=== PATIENT | male | born 1985 ===

== ENCOUNTER 2019-12-21 11:39 | Outpatient (REF) | payer BC, SELFPAY | END 2019-12-21 11:40 | disposition home or self-care (01) | LOC: HO.HMGCLDS 11:39 | PROVIDERS: PCP Internal Medicine; Visit Provider Internal Medicine | DX: Z20.828 Contact with and (suspected) exposure to other viral communicable diseases (principal) | CPT/HCPCS: 87635 ==

== ENCOUNTER 2021-11-25 07:50 | Outpatient (REF) | payer BC, SELFPAY ==
[2021-11-25 08:19] LABS: MANUAL DIFF FLAG NO
[2021-11-25 09:11] LABS: Basophils Absolute Auto 0.1 X10*3/uL (0.0-0.2); Basophils Percent Auto 0.7 % (0-2); Eosinophils Absolute Auto 0.2 X10*3/uL (0.0-0.4); Eosinophils Percent Auto 2.2 % (0-4); Hematocrit 53.3 % (42.0-52.0); Hemoglobin 17.5 g/dl (14.0-18.0); Imm Gran Abs Auto 0.06 X10*3/uL (0.00-0.03); Imm Gran Pct Auto 0.7 % (0.0-0.4); Lymphocytes Absolute Auto 2.9 X10*3/uL (1.2-4.9); Lymphocytes Percent Auto 36.4 % (20-40); Mean Corpuscular HGB Conc 32.8 g/dl (31.0-36.0); Mean Corpuscular Volume 85.3 fL (80.0-98.0); Mean Platelet Volume 11.7 fL (9.4-12.4); Monocytes Absolute Auto 0.5 X10*3/uL (0.1-1.2); Monocytes Percent Auto 6.6 % (2-11); Neutrophils Absolute Auto 4.3 x10*3/uL (2.0-8.3); Neutrophils Percent Auto 53.4 % (45-73); Platelet Count 187 X10*3/uL (160-400); Red Blood Count 6.25 X10*6/uL (4.60-5.80); Red Cell Distribution Width 13.7 % (11.0-16.0); White Blood Count 8.1 X10*3/uL (4.8-10.8)
[2021-11-25 09:23] LABS: Appearance Urine Clear; Color Urine Yellow; Glucose Urine UA 250 mg/dL (Negative); Leukocyte Esterase Urine Negative (Negative); Nitrite Urine Negative (Negative); PH 5.5 (5.0-9.0); Urine Blood Negative (Negative); Urine Ketones Negative (Negative); Urine Protein Negative (Neg-Trace)
[2021-11-25 09:47] LABS: Alanine Aminotransferase 101 U/L (0-40); Albumin Level 4.7 g/dL (3.5-5.0); Alkaline Phosphatase 74 U/L (39-117); Anion Gap 22 (12-20); Aspartate Amino Transferase 70 U/L (5-37); Bilirubin Total 0.5 mg/dL (0.0-1.0); Blood Urea Nitrogen 17 mg/dL (9-16); Calcium 9.9 mg/dL (8.4-10.2); Carbon Dioxide 21 mmol/L (22-29); Chloride 98 mmol/L (96-108); Cholesterol 332 mg/dL; Estimated Glomerular Filt Rate > 60; Glucose Fasting 154 mg/dL (60-99); HDL Cholesterol 31 mg/dL; Potassium 4.7 mmol/L (3.3-5.1); Sodium 136 mmol/L (135-145); Total Protein 8.6 g/dL (6.5-8.0); Uric Acid 6.2 mg/dL (3.4-7.0)
[2021-11-25 09:53] LABS: HBc Num1 0.09 S/CO (0.00-0.79); HIV AB/AG Nonreactive (Nonreactive); HIV Num 1 0.18 S/CO (0.00-0.99); Hepatitis B Core Antibody Nonreactive (Nonreactive); Hepatitis B Surface Antigen Negative (Negative); ~HepC Num1 0.11 S/CO (0.00-0.79); ~Hepatitis B Surface Antibody REACTIVE (Nonreactive); ~Hepatitis C Antibody Nonreactive (Nonreactive)
[2021-11-25 09:54] LABS: Triglycerides 1652 mg/dL
[2021-11-25 10:01] LABS: Vitamin D 25-OH Total 21.3 ng/mL (>30)
[2021-11-25 10:03] LABS: Syphilis Screen Nonreactive (Nonreactive)
[2021-12-02 11:21] LABS: HSV 1 IgM IFA Negative (Negative); HSV 2 IgM IFA Negative (Negative)
== END 2021-11-25 07:51 | disposition home or self-care (01) ==
LOC: HO.LAB 07:50
PROVIDERS: PCP Internal Medicine; Visit Provider Internal Medicine
DX: Z00.00 Encounter for general adult medical examination without abnormal findings (principal); E55.9 Vitamin D deficiency, unspecified; E78.00 Pure hypercholesterolemia, unspecified; I10 Essential (primary) hypertension; M10.9 Gout, unspecified; Z11.3 Encounter for screening for infections with a predominantly sexual mode of transmission
CPT/HCPCS: 36415; 80053; 80061; 81003; 82306; 84443; 84550; 85025; 86695; 86696; 86704; 86706; 86780; 86803; 87340; 87389

== ENCOUNTER 2021-12-10 13:20 | Outpatient (REF) | payer BC, SELFPAY ==
--- NOTE | ~2021-12-10 | US_ITS ---
EXAMINATION: US RETROPERITONEAL LIMITED (RENAL ONLY) CLINICAL INFORMATION: Calculus of kidney. COMPARISON: None TECHNIQUE: Real-time imaging of the kidneys. FINDINGS: RIGHT KIDNEY: 14.8 x 5.1 x 7.2 cm (SAG x AP x TRV). The kidney is normal in size, contour, and echogenicity. Renal cortical thickness is normal. No calculi or focal parenchymal lesions. No hydronephrosis. LEFT KIDNEY: 13.8 x 6.7 x 6.6 cm (SAG x AP x TRV). The kidney is normal in size, contour, and echogenicity. Renal cortical thickness is normal. There is a 3 x 3.1 x 3.5 cm cyst exophytic to the midpole. No renal calculi or hydronephrosis. The liver is echogenic. US/US renal BI IMPRESSION: No stone seen. Left renal cyst.
== END 2021-12-10 13:21 | disposition home or self-care (01) ==
LOC: HO.US 13:20
PROVIDERS: Visit Provider Internal Medicine
DX: N20.0 Calculus of kidney (principal)
CPT/HCPCS: 76775

== ENCOUNTER 2022-04-12 10:56 | Outpatient (REF) | payer BC, SELFPAY ==
[2022-04-12 12:38] LABS: Appearance Urine Clear; Color Urine Yellow; Glucose Urine UA >=1000 mg/dL (Negative); Leukocyte Esterase Urine Negative (Negative); Nitrite Urine Negative (Negative); PH 6.5 (5.0-9.0); Specific Gravity - Urine >= 1.030 (1.005-1.025); UMIC TRIGGER UACC YES; Urine Blood Negative (Negative); Urine Ketones Negative (Negative); Urine Protein Negative (Neg-Trace)
[2022-04-12 12:55] LABS: Bacteria Urine None Seen (None Seen); Hyaline Casts Urine 0-2 /LPF (0-2); RBC Urine 0-2 /HPF (0-2); Squamous Epithelial Cell Urine 0-2 /HPF (0-2); WBC Urine 0-5 /HPF (0-5)
== END 2022-04-12 10:57 | disposition home or self-care (01) ==
LOC: HO.LAB 10:56
PROVIDERS: PCP Internal Medicine; Visit Provider Internal Medicine
DX: N20.0 Calculus of kidney (principal); R39.9 Unspecified symptoms and signs involving the genitourinary system
CPT/HCPCS: 81001

== ENCOUNTER 2022-04-18 05:11 | Emergency (ER) | payer BC, SELFPAY ==
[2022-04-18 05:26] VITALS: PULSE 100; RESP 21; TEMP 36.9; O2SAT 98; BMI 31.6
--- NOTE | 2022-04-18 05:42 | PC.NURSE ---
Patient states that his lips and mouth feels dry and he felt like he had a fever sometimes this week but is not sure. He reports drinking adequately but goes to the bathroom instantly and urines.
[2022-04-18 06:04] LABS: Basophils Absolute Auto 0.1 X10*3/uL (0.0-0.2); Basophils Percent Auto 0.6 % (0-2); Eosinophils Absolute Auto 0.2 X10*3/uL (0.0-0.4); Eosinophils Percent Auto 1.5 % (0-4); Hematocrit 48.1 % (42.0-52.0); Imm Gran Abs Auto 0.07 X10*3/uL (0.00-0.03); Imm Gran Pct Auto 0.6 % (0.0-0.4); Lymphocytes Absolute Auto 1.9 X10*3/uL (1.2-4.9); Lymphocytes Percent Auto 16.5 % (20-40); Mean Corpuscular Volume 84.4 fL (80.0-98.0); Mean Platelet Volume 11.5 fL (9.4-12.4); Monocytes Absolute Auto 0.9 X10*3/uL (0.1-1.2); Monocytes Percent Auto 8.1 % (2-11); Neutrophils Absolute Auto 8.1 x10*3/uL (2.0-8.3); Neutrophils Percent Auto 72.7 % (45-73); Platelet Count 229 X10*3/uL (160-400); Red Cell Distribution Width 14.4 % (11.0-16.0); SCAN SMEAR FLAG 1; White Blood Count 11.2 X10*3/uL (4.8-10.8)
[2022-04-18 06:08] LABS: Hemoglobin 16.1 g/dl (14.0-18.0); MANUAL DIFF FLAG NO; Mean Corpuscular HGB Conc 33.5 g/dl (31.0-36.0); Mean Corpuscular Hemoglobin 28.2 pg (27.0-33.0)
[2022-04-18 07:09] LABS: Appearance Urine Clear; Color Urine Yellow; Glucose Urine UA >=1000 mg/dL (Negative); Leukocyte Esterase Urine Negative (Negative); Nitrite Urine Negative (Negative); PH 5.5 (5.0-9.0); Specific Gravity - Urine >= 1.030 (1.005-1.025); UMIC TRIGGER UACC YES; Urine Blood Negative (Negative); Urine Ketones Negative (Negative); Urine Protein Negative (Neg-Trace)
--- NOTE | 2022-04-18 07:13 | ED_ITS ---
HPI - Male Genitourinary General Chief complaint: Urogenital-Male Stated complaint: ?UTI Time Seen by Provider: 04/18/22 06:38 Mode of arrival: ambulatory Limitations: no limitations History of Present Illness HPI Narrative: This is a 36 years old male presented to the emergency room with chief complaint of frequency of urination, he is concerned about a UTI. Symptoms have been going on for about 2 week. He denies any fever chills vomiting abdominal pain Onset (ago): week(s) (2) Duration: constant Severity: moderate Relieving factors: none Exacerbating factors: none Related Data Previous Rx's Medication Instructions Recorded amlodipine 5 mg tablet 5 mg PO DAILY 90 days #90 tabs 11/24/21 lisinopril 40 mg tablet 40 mg PO DAILY 90 days #90 tabs 11/24/21 allopurinol 300 mg tablet 300 mg PO DAILY 90 days #90 tabs 04/17/22 atorvastatin 40 mg tablet 40 mg PO DAILY 90 days #90 tabs 04/17/22 indomethacin 25 mg capsule 25 mg PO BID 90 days #180 caps 04/17/22 metformin 500 mg tablet 500 mg PO BID #30 tabs 04/18/22 Allergies Allergy/AdvReac Type Severity Reaction Status Date / Time codeine [CODEINE] Allergy Unknown UNKNOWN Verified 11/24/21 14:18 Review of Systems Constitutional: Constitutional: Reports no additional constitutional complaints ENT: Reports system reviewed and no additional complaints, except as documented Respiratory: Respiratory: Reports no additional respiratory complaints Genitourinary: Genitourinary: Reports urinary frequency and Reports urinary urgency ON LICENSE OF [facility] Past Medical History Medical History Asthma Benign essential hypertension Gout Obesity (BMI 30-39.9) Obstructive sleep apnea Pure hypercholesterolemia Renal calculi Surgical History No pertinent past surgical history Family History Family History Father Hypertension Stroke Mother Hypertension Maternal Grandfather Myocardial infarction Social History Social History Housing: Apartment Alcohol intake: current Alcohol intake frequency: holidays/special occasions only Patient Tobacco Use Status: Never used Tobacco Second Hand Smoke Exposure: Yes Advance Directives: No service: No Current occupational status: employed Cognitive needs: No Hearing needs: No Vision needs: Yes Physical Exam Vital Signs: Vital Signs: Last Vital Signs Temp 98.0 F 04/18/22 12:42 Pulse 123 H 04/18/22 12:42 Resp 16 04/18/22 12:42 BP 141/96 H 04/18/22 12:42 Pulse Ox 96 04/18/22 12:42 O2 Del Method 04/18/22 12:42 BMI result Body Mass Index 31.6 Const: General: cooperative Nutritional Appearance: well nourished Orientation/consciousness: patient oriented x3 HEENT: Head: Yes normal to inspection Ears: hearing grossly normal bilaterally General nose exam: Normal external nose present Face and sinus: Yes normal facial exam Mouth: Normal oral and palatal mucosa present Throat: Yes posterior oropharynx normal Neck: Neck: Yes normal visual inspection and Yes full ROM Resp: Effort & Inspection: normal respiratory effort Auscultation: clear to auscultation bilaterally Cardio: Jugular venous distension: no JVD Rate: regular rate Rhythm: regular rhythm GI: Inspection: Yes normal to inspection Palpation (GI): Soft to palpation, not firm, nontender and no guarding Skin: General skin exam: no rashes or lesions noted, elasticity normal and turgor normal Lesions: no lesions Rashes: no rashes Neuro: General: patient oriented x3 Cranial nerves: Yes CN's II-XII intact bilaterally Course Reevaluation(s) Reevaluation #1: Point of care glucose done elevated too high to read, clinical picture is cons istent with the new onset of diabetes likely type 2, will give him fluid check his electrolytes/ acetone Time: 07:19 Reevaluation #2: BLOOD SUGAR 343 BETTER C02 normal,feeling much better. Time: 13:11 Reevaluation #3: BLOOD SUGAR 325 ANTICIPATE DISCHARGE CALL PLACED TO PCP x 2 NO ANSWER Additional Reevaluation(s): 1.15 PM SPOKE WITH COVERING pcp dr Zapata,agree with plan of care Medications Administered Discontinued Medications Generic Name Dose Route Start Last Admin Trade Name Freq PRN Reason Stop Dose Admin Sodium Chloride 1,000 mls @ 999 mls/hr 04/18/22 07:30 04/18/22 09:26 Ns IVCONT 04/18/22 08:30 Infused .Q1H1M KLAUDIA Infusion Sodium Chloride 1,000 mls @ 999 mls/hr 04/18/22 07:30 04/18/22 09:27 Ns IVCONT 04/18/22 08:30 Infused .Q1H1M KLAUDIA Infusion Sodium Chloride 1,000 mls @ 999 mls/hr 04/18/22 08:30 04/18/22 11:39 Ns IVCONT 04/18/22 09:30 Infused .Q1H1M KLAUDIA Infusion Metformin HCl 500 mg 04/18/22 11:34 04/18/22 12:52 Metformin Hcl 500 Mg Tablet PO 04/18/22 11:35 500 mg ONCE ONE Administration Medical Decision Making Medical Decision Making MDM Narrative: Patient presented with frequency will check a UA labs 13:16 BLOOD SUGAR MUCH BETTER JUST WITH FLUID WENT FROM 600 RANGE TO 315 Differential Diagnosis Differential Diagnoses: The differential diagnosis associated with the presentation includes Differential diagnosis UTI/kidney stone/diabetes Lab Data 04/18/22 05:59 Labs: Lab Results 04/18/22 04/18/22 04/18/22 Range/Units 05:59 06:55 07:15 WBC 11.2 H (4.8-10.8) X10*3/uL RBC 5.70 (4.60-5.80) X10*6/uL Hgb 16.1 (14.0-18.0) g/dl Hct 48.1 (42.0-52.0) % MCV 84.4 (80.0-98.0) fL MCH 28.2 (27.0-33.0) pg MCHC 33.5 (31.0-36.0) g/dl RDW 14.4 (11.0-16.0) % Plt Count 229 (160-400) X10*3/uL MPV 11.5 (9.4-12.4) fL Immature Gran % (Auto) 0.6 H (0.0-0.4) % Neut % (Auto) 72.7 (45-73) % Lymph % (Auto) 16.5 L (20-40) % [place] % (Auto) 8.1 (2-11) % Eos % (Auto) 1.5 (0-4) % Baso % (Auto) 0.6 (0-2) % Lymph # (Auto) 1.9 (1.2-4.9) X10*3/uL [place] # (Auto) 0.9 (0.1-1.2) X10*3/uL Eos # (Auto) 0.2 (0.0-0.4) X10*3/uL Baso # (Auto) 0.1 (0.0-0.2) X10*3/uL Abs Immat Gran (auto) 0.07 H (0.00-0.03) X10*3/uL Absolute Neuts (auto) 8.1 (2.0-8.3) x10*3/uL Absolute Nucleated RBC 0.000 (0.0-0.012) X10*3/uL Nucleated RBC % (auto) 0.0 (0.0-0.2) /100WBC Sodium (135-145) mmol/L Potassium (3.3-5.1) mmol/L Chloride (96-108) mmol/L Carbon Dioxide (22-29) mmol/L Anion Gap (12-20) BUN (9-16) mg/dL Creatinine (0.5-1.4) mg/dL Estim Creat Clear Calc Estimated GFR POC Glucose > 600 H* (60-115) mg/dL Random Glucose (60-115) mg/dL Calcium (8.4-10.2) mg/dL Total Bilirubin (0.0-1.0) mg/dL AST (5-37) U/L ALT (0-40) U/L Alkaline Phosphatase (39-117) U/L Total Protein (6.5-8.0) g/dL Albumin (3.5-5.0) g/dL Urine Color Yellow Urine Appearance Clear Urine pH 5.5 (5.0-9.0) Ur Specific [place] >= 1.030 H (1.005-1.025) Urine Protein Negative (Neg-Trace) mg/dL Urine Glucose (UA) >=1000 H (Negative) mg/dL Urine Ketones Negative (Negative) mg/dL Urine Blood Negative (Negative) Urine Nitrite Negative (Negative) Ur Leukocyte Esterase Negative (Negative) Urine RBC 0-2 (0-2) /HPF Urine WBC 0-5 (0-5) /HPF Ur Squamous Epith Cells 0-2 (0-2) /HPF Urine Bacteria None Seen (None Seen) Hyaline Casts 0-2 (0-2) /LPF Acetone, Qual (Negative) 04/18/22 04/18/22 04/18/22 Range/Units 07:19 07:19 07:25 WBC (4.8-10.8) X10*3/uL RBC (4.60-5.80) X10*6/uL Hgb (14.0-18.0) g/dl Hct (42.0-52.0) % MCV (80.0-98.0) fL MCH (27.0-33.0) pg MCHC (31.0-36.0) g/dl RDW (11.0-16.0) % Plt Count (160-400) X10*3/uL MPV (9.4-12.4) fL Immature Gran % (Auto) (0.0-0.4) % Neut % (Auto) (45-73) % Lymph % (Auto) (20-40) % [place] % (Auto) (2-11) % Eos % (Auto) (0-4) % Baso % (Auto) (0-2) % Lymph # (Auto) (1.2-4.9) X10*3/uL [place] # (Auto) (0.1-1.2) X10*3/uL Eos # (Auto) (0.0-0.4) X10*3/uL Baso # (Auto) (0.0-0.2) X10*3/uL Abs Immat Gran (auto) (0.00-0.03) X10*3/uL Absolute Neuts (auto) (2.0-8.3) x10*3/uL Absolute Nucleated RBC (0.0-0.012) X10*3/uL Nucleated RBC % (auto) (0.0-0.2) /100WBC Sodium 132 L (135-145) mmol/L Potassium 5.0 (3.3-5.1) mmol/L Chloride 92 L (96-108) mmol/L Carbon Dioxide 24 (22-29) mmol/L Anion Gap 21 H (12-20) BUN 14 (9-16) mg/dL Creatinine 1.36 (0.5-1.4) mg/dL Estim Creat Clear Calc 84.6 Estimated GFR 59 POC Glucose 593 H* (60-115) mg/dL Random Glucose 662 H* (60-115) mg/dL Calcium 9.4 (8.4-10.2) mg/dL Total Bilirubin 0.5 (0.0-1.0) mg/dL AST 29 (5-37) U/L ALT 58 H (0-40) U/L Alkaline Phosphatase 148 H (39-117) U/L Total Protein 7.8 (6.5-8.0) g/dL Albumin 4.1 (3.5-5.0) g/dL Urine Color Urine Appearance Urine pH (5.0-9.0) Ur Specific [place] (1.005-1.025) Urine Protein (Neg-Trace) mg/dL Urine Glucose (UA) (Negative) mg/dL Urine Ketones (Negative) mg/dL Urine Blood (Negative) Urine Nitrite (Negative) Ur Leukocyte Esterase (Negative) Urine RBC (0-2) /HPF Urine WBC (0-5) /HPF Ur Squamous Epith Cells (0-2) /HPF Urine Bacteria (None Seen) Hyaline Casts (0-2) /LPF Acetone, Qual Negative (Negative) 04/18/22 04/18/22 Range/Units 11:01 11:49 WBC (4.8-10.8) X10*3/uL RBC (4.60-5.80) X10*6/uL Hgb (14.0-18.0) g/dl Hct (42.0-52.0) % MCV (80.0-98.0) fL MCH (27.0-33.0) pg MCHC (31.0-36.0) g/dl RDW (11.0-16.0) % Plt Count (160-400) X10*3/uL MPV (9.4-12.4) fL Immature Gran % (Auto) (0.0-0.4) % Neut % (Auto) (45-73) % Lymph % (Auto) (20-40) % [place] % (Auto) (2-11) % Eos % (Auto) (0-4) % Baso % (Auto) (0-2) % Lymph # (Auto) (1.2-4.9) X10*3/uL [place] # (Auto) (0.1-1.2) X10*3/uL Eos # (Auto) (0.0-0.4) X10*3/uL Baso # (Auto) (0.0-0.2) X10*3/uL Abs Immat Gran (auto) (0.00-0.03) X10*3/uL Absolute Neuts (auto) (2.0-8.3) x10*3/uL Absolute Nucleated RBC (0.0-0.012) X10*3/uL Nucleated RBC % (auto) (0.0-0.2) /100WBC Sodium (135-145) mmol/L Potassium (3.3-5.1) mmol/L Chloride (96-108) mmol/L Carbon Dioxide (22-29) mmol/L Anion Gap (12-20) BUN (9-16) mg/dL Creatinine (0.5-1.4) mg/dL Estim Creat Clear Calc Estimated GFR POC Glucose 342 H 325 H (60-115) mg/dL Random Glucose (60-115) mg/dL Calcium (8.4-10.2) mg/dL Total Bilirubin (0.0-1.0) mg/dL AST (5-37) U/L ALT (0-40) U/L Alkaline Phosphatase (39-117) U/L Total Protein (6.5-8.0) g/dL Albumin (3.5-5.0) g/dL Urine Color Urine Appearance Urine pH (5.0-9.0) Ur Specific [place] (1.005-1.025) Urine Protein (Neg-Trace) mg/dL Urine Glucose (UA) (Negative) mg/dL Urine Ketones (Negative) mg/dL Urine Blood (Negative) Urine Nitrite (Negative) Ur Leukocyte Esterase (Negative) Urine RBC (0-2) /HPF Urine WBC (0-5) /HPF Ur Squamous Epith Cells (0-2) /HPF Urine Bacteria (None Seen) Hyaline Casts (0-2) /LPF Acetone, Qual (Negative) Discharge Plan Discharge Clinical Impression: Diabetes mellitus, new onset Patient Disposition: Home, Self-Care Instructions: Type 2 Diabetes in Adults: New Diagnosis (ED) Additional Instructions: FOLLOW-UP WITH YOUR PRIMARY CARE PHYSICIAN TOMORROW SCHEDULED RETURN IF YOU WORSE Prescriptions: New metformin 500 mg tablet 500 mg PO BID Qty: 30 0RF No Action atorvastatin 40 mg tablet 40 mg PO DAILY 90 Days Qty: 90 1RF allopurinol 300 mg tablet 300 mg PO DAILY 90 Days Qty: 90 1RF indomethacin 25 mg capsule 25 mg PO BID 90 Days Qty: 180 1RF amlodipine 5 mg tablet 5 mg PO DAILY 90 Days Qty: 90 1RF lisinopril 40 mg tablet 40 mg PO DAILY 90 Days Qty: 90 1RF Rx Instructions: 1 tablet Orally Once a day Referrals: Aurelio Sellers MD [Primary Care Provider] - 1 day Interventions: ED Discharge Assessment Last Done: 04/18/22 14:03 Discharge Date/Time: 04/18/22 14:03
[2022-04-18 07:14] LABS: Bacteria Urine None Seen (None Seen); Hyaline Casts Urine 0-2 /LPF (0-2); RBC Urine 0-2 /HPF (0-2); Squamous Epithelial Cell Urine 0-2 /HPF (0-2); WBC Urine 0-5 /HPF (0-5)
[2022-04-18 07:19] LABS: Glucose, Whole Blood > 600 mg/dL (60-115)
[2022-04-18] MEDS: 0.9 % Sodium Chloride 1,000 ML 999 ML IVCONT ×3 (07:25→09:18)
[2022-04-18 07:28] LABS: Glucose, Whole Blood 593 mg/dL (60-115)
[2022-04-18 07:38] LABS: Acetone, serum QL Negative (Negative)
[2022-04-18 08:16] LABS: Alanine Aminotransferase 58 U/L (0-40); Albumin Level 4.1 g/dL (3.5-5.0); Alkaline Phosphatase 148 U/L (39-117); Anion Gap 21 (12-20); Aspartate Amino Transferase 29 U/L (5-37); Bilirubin Total 0.5 mg/dL (0.0-1.0); Blood Urea Nitrogen 14 mg/dL (9-16); Calcium 9.4 mg/dL (8.4-10.2); Carbon Dioxide 24 mmol/L (22-29); Chloride 92 mmol/L (96-108); Creatinine Clr Calc Pharmacy 84.6; Estimated Glomerular Filt Rate 59; Glucose Random 662 mg/dL (60-115); Sodium 132 mmol/L (135-145); Total Protein 7.8 g/dL (6.5-8.0)
[2022-04-18 08:21] VITALS: BP 134/92; PULSE 118; RESP 16; O2SAT 94
[2022-04-18 11:04] LABS: Glucose, Whole Blood 342 mg/dL (60-115)
[2022-04-18 11:53] LABS: Glucose, Whole Blood 325 mg/dL (60-115)
[2022-04-18 12:42] VITALS: BP 141/96; PULSE 123; RESP 16; TEMP 36.7; O2SAT 96
[2022-04-18] MEDS: metFORMIN HCl 500 MG TABLET PO (12:52)
== END 2022-04-18 14:03 | disposition home or self-care (01) ==
PROVIDERS: Emergency Provider Emergency Medicine; PCP Internal Medicine
DX: E11.9 Type 2 diabetes mellitus without complications (principal); Z79.899 Other long term (current) drug therapy
CPT/HCPCS: 36415; 80053; 81001; 82009; 82947; 85025; 96360; 96361; 99284

== ENCOUNTER 2022-04-21 11:19 | Inpatient (IN) | payer BC, SELFPAY ==
[2022-04-21] VITALS (11 sets, daily range): BP systolic 96–114; BP diastolic 40–65; PULSE 122–135; RESP 22–38; TEMP 36.1–37.7; O2SAT 94–99; BMI 31.4
--- NOTE | ~2022-04-21 | FL_ITS ---
EXAMINATION: XR UPPER GI SERIES WITH SMALL BOWEL CLINICAL INFORMATION: Duodenitis, pancreatitis. COMPARISON: CT abdomen and pelvis 04/24/2022. TECHNIQUE: Routine upper GI series performed with small bowel follow-through was performed. FINDINGS: KUB reveals nonspecific bowel gas pattern. No radiopaque calculi. No organomegaly. No gross bony abnormality. Following oral administration of thick barium and effervescent granules, there is normal propagation of bolus from oral cavity through the pharynx and esophagus and into the stomach without obstruction, narrowing or stricture. On placing patient supine and prone lying, the course, caliber and peristalsis of the stomach, duodenal bulb and the sweep is normal. No mucosal irregularity seen involving any segments of the duodenum as was felt to be of normal on the preceding CT abdomen pelvis exam. There is no gastroesophageal reflux or hiatal hernia. Sequential images obtained of small bowel reveal normal course, caliber and mucosal pattern of the small bowel. The ileocecal junction is normal. The appendix is normal. The cecum and ascending colon is normal. The small bowel transit time is 60 minutes and less. FLUOROSCOPY TIME: 3.5 minutes. DOSE AREA PRODUCT: 91.090 Gy-cm2. FL/FL upper GI small bowel IMPRESSION: Normal upper GI exam. Especially no abnormal mucosal abnormality seen involving the distal duodenum bulb or the C-loop. No gastroesophageal reflux. Unremarkable small bowel follow-through with small bowel transit time of less than 60 minutes.
--- NOTE | ~2022-04-21 | CT_ITS ---
EXAMINATION: CT ABDOMEN AND PELVIS WITH CONTRAST CLINICAL INFORMATION: Increased triglycerides COMPARISON: CT abdomen pelvis 3 days ago on 04/21/2022 TECHNIQUE: Multidetector volumetric images were obtained from the superior aspect of the liver through the pubic symphysis following administration 85 mL of Omnipaque 350 intravenous contrast. Sagittal and coronal reformatted images were obtained on the technologist's workstation. Oral contrast: No This CT examination was performed using dose optimization techniques as appropriate, variously including the following: *Automated exposure control *Adjustment of mA and/or kV according to patient size (this includes techniques or standardized protocols for targeted exams where dose is matched to indication/reason for exam; i.e. extremities or head) *Use of iterative reconstruction technique DLP: 668 mGy-cm FINDINGS: LUNG BASES: New bibasilar atelectasis is present. Coronary artery calcification is present. LIVER, GALLBLADDER, AND BILIARY TREE: The liver is again noted to be markedly enlarged at 23 cm with markedly decreased attenuation consistent with hepatic steatosis. Focal fatty sparing is noted around the gallbladder, falciform ligament and in the caudate No focal hepatic lesion or biliary ductal dilatation is present. The gallbladder is unremarkable with no evidence of radiopaque gallstones, gallbladder wall thickening, or obvious pericholecystic inflammatory changes. PANCREAS: The pancreas appears normal and enhances uniformly with a normal lobular contour SPLEEN: Unremarkable. ADRENAL GLANDS: Unremarkable. KIDNEYS AND URETERS: The kidneys are normal in size, shape, and attenuation. No hydronephrosis, hydroureter, or calculi seen. Again seen is a benign cortical 3.5 cm Bosniak class I left renal cyst which needs no additional imaging or follow-up. No perinephric stranding. BLADDER: There is symmetric bladder wall thickening. GASTROINTESTINAL TRACT: Once again seen is a severe inflammatory process centered around the second and third portion of the duodenum. Again seen is a small fluid collection tracking from the region of the duodenal bulb along the anterior pararenal fascia which has increased in size measuring 2.1 x 2.1 x 3.0 cm previously measuring 1.4 x 1.8 x 2.8 cm. Again seen is marked thickening of the third portion of the duodenum as well as the anterior pararenal fascia on the right, slightly increased when compared to prior. The findings remain highly suspicious for a ruptured duodenal ulcer. Another consideration would be the presence of ectopic pancreas and the duodenum and pancreatitis Again seen is thickening of the distal ascending colon which is probably a secondary reactive finding. The remainder of the colon appears unremarkable aside from colonic diverticula without diverticulitis. The appendix is normal. ABDOMINAL WALL: No significant hernia is appreciated. LYMPH NODES: No retroperitoneal lymphadenopathy. VASCULAR: Unremarkable. PELVIC VISCERA: The prostate and seminal vesicles are unremarkable. OSSEOUS STRUCTURES: Unremarkable. CT/CT abdomen pelvis w IV con IMPRESSION: 1. Severe inflammatory process centered around the second and third portion of the duodenum. The pancreas appears normal. Findings remain suspicious for a ruptured duodenal ulcer. Another possibility would be pancreatitis related to ectopic pancreas in the duodenum, which would be rare. GI consultation and endoscopy may be useful for further evaluation 2. Markedly enlarged fatty liver. Fleischner guidelines were followed. This critical result was discussed with Rimma Tejeda NP at 10:00 PM on the day of the exam and it was ascertained that the content and urgency of the report was understood at the time of direct communication.
--- NOTE | ~2022-04-21 | XR_ITS ---
EXAMINATION: XR CHEST CLINICAL INFORMATION: Shortness of breath COMPARISON: 08/03/2016 TECHNIQUE: Frontal view of the chest was obtained. FINDINGS: No significant abnormality is noted involving the heart, lungs, mediastinum, bony thorax or soft tissues. XR/XR chest 1V IMPRESSION: Unremarkable examination.
--- NOTE | ~2022-04-21 | CT_ITS ---
EXAMINATION: CT ABDOMEN AND PELVIS WITHOUT CONTRAST CLINICAL INFORMATION: Right lower abdominal pain COMPARISON: None TECHNIQUE: Multidetector volumetric imaging was performed from the superior aspect of the liver through the pubic symphysis. Sagittal and coronal reformatted images were obtained on the technologist's workstation. This CT examination was performed using dose optimization techniques as appropriate, variously including the following: *Automated exposure control *Adjustment of mA and/or kV according to patient size (this includes techniques or standardized protocols for targeted exams where dose is matched to indication/reason for exam; i.e. extremities or head) *Use of iterative reconstruction technique DLP: 639 mGy-cm FINDINGS: LUNG BASES: The visualized lung bases are unremarkable. LIVER, GALLBLADDER, AND BILIARY TREE: The liver is markedly enlarged at 22.3 cm with markedly decreased attenuation consistent with hepatic steatosis. No focal hepatic lesion or biliary ductal dilatation is present. The gallbladder is unremarkable with no evidence of radiopaque gallstones, gallbladder wall thickening, or obvious pericholecystic inflammatory changes. PANCREAS: The majority of the pancreas appears normal. In the region of the uncinate process/pancreatic head there is a inflammatory process-see below. I believe the pancreas is secondarily involved and that this is not primarily related to pancreatitis. SPLEEN: Unremarkable. ADRENAL GLANDS: Unremarkable. KIDNEYS AND URETERS: The kidneys are normal in size, shape, and attenuation. No hydronephrosis, hydroureter, or calculi seen. Benign cortical 3.5 cm Bosniak class I left renal cysts needs no additional imaging or follow-up. No perinephric stranding. BLADDER: Unremarkable. GASTROINTESTINAL TRACT: There is a severe inflammatory process centered around the second and third portion of the duodenum as well as the pancreatic head. A small fluid collection can be seen tracking from the region of the duodenal bulb (2:36) along the anterior pararenal fascia measuring 10.4 x 1.8 x 2.8 cm. There is marked thickening of the third portion of the duodenum as well as the anterior pararenal fascia on the right. Findings are highly suspicious for a ruptured duodenal ulcer. There is thickening of the distal descending colon which is probably a secondary reactive finding. The remainder of the colon appears unremarkable aside from colonic diverticula without diverticulitis. The appendix is normal. ABDOMINAL WALL: No significant hernia is appreciated. LYMPH NODES: No retroperitoneal lymphadenopathy. VASCULAR: Unremarkable. PELVIC VISCERA: The prostate and seminal vesicles are unremarkable. OSSEOUS STRUCTURES: Unremarkable. CT/CT abdomen pelvis wo IV con IMPRESSION: 1. Severe inflammatory process centered around the second and third portion of the duodenum as well as the pancreatic head. Findings are highly suspicious for a ruptured duodenal ulcer. Inflammatory changes around the pancreatic head are probably secondary as are the inflammatory changes around the distal descending colon 2. Markedly enlarged fatty liver. Fleischner guidelines were followed. This critical result was discussed with Lizette MCDANIELS at 1:10 PM on the day the exam and it was ascertained that the content and urgency of the report was understood at the time of direct communication.
--- NOTE | 2022-04-21 11:40 | ED.ABDPAIN ---
HPI - Abdominal Pain General Chief Complaint: Abdominal Pain <ENEDELIA Jose - Last Filed: 04/21/22 11:51> Stated Complaint: sob, L abd pain <ENEDELIA Jose - Last Filed: 04/21/22 11:51> Time Seen by Provider: 04/21/22 12:59 <ENEDELIA Jose - Last Filed: 04/21/22 11:51> Source: patient <Ruth Ann Marcano MD - Last Filed: 04/21/22 14:36> Mode of arrival: ambulatory <Ruth Ann Marcano MD - Last Filed: 04/21/22 14:36> Limitations: no limitations <Ruth Ann Marcano MD - Last Filed: 04/21/22 14:36> History of Present Illness HPI narrative: The patient comes to the emergency room complaining of periumbilical and right lower quadrant pain and epigastric pain for approximately 5 days. Patient states that he was diagnosed with type 2 diabetes for days ago. Patient states that he has had constant pain. Patient denies nausea vomiting or diarrhea, no fever or chills. Patient complaining of intermittent dysuria <Ruth Ann Marcano MD - Last Filed: 04/21/22 14:36> Related Data Home Medications: Home Medications Medication Instructions Recorded Confirmed aspirin 81 mg tablet 81 mg PO DAILY 04/21/22 04/21/22 Previous Rx's Medication Instructions Recorded amlodipine 5 mg tablet 5 mg PO DAILY 90 days #90 tabs 11/24/21 lisinopril 40 mg tablet 40 mg PO DAILY 90 days #90 tabs 11/24/21 allopurinol 300 mg tablet 300 mg PO DAILY 90 days #90 tabs 04/17/22 atorvastatin 40 mg tablet 40 mg PO DAILY 90 days #90 tabs 04/17/22 indomethacin 25 mg capsule 25 mg PO BID 90 days #180 caps 04/17/22 Jardiance 10 mg tablet 10 mg PO QAM 30 days #30 tabs 04/19/22 (empagliflozin) Lantus Solostar U-100 Insulin 100 20 unit (0.2 mL) subcut BEDTIME 30 04/19/22 unit/mL (3 mL) subcutaneous pen days #6 mL (insulin glargine) blood sugar diagnostic (FreeStyle #100 ea 04/19/22 Test strips) blood-glucose meter (FreeStyle #1 ea 04/19/22 Lite Meter kit) lancets 28 gauge (FreeStyle #100 ea 04/19/22 Lancets) metformin 500 mg tablet 500 mg PO BID 30 days #60 tabs 04/19/22 pen needle, diabetic 32 gauge x #100 ea 04/19/22 (BD Ultra-Fine Betzy Pen Needle) <ENEDELIA Jose - Last Filed: 04/21/22 11:51> Allergies/Adverse Reactions: Allergies Allergy/AdvReac Type Severity Reaction Status Date / Time codeine [CODEINE] Allergy Unknown UNKNOWN Verified 04/21/22 11:47 <ENEDELIA Jose - Last Filed: 04/21/22 11:51> Review of Systems Review of Systems Constitutional : No Weight loss, No Fever, No Chills, No Night Sweats, No Fatigue, No Malaise ENT/Mouth : No Hearing loss, No Ear Pain, No Nasal Congestion, No Sinus Pain, No Hoarseness, No sore throat, No Rhinorrhea, No Swallowing Difficulty Eyes: No Eye Pain, No Swelling, No Redness, No Foreign Body, No Discharge, No Vision Changes Cardiovascular : No Chest Pain, No SOB, No Dyspnea on Exertion, No Orthopnea, No Edema, No Palpitations Respiratory : No Cough, No Sputum, No Wheezing, No Smoke Exposure, No Dyspnea Gastrointestinal : No Nausea, No Vomiting, No Diarrhea, No Constipation, complaining of epigastric, periumbilical and right lower quadrant pain, constant for 5 days Genitourinary : no irregular bleeding, No Dysuria, No Urinary Frequency, No Hematuria, No Urinary Incontinence, No Urgency, No Flank Pain, No Urinary Flow Changes, No Hesitancy Musculoskeletal : No joint pain, No Myalgias, No Joint Swelling Skin : No Skin Lesions, No rash Neuro : No Weakness, No Numbness, No Paresthesias, No Loss of Consciousness, No Dizziness, No Headache Psych : No Anxiety/Panic, No Depression, No SI/HI/AH/VH, No Social Issues, Heme/Lymph: No Bruising, No Bleeding,No Lymphadenopathy Endocrine : No Polyuria, No Polydipsia, No Temperature Intolerance <Ruth Ann Marcano MD - Last Filed: 04/21/22 14:36> [facility] Past Medical History Medical History: Medical History Abdominal pain Asthma Benign essential hypertension Diabetes mellitus Gout Obesity (BMI 30-39.9) Obstructive sleep apnea Pure hypercholesterolemia Renal calculi <ENEDELIA Jose - Last Filed: 04/21/22 11:51> Surgical History: Surgical History No pertinent past surgical history <ENEDELIA Jose - Last Filed: 04/21/22 11:51> Family History Family History: Family History Father Hypertension Stroke Mother Hypertension Maternal Grandfather Myocardial infarction <ENEDELIA Jose - Last Filed: 04/21/22 11:51> Social History Social History: Social History Housing: Apartment Alcohol intake: current Alcohol intake frequency: does not drink Patient Tobacco Use Status: Never used Tobacco Smoked in Last 30 Days: No Second Hand Smoke Exposure: Yes Use of substances other than those prescribed or required for medical reasons: No Advance Directives: No Advance Directives Information Provided: No Nutrition Risks: No Nutritional Risk service: No Current occupational status: employed Cognitive needs: No Hearing needs: No Vision needs: Yes <ENEDELIA Jose - Last Filed: 04/21/22 11:51> Physical Exam ED Vital Signs: Vital Signs - 24 hr 04/21/22 11:40 04/21/22 14:12 Temperature 97.0 F 98.4 F Pulse Rate 135 H 133 H Respiratory Rate 24 H 35 H Blood Pressure 114/65 100/48 L Pulse Oximetry 99 95 Oxygen Delivery Method Room Air Room Air BMI result Body Mass Index 31.4 <ENEDELIA Jose - Last Filed: 04/21/22 11:51> Vital Signs - 24 hr 04/21/22 11:40 04/21/22 14:12 Temperature 97.0 F 98.4 F Pulse Rate 135 H 133 H Respiratory Rate 24 H 35 H Blood Pressure 114/65 100/48 L Pulse Oximetry 99 95 Oxygen Delivery Method Room Air Room Air BMI result Body Mass Index 31.4 <Ruth Ann Marcano MD - Last Filed: 04/21/22 14:36> Const Other: Appearance: Alert. Oriented X3. No acute distress. Eyes: Pupils equal, round and reactive to light. ENT: Pharynx normal. Neck: Normal inspection. Neck supple. No lymph nodes noted. No crepitus CVS: Normal heart rate and rhythm. Pulses normal. Normal S1 and S2 Respiratory: No respiratory distress. Breath sounds normal. No Wheezing. No rales Abdomen: Soft mild to moderate distension, pain to palpation in epigastric, right upper and lower quadrant and periumbilical area. No CVA tenderness, no guarding, no rebound, no acute abdomen Skin: Skin warm and dry. Normal skin color. Normal skin turgor. Extremities: No lower extremity edema. No Lacerations. No Rash Neuro: Oriented X 3. No motor deficit. No sensory deficit. Moving all extremities. No slurred speech. CN 2 through 12 grossly intact Psych: calm, cooperative, normal affect <Ruth Ann Marcano MD - Last Filed: 04/21/22 14:36> Course Course Course Narrative: 36 y/o M presenting for evaluation of constant right lower abdominal pain x 5 days. Started clair-umbilically and moved to right lower quadrant. Rating current pain 5/10. Patient was seen here 4 days ago where he was diagnosed with diabetes. Currently feeling SOB, low appetite. No CP, nausea/vomiting, or fevers. Sugar at home was 213 this AM. Patient is tachycardic at 133 in triage. All other VSS Will plan for labs, EKG, chest xray, CT abdomen. Will to go to the main ER as soon as a bed is available. <ENEDELIA Jose - Last Filed: 04/21/22 11:51> Medical Decision Making Medical Decision Making MDM Narrative: -patient in DKA, receiving fluids, insulin, bicarb -we as receive a phone call from [facility], patient may have a perforated ulcer. We have contacted surgery, call back pending. However, patient does not have an acute abdomen. -patient states that he has no history of peptic ulcer disease, gastritis, does not use NSAIDs other than baby aspirin daily for 1 year, denies history of GI bleed -patient was evaluated at bedside by Dr. Santa from surgery, unlikely to be a perforated ulcer. However, we will keep the patient NPO -I also discussed the patient with Dr. Alan, patient being admitted to the ICU. <Ruth Ann Marcano MD - Last Filed: 04/21/22 14:36> Differential Diagnosis Differential Diagnoses: The differential diagnosis associated with the presentation includes (DKA, pancreatitis, perforated duodenal ulcer) <Ruth Ann Marcano MD - Last Filed: 04/21/22 14:36> Admission/Observation Consideration of admission/observation: Escalation of care including admission/observation considered <Ruth Ann Marcano MD - Last Filed: 04/21/22 14:36> Consult Healthcare Provider Management of the patient was discussed with: Regulator Operator <Ruth Ann Marcano MD - Last Filed: 04/21/22 14:36> Lab Data MDM Lab Attestation statement: I reviewed the patient's lab results. <Ruth Ann Marcano MD - Last Filed: 04/21/22 14:36> Result Diagrams: 04/21/22 12:01 04/21/22 12:01 <ENEDELIA Jose - Last Filed: 04/21/22 11:51> Labs: Lab Results 04/21/22 04/21/22 04/21/22 Range/Units 12:00 12:01 12:01 WBC 14.4 H (4.8-10.8) X10*3/uL RBC 5.77 (4.60-5.80) X10*6/uL Hgb 16.0 (14.0-18.0) g/dl Hct 49.6 (42.0-52.0) % MCV 86.0 (80.0-98.0) fL MCH 27.7 (27.0-33.0) pg MCHC 32.3 (31.0-36.0) g/dl RDW 15.1 (11.0-16.0) % Plt Count 295 D (160-400) X10*3/uL MPV 11.7 (9.4-12.4) fL Immature Gran % (Auto) 1.5 H (0.0-0.4) % Neut % (Auto) 77.8 H (45-73) % Lymph % (Auto) 12.3 L (20-40) % [place] % (Auto) 7.4 (2-11) % Eos % (Auto) 0.5 (0-4) % Baso % (Auto) 0.5 (0-2) % Lymph # (Auto) 1.8 (1.2-4.9) X10*3/uL [place] # (Auto) 1.1 (0.1-1.2) X10*3/uL Eos # (Auto) 0.1 (0.0-0.4) X10*3/uL Baso # (Auto) 0.1 (0.0-0.2) X10*3/uL Abs Immat Gran (auto) 0.21 H (0.00-0.03) X10*3/uL Absolute Neuts (auto) 11.2 H (2.0-8.3) x10*3/uL Absolute Nucleated RBC 0.000 (0.0-0.012) X10*3/uL Nucleated RBC % (auto) 0.0 (0.0-0.2) /100WBC VBG pH (7.32-7.43) VBG pCO2 mmHg VBG pO2 mmHg VBG HCO3 (22-26) mmol/L VBG O2 Saturation % VBG Base Excess mmol/L Sodium 132 L (135-145) mmol/L Potassium 5.5 H (3.3-5.1) mmol/L Chloride 101 (96-108) mmol/L Carbon Dioxide 6 L* D (22-29) mmol/L Anion Gap 31 H (12-20) BUN 28 H (9-16) mg/dL Creatinine 2.03 H (0.5-1.4) mg/dL Estim Creat Clear Calc 56.5 Estimated GFR 37 POC Glucose (60-115) mg/dL Random Glucose 253 H (60-115) mg/dL Estimat Average Glucose Hemoglobin A1c % % Lactic Acid (0.5-2.0) mmol/L Calcium 9.3 (8.4-10.2) mg/dL Magnesium 2.3 (1.6-2.6) mg/dL Total Bilirubin 0.4 (0.0-1.0) mg/dL Direct Bilirubin < 0.2 (0.0-0.5) mg/dL AST 28 (5-37) U/L ALT 29 (0-40) U/L Alkaline Phosphatase 86 (39-117) U/L Troponin I High Sens < 3.5 (<3.5-35.0) ng/L Total Protein 7.8 (6.5-8.0) g/dL Albumin 3.7 (3.5-5.0) g/dL Triglycerides 894 mg/dL Lipase 505 H (8-78) U/L Urine Color Urine Appearance Urine pH (5.0-9.0) Ur Specific [place] (1.005-1.025) Urine Protein (Neg-Trace) mg/dL Urine Glucose (UA) (Negative) mg/dL Urine Ketones (Negative) mg/dL Urine Blood (Negative) Urine Nitrite (Negative) Ur Leukocyte Esterase (Negative) Ethyl Alcohol < 10 mg/dL Acetone, Qual (Negative) COVID-19 (DEYSI) (Negative) COVID-19 Clin Com 04/21/22 04/21/22 04/21/22 Range/Units 12:01 12:01 12:01 WBC (4.8-10.8) X10*3/uL RBC (4.60-5.80) X10*6/uL Hgb (14.0-18.0) g/dl Hct (42.0-52.0) % MCV (80.0-98.0) fL MCH (27.0-33.0) pg MCHC (31.0-36.0) g/dl RDW (11.0-16.0) % Plt Count (160-400) X10*3/uL MPV (9.4-12.4) fL Immature Gran % (Auto) (0.0-0.4) % Neut % (Auto) (45-73) % Lymph % (Auto) (20-40) % [place] % (Auto) (2-11) % Eos % (Auto) (0-4) % Baso % (Auto) (0-2) % Lymph # (Auto) (1.2-4.9) X10*3/uL [place] # (Auto) (0.1-1.2) X10*3/uL Eos # (Auto) (0.0-0.4) X10*3/uL Baso # (Auto) (0.0-0.2) X10*3/uL Abs Immat Gran (auto) (0.00-0.03) X10*3/uL Absolute Neuts (auto) (2.0-8.3) x10*3/uL Absolute Nucleated RBC (0.0-0.012) X10*3/uL Nucleated RBC % (auto) (0.0-0.2) /100WBC VBG pH (7.32-7.43) VBG pCO2 mmHg VBG pO2 mmHg VBG HCO3 (22-26) mmol/L VBG O2 Saturation % VBG Base Excess mmol/L Sodium (135-145) mmol/L Potassium (3.3-5.1) mmol/L Chloride (96-108) mmol/L Carbon Dioxide (22-29) mmol/L Anion Gap (12-20) BUN (9-16) mg/dL Creatinine (0.5-1.4) mg/dL Estim Creat Clear Calc Estimated GFR POC Glucose (60-115) mg/dL Random Glucose (60-115) mg/dL Estimat Average Glucose TNP Hemoglobin A1c % > 14.0 % Lactic Acid (0.5-2.0) mmol/L Calcium (8.4-10.2) mg/dL Magnesium (1.6-2.6) mg/dL Total Bilirubin (0.0-1.0) mg/dL Direct Bilirubin (0.0-0.5) mg/dL AST (5-37) U/L ALT (0-40) U/L Alkaline Phosphatase (39-117) U/L Troponin I High Sens (<3.5-35.0) ng/L Total Protein (6.5-8.0) g/dL Albumin (3.5-5.0) g/dL Triglycerides Cancelled mg/dL Lipase (8-78) U/L Urine Color Urine Appearance Urine pH (5.0-9.0) Ur Specific [place] (1.005-1.025) Urine Protein (Neg-Trace) mg/dL Urine Glucose (UA) (Negative) mg/dL Urine Ketones (Negative) mg/dL Urine Blood (Negative) Urine Nitrite (Negative) Ur Leukocyte Esterase (Negative) Ethyl Alcohol Cancelled mg/dL Acetone, Qual Small H (Negative) COVID-19 (DEYSI) Negative (Negative) COVID-19 Clin Com See Note 04/21/22 04/21/22 04/21/22 Range/Units 12:07 12:50 13:30 WBC (4.8-10.8) X10*3/uL RBC (4.60-5.80) X10*6/uL Hgb (14.0-18.0) g/dl Hct (42.0-52.0) % MCV (80.0-98.0) fL MCH (27.0-33.0) pg MCHC (31.0-36.0) g/dl RDW (11.0-16.0) % Plt Count (160-400) X10*3/uL MPV (9.4-12.4) fL Immature Gran % (Auto) (0.0-0.4) % Neut % (Auto) (45-73) % Lymph % (Auto) (20-40) % [place] % (Auto) (2-11) % Eos % (Auto) (0-4) % Baso % (Auto) (0-2) % Lymph # (Auto) (1.2-4.9) X10*3/uL [place] # (Auto) (0.1-1.2) X10*3/uL Eos # (Auto) (0.0-0.4) X10*3/uL Baso # (Auto) (0.0-0.2) X10*3/uL Abs Immat Gran (auto) (0.00-0.03) X10*3/uL Absolute Neuts (auto) (2.0-8.3) x10*3/uL Absolute Nucleated RBC (0.0-0.012) X10*3/uL Nucleated RBC % (auto) (0.0-0.2) /100WBC VBG pH 7.13 L* (7.32-7.43) VBG pCO2 21 mmHg VBG pO2 40 mmHg VBG HCO3 7 L (22-26) mmol/L VBG O2 Saturation 50.0 % VBG Base Excess -19.7 mmol/L Sodium (135-145) mmol/L Potassium (3.3-5.1) mmol/L Chloride (96-108) mmol/L Carbon Dioxide (22-29) mmol/L Anion Gap (12-20) BUN (9-16) mg/dL Creatinine (0.5-1.4) mg/dL Estim Creat Clear Calc Estimated GFR POC Glucose 235 H (60-115) mg/dL Random Glucose (60-115) mg/dL Estimat Average Glucose Hemoglobin A1c % % Lactic Acid 1.3 (0.5-2.0) mmol/L Calcium (8.4-10.2) mg/dL Magnesium (1.6-2.6) mg/dL Total Bilirubin (0.0-1.0) mg/dL Direct Bilirubin (0.0-0.5) mg/dL AST (5-37) U/L ALT (0-40) U/L Alkaline Phosphatase (39-117) U/L Troponin I High Sens (<3.5-35.0) ng/L Total Protein (6.5-8.0) g/dL Albumin (3.5-5.0) g/dL Triglycerides mg/dL Lipase (8-78) U/L Urine Color Urine Appearance Urine pH (5.0-9.0) Ur Specific [place] (1.005-1.025) Urine Protein (Neg-Trace) mg/dL Urine Glucose (UA) (Negative) mg/dL Urine Ketones (Negative) mg/dL Urine Blood (Negative) Urine Nitrite (Negative) Ur Leukocyte Esterase (Negative) Ethyl Alcohol mg/dL Acetone, Qual (Negative) COVID-19 (DEYSI) (Negative) COVID-19 Clin Com 04/21/22 Range/Units 14:04 WBC (4.8-10.8) X10*3/uL RBC (4.60-5.80) X10*6/uL Hgb (14.0-18.0) g/dl Hct (42.0-52.0) % MCV (80.0-98.0) fL MCH (27.0-33.0) pg MCHC (31.0-36.0) g/dl RDW (11.0-16.0) % Plt Count (160-400) X10*3/uL MPV (9.4-12.4) fL Immature Gran % (Auto) (0.0-0.4) % Neut % (Auto) (45-73) % Lymph % (Auto) (20-40) % [place] % (Auto) (2-11) % Eos % (Auto) (0-4) % Baso % (Auto) (0-2) % Lymph # (Auto) (1.2-4.9) X10*3/uL [place] # (Auto) (0.1-1.2) X10*3/uL Eos # (Auto) (0.0-0.4) X10*3/uL Baso # (Auto) (0.0-0.2) X10*3/uL Abs Immat Gran (auto) (0.00-0.03) X10*3/uL Absolute Neuts (auto) (2.0-8.3) x10*3/uL Absolute Nucleated RBC (0.0-0.012) X10*3/uL Nucleated RBC % (auto) (0.0-0.2) /100WBC VBG pH (7.32-7.43) VBG pCO2 mmHg VBG pO2 mmHg VBG HCO3 (22-26) mmol/L VBG O2 Saturation % VBG Base Excess mmol/L Sodium (135-145) mmol/L Potassium (3.3-5.1) mmol/L Chloride (96-108) mmol/L Carbon Dioxide (22-29) mmol/L Anion Gap (12-20) BUN (9-16) mg/dL Creatinine (0.5-1.4) mg/dL Estim Creat Clear Calc Estimated GFR POC Glucose (60-115) mg/dL Random Glucose (60-115) mg/dL Estimat Average Glucose Hemoglobin A1c % % Lactic Acid (0.5-2.0) mmol/L Calcium (8.4-10.2) mg/dL Magnesium (1.6-2.6) mg/dL Total Bilirubin (0.0-1.0) mg/dL Direct Bilirubin (0.0-0.5) mg/dL AST (5-37) U/L ALT (0-40) U/L Alkaline Phosphatase (39-117) U/L Troponin I High Sens (<3.5-35.0) ng/L Total Protein (6.5-8.0) g/dL Albumin (3.5-5.0) g/dL Triglycerides mg/dL Lipase (8-78) U/L Urine Color Yellow Urine Appearance Cloudy Urine pH 5.0 (5.0-9.0) Ur Specific [place] >= 1.030 H (1.005-1.025) Urine Protein 30 (1+) H (Neg-Trace) mg/dL Urine Glucose (UA) >=1000 H (Negative) mg/dL Urine Ketones 80 (Negative) mg/dL Urine Blood Trace H (Negative) Urine Nitrite Negative (Negative) Ur Leukocyte Esterase Negative (Negative) Ethyl Alcohol mg/dL Acetone, Qual (Negative) COVID-19 (DEYSI) (Negative) COVID-19 Clin Com <ENEDELIA Jose - Last Filed: 04/21/22 11:51> Lab Results 04/21/22 04/21/22 04/21/22 Range/Units 12:00 12:01 12:01 WBC 14.4 H (4.8-10.8) X10*3/uL RBC 5.77 (4.60-5.80) X10*6/uL Hgb 16.0 (14.0-18.0) g/dl Hct 49.6 (42.0-52.0) % MCV 86.0 (80.0-98.0) fL MCH 27.7 (27.0-33.0) pg MCHC 32.3 (31.0-36.0) g/dl RDW 15.1 (11.0-16.0) % Plt Count 295 D (160-400) X10*3/uL MPV 11.7 (9.4-12.4) fL Immature Gran % (Auto) 1.5 H (0.0-0.4) % Neut % (Auto) 77.8 H (45-73) % Lymph % (Auto) 12.3 L (20-40) % [place] % (Auto) 7.4 (2-11) % Eos % (Auto) 0.5 (0-4) % Baso % (Auto) 0.5 (0-2) % Lymph # (Auto) 1.8 (1.2-4.9) X10*3/uL [place] # (Auto) 1.1 (0.1-1.2) X10*3/uL Eos # (Auto) 0.1 (0.0-0.4) X10*3/uL Baso # (Auto) 0.1 (0.0-0.2) X10*3/uL Abs Immat Gran (auto) 0.21 H (0.00-0.03) X10*3/uL Absolute Neuts (auto) 11.2 H (2.0-8.3) x10*3/uL Absolute Nucleated RBC 0.000 (0.0-0.012) X10*3/uL Nucleated RBC % (auto) 0.0 (0.0-0.2) /100WBC VBG pH (7.32-7.43) VBG pCO2 mmHg VBG pO2 mmHg VBG HCO3 (22-26) mmol/L VBG O2 Saturation % VBG Base Excess mmol/L Sodium 132 L (135-145) mmol/L Potassium 5.5 H (3.3-5.1) mmol/L Chloride 101 (96-108) mmol/L Carbon Dioxide 6 L* D (22-29) mmol/L Anion Gap 31 H (12-20) BUN 28 H (9-16) mg/dL Creatinine 2.03 H (0.5-1.4) mg/dL Estim Creat Clear Calc 56.5 Estimated GFR 37 POC Glucose (60-115) mg/dL Random Glucose 253 H (60-115) mg/dL Estimat Average Glucose Hemoglobin A1c % % Lactic Acid (0.5-2.0) mmol/L Calcium 9.3 (8.4-10.2) mg/dL Magnesium 2.3 (1.6-2.6) mg/dL Total Bilirubin 0.4 (0.0-1.0) mg/dL Direct Bilirubin < 0.2 (0.0-0.5) mg/dL AST 28 (5-37) U/L ALT 29 (0-40) U/L Alkaline Phosphatase 86 (39-117) U/L Troponin I High Sens < 3.5 (<3.5-35.0) ng/L Total Protein 7.8 (6.5-8.0) g/dL Albumin 3.7 (3.5-5.0) g/dL Triglycerides 894 mg/dL Lipase 505 H (8-78) U/L Urine Color Urine Appearance Urine pH (5.0-9.0) Ur Specific [place] (1.005-1.025) Urine Protein (Neg-Trace) mg/dL Urine Glucose (UA) (Negative) mg/dL Urine Ketones (Negative) mg/dL Urine Blood (Negative) Urine Nitrite (Negative) Ur Leukocyte Esterase (Negative) Ethyl Alcohol < 10 mg/dL Acetone, Qual (Negative) COVID-19 (DEYSI) (Negative) COVID-19 Clin Com 04/21/22 04/21/22 04/21/22 Range/Units 12:01 12:01 12:01 WBC (4.8-10.8) X10*3/uL RBC (4.60-5.80) X10*6/uL Hgb (14.0-18.0) g/dl Hct (42.0-52.0) % MCV (80.0-98.0) fL MCH (27.0-33.0) pg MCHC (31.0-36.0) g/dl RDW (11.0-16.0) % Plt Count (160-400) X10*3/uL MPV (9.4-12.4) fL Immature Gran % (Auto) (0.0-0.4) % Neut % (Auto) (45-73) % Lymph % (Auto) (20-40) % [place] % (Auto) (2-11) % Eos % (Auto) (0-4) % Baso % (Auto) (0-2) % Lymph # (Auto) (1.2-4.9) X10*3/uL [place] # (Auto) (0.1-1.2) X10*3/uL Eos # (Auto) (0.0-0.4) X10*3/uL Baso # (Auto) (0.0-0.2) X10*3/uL Abs Immat Gran (auto) (0.00-0.03) X10*3/uL Absolute Neuts (auto) (2.0-8.3) x10*3/uL Absolute Nucleated RBC (0.0-0.012) X10*3/uL Nucleated RBC % (auto) (0.0-0.2) /100WBC VBG pH (7.32-7.43) VBG pCO2 mmHg VBG pO2 mmHg VBG HCO3 (22-26) mmol/L VBG O2 Saturation % VBG Base Excess mmol/L Sodium (135-145) mmol/L Potassium (3.3-5.1) mmol/L Chloride (96-108) mmol/L Carbon Dioxide (22-29) mmol/L Anion Gap (12-20) BUN (9-16) mg/dL Creatinine (0.5-1.4) mg/dL Estim Creat Clear Calc Estimated GFR POC Glucose (60-115) mg/dL Random Glucose (60-115) mg/dL Estimat Average Glucose TNP Hemoglobin A1c % > 14.0 % Lactic Acid (0.5-2.0) mmol/L Calcium (8.4-10.2) mg/dL Magnesium (1.6-2.6) mg/dL Total Bilirubin (0.0-1.0) mg/dL Direct Bilirubin (0.0-0.5) mg/dL AST (5-37) U/L ALT (0-40) U/L Alkaline Phosphatase (39-117) U/L Troponin I High Sens (<3.5-35.0) ng/L Total Protein (6.5-8.0) g/dL Albumin (3.5-5.0) g/dL Triglycerides Cancelled mg/dL Lipase (8-78) U/L Urine Color Urine Appearance Urine pH (5.0-9.0) Ur Specific [place] (1.005-1.025) Urine Protein (Neg-Trace) mg/dL Urine Glucose (UA) (Negative) mg/dL Urine Ketones (Negative) mg/dL Urine Blood (Negative) Urine Nitrite (Negative) Ur Leukocyte Esterase (Negative) Ethyl Alcohol Cancelled mg/dL Acetone, Qual Small H (Negative) COVID-19 (DEYSI) Negative (Negative) COVID-19 Clin Com See Note 04/21/22 04/21/22 04/21/22 Range/Units 12:07 12:50 13:30 WBC (4.8-10.8) X10*3/uL RBC (4.60-5.80) X10*6/uL Hgb (14.0-18.0) g/dl Hct (42.0-52.0) % MCV (80.0-98.0) fL MCH (27.0-33.0) pg MCHC (31.0-36.0) g/dl RDW (11.0-16.0) % Plt Count (160-400) X10*3/uL MPV (9.4-12.4) fL Immature Gran % (Auto) (0.0-0.4) % Neut % (Auto) (45-73) % Lymph % (Auto) (20-40) % [place] % (Auto) (2-11) % Eos % (Auto) (0-4) % Baso % (Auto) (0-2) % Lymph # (Auto) (1.2-4.9) X10*3/uL [place] # (Auto) (0.1-1.2) X10*3/uL Eos # (Auto) (0.0-0.4) X10*3/uL Baso # (Auto) (0.0-0.2) X10*3/uL Abs Immat Gran (auto) (0.00-0.03) X10*3/uL Absolute Neuts (auto) (2.0-8.3) x10*3/uL Absolute Nucleated RBC (0.0-0.012) X10*3/uL Nucleated RBC % (auto) (0.0-0.2) /100WBC VBG pH 7.13 L* (7.32-7.43) VBG pCO2 21 mmHg VBG pO2 40 mmHg VBG HCO3 7 L (22-26) mmol/L VBG O2 Saturation 50.0 % VBG Base Excess -19.7 mmol/L Sodium (135-145) mmol/L Potassium (3.3-5.1) mmol/L Chloride (96-108) mmol/L Carbon Dioxide (22-29) mmol/L Anion Gap (12-20) BUN (9-16) mg/dL Creatinine (0.5-1.4) mg/dL Estim Creat Clear Calc Estimated GFR POC Glucose 235 H (60-115) mg/dL Random Glucose (60-115) mg/dL Estimat Average Glucose Hemoglobin A1c % % Lactic Acid 1.3 (0.5-2.0) mmol/L Calcium (8.4-10.2) mg/dL Magnesium (1.6-2.6) mg/dL Total Bilirubin (0.0-1.0) mg/dL Direct Bilirubin (0.0-0.5) mg/dL AST (5-37) U/L ALT (0-40) U/L Alkaline Phosphatase (39-117) U/L Troponin I High Sens (<3.5-35.0) ng/L Total Protein (6.5-8.0) g/dL Albumin (3.5-5.0) g/dL Triglycerides mg/dL Lipase (8-78) U/L Urine Color Urine Appearance Urine pH (5.0-9.0) Ur Specific [place] (1.005-1.025) Urine Protein (Neg-Trace) mg/dL Urine Glucose (UA) (Negative) mg/dL Urine Ketones (Negative) mg/dL Urine Blood (Negative) Urine Nitrite (Negative) Ur Leukocyte Esterase (Negative) Ethyl Alcohol mg/dL Acetone, Qual (Negative) COVID-19 (DEYSI) (Negative) COVID-19 Clin Com 04/21/22 Range/Units 14:04 WBC (4.8-10.8) X10*3/uL RBC (4.60-5.80) X10*6/uL Hgb (14.0-18.0) g/dl Hct (42.0-52.0) % MCV (80.0-98.0) fL MCH (27.0-33.0) pg MCHC (31.0-36.0) g/dl RDW (11.0-16.0) % Plt Count (160-400) X10*3/uL MPV (9.4-12.4) fL Immature Gran % (Auto) (0.0-0.4) % Neut % (Auto) (45-73) % Lymph % (Auto) (20-40) % [place] % (Auto) (2-11) % Eos % (Auto) (0-4) % Baso % (Auto) (0-2) % Lymph # (Auto) (1.2-4.9) X10*3/uL [place] # (Auto) (0.1-1.2) X10*3/uL Eos # (Auto) (0.0-0.4) X10*3/uL Baso # (Auto) (0.0-0.2) X10*3/uL Abs Immat Gran (auto) (0.00-0.03) X10*3/uL Absolute Neuts (auto) (2.0-8.3) x10*3/uL Absolute Nucleated RBC (0.0-0.012) X10*3/uL Nucleated RBC % (auto) (0.0-0.2) /100WBC VBG pH (7.32-7.43) VBG pCO2 mmHg VBG pO2 mmHg VBG HCO3 (22-26) mmol/L VBG O2 Saturation % VBG Base Excess mmol/L Sodium (135-145) mmol/L Potassium (3.3-5.1) mmol/L Chloride (96-108) mmol/L Carbon Dioxide (22-29) mmol/L Anion Gap (12-20) BUN (9-16) mg/dL Creatinine (0.5-1.4) mg/dL Estim Creat Clear Calc Estimated GFR POC Glucose (60-115) mg/dL Random Glucose (60-115) mg/dL Estimat Average Glucose Hemoglobin A1c % % Lactic Acid (0.5-2.0) mmol/L Calcium (8.4-10.2) mg/dL Magnesium (1.6-2.6) mg/dL Total Bilirubin (0.0-1.0) mg/dL Direct Bilirubin (0.0-0.5) mg/dL AST (5-37) U/L ALT (0-40) U/L Alkaline Phosphatase (39-117) U/L Troponin I High Sens (<3.5-35.0) ng/L Total Protein (6.5-8.0) g/dL Albumin (3.5-5.0) g/dL Triglycerides mg/dL Lipase (8-78) U/L Urine Color Yellow Urine Appearance Cloudy Urine pH 5.0 (5.0-9.0) Ur Specific [place] >= 1.030 H (1.005-1.025) Urine Protein 30 (1+) H (Neg-Trace) mg/dL Urine Glucose (UA) >=1000 H (Negative) mg/dL Urine Ketones 80 (Negative) mg/dL Urine Blood Trace H (Negative) Urine Nitrite Negative (Negative) Ur Leukocyte Esterase Negative (Negative) Ethyl Alcohol mg/dL Acetone, Qual (Negative) COVID-19 (DEYSI) (Negative) COVID-19 Clin Com <Ruth Ann Marcano MD - Last Filed: 04/21/22 14:36> Independent Interpretation I performed an independent interpretation of an: CT Scan (My interpretation of CT scan of the abdomen: I do not see any free air) <Ruth Ann Marcano MD - Last Filed: 04/21/22 14:36> Radiology Impression Discussion of test interpretation with radiology: I have reviewed the radiologist's reading. <Ruth Ann Marcano MD - Last Filed: 04/21/22 14:36> Radiologist Impression: FINDINGS: LUNG BASES: The visualized lung bases are unremarkable.? LIVER, GALLBLADDER, AND BILIARY TREE: The liver is markedly enlarged at 22.3 cm with markedly decreased attenuation consistent with hepatic steatosis. No focal hepatic lesion or biliary ductal dilatation is present. The gallbladder is unremarkable with no evidence of radiopaque gallstones, gallbladder wall thickening, or obvious pericholecystic inflammatory changes.? PANCREAS: The majority of the pancreas appears normal. In the region of the uncinate process/pancreatic head there is a inflammatory process-see below. I believe the pancreas is secondarily involved and that this is not primarily related to pancreatitis.? SPLEEN: Unremarkable.? ADRENAL GLANDS: Unremarkable.? KIDNEYS AND URETERS: The kidneys are normal in size, shape, and attenuation. No hydronephrosis, hydroureter, or calculi seen. Benign cortical 3.5 cm Bosniak class I left renal cysts needs no additional imaging or follow-up. No perinephric stranding. ? BLADDER: Unremarkable.? GASTROINTESTINAL TRACT: There is a severe inflammatory process centered around the second and third portion of the duodenum as well as the pancreatic head. A small fluid collection can be seen tracking from the region of the duodenal bulb (2:36) along the anterior pararenal fascia measuring 10.4 x 1.8 x 2.8 cm.? There is marked thickening of the third portion of the duodenum as well as the anterior pararenal fascia on the right. Findings are highly suspicious for a ruptured duodenal ulcer. There is thickening of the distal descending colon which is probably a secondary reactive finding. The remainder of the colon appears unremarkable aside from colonic diverticula without diverticulitis. The appendix is normal. ABDOMINAL WALL: No significant hernia is appreciated.? LYMPH NODES: No retroperitoneal lymphadenopathy. VASCULAR: Unremarkable. PELVIC VISCERA: The prostate and seminal vesicles are unremarkable.? OSSEOUS STRUCTURES: Unremarkable.? CT/CT abdomen pelvis wo IV con IMPRESSION: 1.? Severe inflammatory process centered around the second and third portion of the duodenum as well as the pancreatic head. Findings are highly suspicious for a ruptured duodenal ulcer. Inflammatory changes around the pancreatic head are probably secondary as are the inflammatory changes around the distal descending colon 2.? Markedly enlarged fatty liver. ? <Ruth Ann Marcano MD - Last Filed: 04/21/22 14:36> Medications Administered Generic Name Dose Route Start Last Admin Trade Name Freq PRN Reason Stop Dose Admin Sodium Bicarbonate 150 meq/ 1,000 mls @ 100 mls/hr 04/21/22 13:30 04/21/22 14:09 Dextrose IV 100 mls/hr .Q10H KLAUDIA Administration Insulin Human Regular 100 unit in 100 mls @ 9 mls/hr 04/21/22 13:30 04/21/22 13:42 Myxredlin IVCONT 9 unit/hr .Q11H7M KLAUDIA 9 mls/hr Administration Protocol 9 UNIT/HR Dextrose/Lactated Ringer's 1,000 mls @ 100 mls/hr 04/21/22 14:15 04/21/22 14:23 D5lr IVCONT 100 mls/hr .Q10H KLAUDIA Administration Discontinued Medications Generic Name Dose Route Start Last Admin Trade Name Freq PRN Reason Stop Dose Admin Sodium Chloride 1,000 mls @ 999 mls/hr 04/21/22 12:30 04/21/22 13:30 Ns IVCONT 04/21/22 13:30 Infused .Q1H1M KLAUDIA Infusion Lactated Ringer's 1,000 mls @ 999 mls/hr 04/21/22 12:30 04/21/22 14:28 Lr IV 04/21/22 13:30 Infused .Q1H1M KLAUDIA Infusion Piperacillin Sod/Tazobactam 50 mls @ 100 mls/hr 04/21/22 13:08 04/21/22 13:56 Sod 3.375 gm/ Sodium Chloride IV 04/21/22 13:37 Infused ONCE ONE Infusion Dextrose 1,000 mls @ 125 mls/hr 04/21/22 13:30 04/21/22 13:41 D5w IVCONT Not Given .Q8H KLAUDIA Dextrose/Sodium Chloride 1,000 mls @ 150 mls/hr 04/21/22 13:30 04/21/22 14:28 D51/2ns IVCONT Infused .Q6H40M KLAUDIA Infusion Morphine Sulfate 2 mg 04/21/22 13:29 04/21/22 13:41 Morphine Sulfate 2 Mg/Ml Cartridge IVPUSH 04/21/22 13:30 2 mg ONCE ONE Administration Protocol Sodium Bicarbonate 50 meq 04/21/22 13:17 04/21/22 13:29 Sodium Bicarbonate 8.4% 50 Meq/50 Ml Syringe IVPUSH 04/21/22 13:18 50 meq ONCE ONE Administration <ENEDELIA Jose - Last Filed: 04/21/22 11:51> Medications Administered Generic Name Dose Route Start Last Admin Trade Name Freq PRN Reason Stop Dose Admin Sodium Bicarbonate 150 meq/ 1,000 mls @ 100 mls/hr 04/21/22 13:30 04/21/22 14:09 Dextrose IV 100 mls/hr .Q10H KLAUDIA Administration Insulin Human Regular 100 unit in 100 mls @ 9 mls/hr 04/21/22 13:30 04/21/22 13:42 Myxredlin IVCONT 9 unit/hr .Q11H7M KLAUDIA 9 mls/hr Administration Protocol 9 UNIT/HR Dextrose/Lactated Ringer's 1,000 mls @ 100 mls/hr 04/21/22 14:15 04/21/22 14:23 D5lr IVCONT 100 mls/hr .Q10H KLAUDIA Administration Discontinued Medications Generic Name Dose Route Start Last Admin Trade Name Freq PRN Reason Stop Dose Admin Sodium Chloride 1,000 mls @ 999 mls/hr 04/21/22 12:30 04/21/22 13:30 Ns IVCONT 04/21/22 13:30 Infused .Q1H1M KLAUDIA Infusion Lactated Ringer's 1,000 mls @ 999 mls/hr 04/21/22 12:30 04/21/22 14:28 Lr IV 04/21/22 13:30 Infused .Q1H1M KLAUDIA Infusion Piperacillin Sod/Tazobactam 50 mls @ 100 mls/hr 04/21/22 13:08 04/21/22 13:56 Sod 3.375 gm/ Sodium Chloride IV 04/21/22 13:37 Infused ONCE ONE Infusion Dextrose 1,000 mls @ 125 mls/hr 04/21/22 13:30 04/21/22 13:41 D5w IVCONT Not Given .Q8H KLAUDIA Dextrose/Sodium Chloride 1,000 mls @ 150 mls/hr 04/21/22 13:30 04/21/22 14:28 D51/2ns IVCONT Infused .Q6H40M KLAUDIA Infusion Morphine Sulfate 2 mg 04/21/22 13:29 04/21/22 13:41 Morphine Sulfate 2 Mg/Ml Cartridge IVPUSH 04/21/22 13:30 2 mg ONCE ONE Administration Protocol Sodium Bicarbonate 50 meq 04/21/22 13:17 04/21/22 13:29 Sodium Bicarbonate 8.4% 50 Meq/50 Ml Syringe IVPUSH 04/21/22 13:18 50 meq ONCE ONE Administration <Ruth Ann Marcano MD - Last Filed: 04/21/22 14:36> Critical Care Time Critical Care Time Critical Care Time: Yes <Ruth Ann Marcano MD - Last Filed: 04/21/22 14:36> Total Critical Care Time: 60 <Ruth Ann Marcano MD - Last Filed: 04/21/22 14:36> Attestation: I have personally provided critical care time. Time includes review of lab data, radiology results, discussion with consultants, and monitoring for potential decompensation. Intervention performed as documented. <Ruth Ann Marcano MD - Last Filed: 04/21/22 14:36> Discharge Plan Discharge Clinical Impression: DKA (diabetic ketoacidosis), Pancreatitis <ENEDELIA Jose - Last Filed: 04/21/22 11:51> Patient Disposition: Admitted As Inpatient <ENEDELIA Jose - Last Filed: 04/21/22 11:51>
--- NOTE | 2022-04-21 11:44 | ECG_ITS ---
Test Reason : SOB/DYSPNEA Blood Pressure : / mmHG Vent. Rate : 134 BPM Atrial Rate : 134 BPM P-R Int : 136 ms QRS Dur : 082 ms QT Int : 284 ms P-R-T Axes : 052 011 049 degrees QTc Int : 424 ms Artifact in tracing Sinus tachycardia Borderline ECG When compared with ECG of 08-JUL-2019 15:47, No significant changes seen Referred By: Lizette Roberts Electronically Signed By:BILLY WELLER
[2022-04-21 12:11] LABS: MANUAL DIFF FLAG NO
--- NOTE | 2022-04-21 12:11 | PC.NURSE ---
36 y/o M pw abdominal pain, tachycardia in 130s, recently dx with diabetes. SOB. IV in place, pt in gown, on monitor, sent straight to CT
[2022-04-21 12:12] LABS: Venous Blood Gas Refer to POC result
[2022-04-21 12:15] LABS: Basophils Absolute Auto 0.1 X10*3/uL (0.0-0.2); Basophils Percent Auto 0.5 % (0-2); Eosinophils Absolute Auto 0.1 X10*3/uL (0.0-0.4); Eosinophils Percent Auto 0.5 % (0-4); Hematocrit 49.6 % (42.0-52.0); Imm Gran Abs Auto 0.21 X10*3/uL (0.00-0.03); Imm Gran Pct Auto 1.5 % (0.0-0.4); Lymphocytes Absolute Auto 1.8 X10*3/uL (1.2-4.9); Lymphocytes Percent Auto 12.3 % (20-40); Mean Corpuscular HGB Conc 32.3 g/dl (31.0-36.0); Mean Corpuscular Hemoglobin 27.7 pg (27.0-33.0); Mean Platelet Volume 11.7 fL (9.4-12.4); Monocytes Absolute Auto 1.1 X10*3/uL (0.1-1.2); Monocytes Percent Auto 7.4 % (2-11); Neutrophils Absolute Auto 11.2 x10*3/uL (2.0-8.3); Neutrophils Percent Auto 77.8 % (45-73); Platelet Count 295 X10*3/uL (160-400); Red Blood Count 5.77 X10*6/uL (4.60-5.80); Red Cell Distribution Width 15.1 % (11.0-16.0); White Blood Count 14.4 X10*3/uL (4.8-10.8)
[2022-04-21 12:21] LABS: VBG Base Excess -19.7 mmol/L; VBG HCO3 7 mmol/L (22-26); VBG pCO2 21 mmHg; VBG pH 7.13 (7.32-7.43); VBG pO2 40 mmHg
[2022-04-21 12:29] LABS: Acetone, serum QL Small (Negative)
[2022-04-21 12:30] LABS: COVID-19 Test Negative (Negative); IDNOW Serial# 9DB6401D
[2022-04-21] MEDS: 0.9 % Sodium Chloride 1,000 ML 999 ML IVCONT (12:40)
[2022-04-21 12:44] LABS: Lipase 505 U/L (8-78)
[2022-04-21 12:45] LABS: Hemoglobin A1c % > 14.0 %
[2022-04-21 12:54] LABS: Glucose, Whole Blood 235 mg/dL (60-115)
[2022-04-21 13:17] LABS: Alanine Aminotransferase 29 U/L (0-40); Albumin Level 3.7 g/dL (3.5-5.0); Alkaline Phosphatase 86 U/L (39-117); Anion Gap 31 (12-20); Aspartate Amino Transferase 28 U/L (5-37); Bilirubin Direct < 0.2 mg/dL (0.0-0.5); Bilirubin Total 0.4 mg/dL (0.0-1.0); Blood Urea Nitrogen 28 mg/dL (9-16); Calcium 9.3 mg/dL (8.4-10.2); Carbon Dioxide 6 mmol/L (22-29); Chloride 101 mmol/L (96-108); Creatinine Clr Calc Pharmacy 56.5; Estimated Glomerular Filt Rate 37; Glucose Random 253 mg/dL (60-115); Magnesium 2.3 mg/dL (1.6-2.6); Potassium 5.5 mmol/L (3.3-5.1); Sodium 132 mmol/L (135-145); Total Protein 7.8 g/dL (6.5-8.0)
[2022-04-21] MEDS: Sodium Bicarbonate 8.4% 50 MEQ/50 ML SYRINGE IVPUSH (13:29)
[2022-04-21] MEDS: Piperacillin Sodium/Tazobactam 3.375 GM in 0.9 % Sodium Chloride 50 ML IV ×2 (13:29→21:28)
[2022-04-21] MEDS: Lactated Ringers 1,000 ML 999 ML IV (13:29)
[2022-04-21] MEDS: Morphine Sulfate 2 MG/ML CARTRIDGE IVPUSH (13:41)
[2022-04-21] MEDS: Insulin Regular/NS 100 UNIT/100 ML PLAST..BAG 9 UNIT IVCONT (13:42)
[2022-04-21] MEDS: Dextrose 5 % and 0.45 % NaCl 1,000 ML 150 ML IVCONT (13:42)
[2022-04-21 13:57] LABS: Lactic Acid 1.3 mmol/L (0.5-2.0)
--- NOTE | 2022-04-21 13:58 | PM.CNGS ---
History of Present Illness Consult details Consult date: 04/21/22 Requesting physician: Ruth Ann Marcano Narrative: Patient is a 36-year-old male who presents here because of progressively worsening abdominal pain over 5 day period. Patient was recently seen in ER for new diagnosis of diabetes. His current abdominal complaints have been 5 days of of right lower quadrant with occasional epigastric and right sided abdominal pain. Denies any nausea vomiting. He has been having normal bowel habits. He has been eating relatively normally until this morning. Patient has no past surgical history of significance. Patient does take, among other medications , a daily aspirin. Patient states that he does not have a history of significant alcohol use. Because of progression of symptoms and of feeling unwell, he presents emergency department for evaluation. Chart was reviewed and patient evaluated. Patient is normotensive and tachycardic. He is afebrile. Along with his DKA, patient has a moderate leukocytosis as well as elevation of his lipase. Abdominal exam is most noteworthy for a moderately corpulent abdomen with mild right lateral and right lower quadrant tenderness. Patient has no evidence of an guarding, rebound, or rigidity. Patient was able to cough and move in the bed freely without any evidence of peritonitis. No abdominal scars seen or obvious hernias palpated. Rectal exam deferred Patient is currently on an insulin drip for his DKA CT scan findings were particularly reviewed which demonstrates no evidence of free air but inflammation involving duodenum and pancreas and descending colon. At present, the patient is undergoing resuscitative measures including correction of his DKA. Although the CT scan demonstrates inflammatory changes as noted above, the patient's clinical abdominal exam is not consistent with a perforated viscus. Part of the differential diagnosis for his abdominal complaints and CT scan findings is that perhaps the patient did have a small duodenal perforation and has self sealed the process and thus explaining his abdominal exam findings today of absence of peritonitis. This inflammatory process may also explain the irritation to his pancreas resulting in moderate pancreatitis. I discussed this with Dr. Marcano, the ER physician and and was told that because of the need of ICU admission for an insulin drip, with limited ICU beds available, there is a possibility that the patient may be transferred to outside facility for continued care. Assessment/plan is to continue restorative measures including serial exams and labs, and direct further therapy including surgical intervention based on the patient's clinical course. This plan was also reviewed with the patient. [facility] Past Medical History Medical History Abdominal pain Asthma Benign essential hypertension Diabetes mellitus Gout Obesity (BMI 30-39.9) Obstructive sleep apnea Pure hypercholesterolemia Renal calculi Family History Family History Father Hypertension Stroke Mother Hypertension Maternal Grandfather Myocardial infarction Surgical History Surgical History No pertinent past surgical history Social History Social History Housing: Apartment Alcohol intake: current Alcohol intake frequency: does not drink Patient Tobacco Use Status: Never used Tobacco Smoked in Last 30 Days: No Second Hand Smoke Exposure: Yes Use of substances other than those prescribed or required for medical reasons: No Advance Directives: No Advance Directives Information Provided: No Nutrition Risks: No Nutritional Risk service: No Current occupational status: employed Cognitive needs: No Hearing needs: No Vision needs: Yes Meds Allergies Allergy/AdvReac Type Severity Reaction Status Date / Time codeine [CODEINE] Allergy Unknown UNKNOWN Verified 04/21/22 11:47 Active Medications: Current Medications Dextrose (Dextrose 50 % 25 Gm/50 Ml Syringe) 25 gm IVPUSH Q30M PRN PRN Reason: Nursing Actions in Insulin Infusion Protocol Dextrose (Dextrose 50 % 25 Gm/50 Ml Syringe) 25 gm IVPUSH Q30M PRN PRN Reason: BG < 70 Sodium Bicarbonate 150 meq/ (Dextrose) 1,000 mls @ 100 mls/hr IV .Q10H KLAUDIA Dextrose (D5w) 1,000 mls @ 125 mls/hr IVCONT .Q8H KLAUDIA Last Admin: 04/21/22 13:41 Dose: Not Given Dextrose/Sodium Chloride (D51/2ns) 1,000 mls @ 150 mls/hr IVCONT .Q6H40M KLAUDIA Last Admin: 04/21/22 13:42 Dose: 150 mls/hr Insulin Human Regular (Myxredlin) 100 unit in 100 mls @ 9 mls/hr IVCONT .Q11H7M KLAUDIA; Protocol Last Admin: 04/21/22 13:42 Dose: 9 unit/hr, 9 mls/hr Home Medications Medication Instructions Recorded Confirmed Last Taken Type aspirin 81 mg tablet 81 mg PO DAILY 02/22/23 02/22/23 02/22/23 History Physical Exam Vital Signs: Vital Signs: Last Vital Signs Temp 97.0 F 04/21/22 11:40 Pulse 135 H 04/21/22 11:40 Resp 24 H 04/21/22 11:40 BP 114/65 04/21/22 11:40 Pulse Ox 99 04/21/22 11:40 O2 Del Method 04/21/22 11:40 BMI result Body Mass Index 31.4 Results Labs 04/21/22 12:01 04/21/22 12:01 Labs: Abnormal lab results 04/21/22 04/21/22 04/21/22 Range/Units 12:01 12:01 12:01 WBC 14.4 H (4.8-10.8) X10*3/uL Immature Gran % (Auto) 1.5 H (0.0-0.4) % Neut % (Auto) 77.8 H (45-73) % Lymph % (Auto) 12.3 L (20-40) % Abs Immat Gran (auto) 0.21 H (0.00-0.03) X10*3/uL Absolute Neuts (auto) 11.2 H (2.0-8.3) x10*3/uL VBG pH (7.32-7.43) VBG HCO3 (22-26) mmol/L Sodium 132 L (135-145) mmol/L Potassium 5.5 H (3.3-5.1) mmol/L Carbon Dioxide 6 L* D (22-29) mmol/L Anion Gap 31 H (12-20) BUN 28 H (9-16) mg/dL Creatinine 2.03 H (0.5-1.4) mg/dL POC Glucose (60-115) mg/dL Random Glucose 253 H (60-115) mg/dL Lipase 505 H (8-78) U/L Acetone, Qual Small H (Negative) 04/21/22 04/21/22 Range/Units 12:07 12:50 WBC (4.8-10.8) X10*3/uL Immature Gran % (Auto) (0.0-0.4) % Neut % (Auto) (45-73) % Lymph % (Auto) (20-40) % Abs Immat Gran (auto) (0.00-0.03) X10*3/uL Absolute Neuts (auto) (2.0-8.3) x10*3/uL VBG pH 7.13 L* (7.32-7.43) VBG HCO3 7 L (22-26) mmol/L Sodium (135-145) mmol/L Potassium (3.3-5.1) mmol/L Carbon Dioxide (22-29) mmol/L Anion Gap (12-20) BUN (9-16) mg/dL Creatinine (0.5-1.4) mg/dL POC Glucose 235 H (60-115) mg/dL Random Glucose (60-115) mg/dL Lipase (8-78) U/L Acetone, Qual (Negative) Short CBC 04/21/22 Range/Units 12:01 WBC 14.4 H (4.8-10.8) X10*3/uL Hgb 16.0 (14.0-18.0) g/dl Hct 49.6 (42.0-52.0) % Plt Count 295 D (160-400) X10*3/uL BMP 04/21/22 12:01 Sodium 132 L Potassium 5.5 H Chloride 101 Carbon Dioxide 6 L* D BUN 28 H Creatinine 2.03 H Calcium 9.3 Liver Function 04/21/22 Range/Units 12:01 Total Bilirubin 0.4 (0.0-1.0) mg/dL Direct Bilirubin < 0.2 (0.0-0.5) mg/dL AST 28 (5-37) U/L ALT 29 (0-40) U/L Alkaline Phosphatase 86 (39-117) U/L Albumin 3.7 (3.5-5.0) g/dL All other labs normal. Assessment and Plan (1) Abdominal pain: Qualifiers: Abdominal location: generalized Qualified Code(s): R10.84 - Generalized abdominal pain Status: Acute (2) Pancreatitis: Status: Acute Plan See HPI Time Spent With Patient Time: Total time managing care of this patient today __25__ minutes. Procedures Date of Service Date of Service: 04/21/22
[2022-04-21] MEDS: Sodium Bicarbonate 8.4% 150 MEQ in Dextrose 5 % 850 ML 100 MEQ IV (14:09)
[2022-04-21 14:11] LABS: Appearance Urine Cloudy; Color Urine Yellow; Glucose Urine UA >=1000 mg/dL (Negative); Leukocyte Esterase Urine Negative (Negative); Nitrite Urine Negative (Negative); Specific Gravity - Urine >= 1.030 (1.005-1.025); UMIC TRIGGER UACC YES; Urine Blood Trace (Negative); Urine Ketones 80 mg/dL (Negative); Urine Protein 30 (1+) mg/dL (Neg-Trace)
--- NOTE | 2022-04-21 14:12 | PC.NURSE ---
pt noted to be in dKA, insulin gtt started, bicarb gtt started, d51/2ns started. pt aox3, calm and cooperative in stretcher. surgery at bedside for ?ulcer perf. urine sent. all labs sent, IV abx given. meds for pain given
[2022-04-21 14:21] LABS: Ethanol < 10 mg/dL; Triglycerides 894 mg/dL
[2022-04-21] MEDS: Dextrose 5 % and Lactated Ring 1,000 ML 100 ML IVCONT (14:23)
[2022-04-21 14:26] LABS: Troponin-I High Sensitivity < 3.5 ng/L (<3.5-35.0)
--- NOTE | 2022-04-21 14:31 | PC.NURSE ---
20G IV in R wrist, 18G IV in L forearm, 18G IV in LAC
[2022-04-21 14:33] LABS: Bacteria Urine None Seen (None Seen); Granular Casts Urine Present; Other Crystals Urine Present; RBC Urine 0-2 /HPF (0-2); WBC Urine 0-5 /HPF (0-5)
--- NOTE | 2022-04-21 14:33 | PHA.MEDREC ---
Pharmacy Consult ? Medication Reconciliation Patient is not taking indomethacin . Recent directions for patient for metformin were confusing. Patient hasn't take med since Tuesday . (04/18/22) Pharmacy has completed the medication reconciliation.
--- NOTE | 2022-04-21 15:12 | PC.NURSE ---
repeat labs drawn and sent
[2022-04-21 15:27] LABS: VBG Base Excess -18.7 mmol/L; VBG HCO3 5 mmol/L (22-26); VBG pCO2 11 mmHg; VBG pH 7.25 (7.32-7.43); VBG pO2 137 mmHg
[2022-04-21 15:59] LABS: Alanine Aminotransferase 18 U/L (0-40); Albumin Level 2.5 g/dL (3.5-5.0); Alkaline Phosphatase 58 U/L (39-117); Anion Gap 22 (12-20); Aspartate Amino Transferase 17 U/L (5-37); Bilirubin Total 0.3 mg/dL (0.0-1.0); Blood Urea Nitrogen 24 mg/dL (9-16); Calcium 7.6 mg/dL (8.4-10.2); Carbon Dioxide 6 mmol/L (22-29); Chloride 107 mmol/L (96-108); Creatinine Clr Calc Pharmacy 82.6; Estimated Glomerular Filt Rate 57; Glucose Fasting 425 mg/dL (60-99); Potassium 3.7 mmol/L (3.3-5.1); Sodium 131 mmol/L (135-145); Total Protein 5.6 g/dL (6.5-8.0)
[2022-04-21 16:03] LABS: Glucose, Whole Blood 210 mg/dL (60-115)
--- NOTE | 2022-04-21 16:08 | PM.CCHP ---
History of Present Illness Date of Service: 04/21/22 Chief Complaint: Abdominal pain, pancreatitis, metabolic acidosis 36-year-old gentleman with recent diagnosis of diabetes mellitus, also [facility] and hypertension admitted on 04/21/2022 with 5 day history of slowly worsening abdominal pain. On ER evaluation metabolic acidosis with hyperglycemia and CT evidence of duodenitis, also with significantly elevated lipase and triglycerides. Elevated by General surgery with no concern for duodenal perforation at this time. Patient admitted to intensive care unit requiring insulin drip. Review of Systems Constitutional: Constitutional: Denies daytime sleepiness, Denies excessive sweating, Denies fatigue, Denies fever(s), Denies lethargy, Denies malaise, Denies night sweats, Denies snoring and Denies weight loss Eyes: Eyes: Denies blurry vision and Denies itchy eyes ENT: Denies nasal congestion, Denies post nasal drip, Denies sinus pain, Denies sinus pressure and Denies other ( Thrush) Cardiovascular: Cardiovascular: Denies chest pain, Denies pedal edema, Denies dyspnea, Denies orthopnea and Denies paroxysmal nocturnal dyspnea Respiratory: Respiratory: Denies cough, Denies hemoptysis, Denies excessive phlegm production, Denies dyspnea, Denies snoring and Denies wheezing Gastrointestinal: Gastrointestinal: Reports abdominal pain and Denies heartburn Musculoskeletal: Musculoskeletal: Denies myalgias, Denies arthralgias and Denies joint swelling Integumentary/Breasts: Skin/Breast: Denies rash Neurologic: Denies memory loss and Denies seizure-like activity Psychiatric: Psychiatric: Denies abnormal sleep pattern, Denies anxiety and Denies memory loss Endocrine: Endocrine: Denies excessive sweating, Denies fatigue and Denies heat intolerance Hematologic/Lymphatic: Hematologic/Lymphatic: Denies easy bruising Allergic/Immunologic: Allergic/Immunologic: Denies itchy eyes, Denies seasonal rhinorrhea and Denies wheezing PMFSH Past Medical History Medical History Abdominal pain Asthma Benign essential hypertension Diabetes mellitus Gout Obesity (BMI 30-39.9) Obstructive sleep apnea Pure hypercholesterolemia Renal calculi Family History Family History Father Hypertension Stroke Mother Hypertension Maternal Grandfather Myocardial infarction Surgical History Surgical History No pertinent past surgical history Social History Social History Housing: Apartment Alcohol intake: current Alcohol intake frequency: does not drink Patient Tobacco Use Status: Never used Tobacco Smoked in Last 30 Days: No Second Hand Smoke Exposure: Yes Use of substances other than those prescribed or required for medical reasons: No Advance Directives: No Advance Directives Information Provided: No Nutrition Risks: No Nutritional Risk service: No Current occupational status: employed Cognitive needs: No Hearing needs: No Vision needs: Yes Meds Allergies Allergy/AdvReac Type Severity Reaction Status Date / Time codeine [CODEINE] Allergy Unknown UNKNOWN Verified 04/21/22 11:47 Active Medications: Current Medications Dextrose (Dextrose 50 % 25 Gm/50 Ml Syringe) 25 gm IVPUSH Q30M PRN PRN Reason: Nursing Actions in Insulin Infusion Protocol Dextrose (Dextrose 50 % 25 Gm/50 Ml Syringe) 25 gm IVPUSH Q30M PRN PRN Reason: BG < 70 Sodium Bicarbonate 150 meq/ (Dextrose) 1,000 mls @ 100 mls/hr IV .Q10H KLAUDIA Last Admin: 04/21/22 14:09 Dose: 100 mls/hr Insulin Human Regular (Myxredlin) 100 unit in 100 mls @ 9 mls/hr IVCONT .Q11H7M KLAUDIA; Protocol Last Admin: 04/21/22 13:42 Dose: 9 unit/hr, 9 mls/hr Dextrose/Lactated Ringer's (D5lr) 1,000 mls @ 100 mls/hr IVCONT .Q10H KLAUDIA Last Admin: 04/21/22 14:23 Dose: 100 mls/hr Pharmacy Consult (Consult Rx Perform Med Rec) 1 each MISCELLANE ONCE PRN PRN Reason: Consult order Home Medications Medication Instructions Recorded Confirmed Last Taken Type aspirin 81 mg tablet 81 mg PO DAILY 04/21/22 04/21/22 04/21/22 History Physical Exam Vital Signs: Vital Signs: Last Vital Signs Temp 98.2 F 04/21/22 16:00 Pulse 122 H 04/21/22 16:00 Resp 30 H 04/21/22 16:00 BP 112/50 L 04/21/22 16:00 Pulse Ox 96 04/21/22 16:00 O2 Del Method 04/21/22 16:00 BMI result Body Mass Index 31.4 Const: General: no acute distress and alert Orientation/consciousness: Other orientation findings ( oriented) HEENT: Head: Yes atraumatic Eyes: General: appearance normal, both eyes and all related structures Sclerae: sclerae normal EOM: EOMs intact bilaterally Neck: Neck: Yes supple Lymphatic: no lymphadenopathy noted Resp: Effort & Inspection: normal respiratory effort and no use of accessory muscles Auscultation: clear to auscultation bilaterally Cardio: Rate: regular rate Rhythm: regular rhythm Heart sounds: no gallops, no murmurs and no rubs GI: Palpation (GI): Soft to palpation, no guarding, not rigid, No Rebound tenderness present and Other GI palpation findings present ( Mild diffuse tenderness) Auscultation: normal bowel sounds Skin: General skin exam: other ( warm) Rashes: no rashes Extrem: General: No clubbing, No cyanosis and No edema Results Labs 04/21/22 12:01 04/21/22 15:07 Labs: Laboratory Results - last 24 hr 04/21/22 04/21/22 04/21/22 12:00 12:01 12:01 MCV 86.0 MCH 27.7 MCHC 32.3 RDW 15.1 Plt Count 295 D MPV 11.7 Immature Gran % (Auto) 1.5 H Neut % (Auto) 77.8 H Lymph % (Auto) 12.3 L Dent % (Auto) 7.4 Eos % (Auto) 0.5 Baso % (Auto) 0.5 Lymph # (Auto) 1.8 Dent # (Auto) 1.1 Eos # (Auto) 0.1 Baso # (Auto) 0.1 Abs Immat Gran (auto) 0.21 H Absolute Neuts (auto) 11.2 H Absolute Nucleated RBC 0.000 Nucleated RBC % (auto) 0.0 VBG pH VBG pCO2 VBG pO2 VBG HCO3 VBG O2 Saturation VBG Base Excess Anion Gap 31 H Estim Creat Clear Calc 56.5 Estimated GFR 37 POC Glucose Random Glucose 253 H Fasting Glucose Estimat Average Glucose Hemoglobin A1c % Lactic Acid Calcium 9.3 Magnesium 2.3 Total Bilirubin 0.4 Direct Bilirubin < 0.2 AST 28 ALT 29 Alkaline Phosphatase 86 Troponin I High Sens < 3.5 Total Protein 7.8 Albumin 3.7 Triglycerides 894 Lipase 505 H Urine Color Urine Appearance Urine pH Ur Specific [place] Urine Protein Urine Glucose (UA) Urine Ketones Urine Blood Urine Nitrite Ur Leukocyte Esterase Urine RBC Urine WBC Ur Squamous Epith Cells Other Crystals Urine Bacteria Hyaline Casts Granular Casts Ethyl Alcohol < 10 Acetone, Qual COVID-19 (DEYSI) COVID-19 Clin Com 04/21/22 04/21/22 04/21/22 12:01 12:01 12:01 MCV MCH MCHC RDW Plt Count MPV Immature Gran % (Auto) Neut % (Auto) Lymph % (Auto) Dent % (Auto) Eos % (Auto) Baso % (Auto) Lymph # (Auto) Dent # (Auto) Eos # (Auto) Baso # (Auto) Abs Immat Gran (auto) Absolute Neuts (auto) Absolute Nucleated RBC Nucleated RBC % (auto) VBG pH VBG pCO2 VBG pO2 VBG HCO3 VBG O2 Saturation VBG Base Excess Anion Gap Estim Creat Clear Calc Estimated GFR POC Glucose Random Glucose Fasting Glucose Estimat Average Glucose TNP Hemoglobin A1c % > 14.0 Lactic Acid Calcium Magnesium Total Bilirubin Direct Bilirubin AST ALT Alkaline Phosphatase Troponin I High Sens Total Protein Albumin Triglycerides Cancelled Lipase Urine Color Urine Appearance Urine pH Ur Specific [place] Urine Protein Urine Glucose (UA) Urine Ketones Urine Blood Urine Nitrite Ur Leukocyte Esterase Urine RBC Urine WBC Ur Squamous Epith Cells Other Crystals Urine Bacteria Hyaline Casts Granular Casts Ethyl Alcohol Cancelled Acetone, Qual Small H COVID-19 (DEYSI) Negative COVID-19 Clin Com See Note 04/21/22 04/21/22 04/21/22 12:07 12:50 13:30 MCV MCH MCHC RDW Plt Count MPV Immature Gran % (Auto) Neut % (Auto) Lymph % (Auto) Dent % (Auto) Eos % (Auto) Baso % (Auto) Lymph # (Auto) Dent # (Auto) Eos # (Auto) Baso # (Auto) Abs Immat Gran (auto) Absolute Neuts (auto) Absolute Nucleated RBC Nucleated RBC % (auto) VBG pH 7.13 L* VBG pCO2 21 VBG pO2 40 VBG HCO3 7 L VBG O2 Saturation 50.0 VBG Base Excess -19.7 Anion Gap Estim Creat Clear Calc Estimated GFR POC Glucose 235 H Random Glucose Fasting Glucose Estimat Average Glucose Hemoglobin A1c % Lactic Acid 1.3 Calcium Magnesium Total Bilirubin Direct Bilirubin AST ALT Alkaline Phosphatase Troponin I High Sens Total Protein Albumin Triglycerides Lipase Urine Color Urine Appearance Urine pH Ur Specific [place] Urine Protein Urine Glucose (UA) Urine Ketones Urine Blood Urine Nitrite Ur Leukocyte Esterase Urine RBC Urine WBC Ur Squamous Epith Cells Other Crystals Urine Bacteria Hyaline Casts Granular Casts Ethyl Alcohol Acetone, Qual COVID-19 (DEYSI) COVID-19 Eyewitness Surveillance Com 04/21/22 04/21/22 04/21/22 14:04 15:07 15:15 MCV MCH MCHC RDW Plt Count MPV Immature Gran % (Auto) Neut % (Auto) Lymph % (Auto) Dent % (Auto) Eos % (Auto) Baso % (Auto) Lymph # (Auto) Dent # (Auto) Eos # (Auto) Baso # (Auto) Abs Immat Gran (auto) Absolute Neuts (auto) Absolute Nucleated RBC Nucleated RBC % (auto) VBG pH 7.25 L VBG pCO2 11 VBG pO2 137 VBG HCO3 5 L VBG O2 Saturation 99.0 VBG Base Excess -18.7 Anion Gap 22 H Estim Creat Clear Calc 82.6 Estimated GFR 57 POC Glucose Random Glucose Fasting Glucose 425 H* Estimat Average Glucose Hemoglobin A1c % Lactic Acid Calcium 7.6 L D Magnesium Total Bilirubin 0.3 Direct Bilirubin AST 17 ALT 18 Alkaline Phosphatase 58 Troponin I High Sens Total Protein 5.6 L Albumin 2.5 L Triglycerides Lipase Urine Color Yellow Urine Appearance Cloudy Urine pH 5.0 Ur Specific [place] >= 1.030 H Urine Protein 30 (1+) H Urine Glucose (UA) >=1000 H Urine Ketones 80 Urine Blood Trace H Urine Nitrite Negative Ur Leukocyte Esterase Negative Urine RBC 0-2 Urine WBC 0-5 Ur Squamous Epith Cells 3-5 Other Crystals Present Urine Bacteria None Seen Hyaline Casts 11-20 Granular Casts Present Ethyl Alcohol Acetone, Qual COVID-19 (DEYSI) COVID-19 Clin Com 04/21/22 15:59 MCV MCH MCHC RDW Plt Count MPV Immature Gran % (Auto) Neut % (Auto) Lymph % (Auto) Dent % (Auto) Eos % (Auto) Baso % (Auto) Lymph # (Auto) Dent # (Auto) Eos # (Auto) Baso # (Auto) Abs Immat Gran (auto) Absolute Neuts (auto) Absolute Nucleated RBC Nucleated RBC % (auto) VBG pH VBG pCO2 VBG pO2 VBG HCO3 VBG O2 Saturation VBG Base Excess Anion Gap Estim Creat Clear Calc Estimated GFR POC Glucose 210 H Random Glucose Fasting Glucose Estimat Average Glucose Hemoglobin A1c % Lactic Acid Calcium Magnesium Total Bilirubin Direct Bilirubin AST ALT Alkaline Phosphatase Troponin I High Sens Total Protein Albumin Triglycerides Lipase Urine Color Urine Appearance Urine pH Ur Specific [place] Urine Protein Urine Glucose (UA) Urine Ketones Urine Blood Urine Nitrite Ur Leukocyte Esterase Urine RBC Urine WBC Ur Squamous Epith Cells Other Crystals Urine Bacteria Hyaline Casts Granular Casts Ethyl Alcohol Acetone, Qual COVID-19 (DEYSI) COVID-19 Clin Com Imaging Radiologist's Impressions: Impressions Abdomen/Pelvis CT 04/21/22 12:05 IMPRESSION: 1. Severe inflammatory process centered around the second and third portion of the duodenum as well as the pancreatic head. Findings are highly suspicious for a ruptured duodenal ulcer. Inflammatory changes around the pancreatic head are probably secondary as are the inflammatory changes around the distal descending colon 2. Markedly enlarged fatty liver. Fleischner guidelines were followed. This critical result was discussed with Lizette MCDANIELS at 1:10 PM on the day the exam and it was ascertained that the content and urgency of the report was understood at the time of direct communication. Chest X-Ray 04/21/22 12:10 IMPRESSION: Unremarkable examination. Assessment and Plan (1) Hypertriglyceridemia: Status: Acute (2) DKA (diabetic ketoacidosis): Status: Acute (3) Pancreatitis: Status: Acute (4) Acute kidney injury: Status: Acute Plan Assessment: 36-year-old gentleman admitted with metabolic acidosis, pancreatitis, diabetic ketoacidosis, and acute renal failure. Plan: Neuro: No acute issues. Cardiac: No acute issues. Pulmonary: No acute issues. Renal: Acute renal failure, likely secondary to fluid chest secondary to pancreatitis. Non oliguric. Continue to monitor renal indices and urine output. Endo: Acute pancreatitis with hypertriglyceridemia and ketoacidosis, continue on insulin drip. General surgery service care appreciated. GI: No acute issues. ID: No acute issues Heme/Onc: No acute issues. Psych: No acute issues. Miscellaneous: No acute issues. Prophylaxis: Pneumatic compression Diet: nothing by mouth Critical care time spent: 45 minutes Time Spent With Patient Time: Total time managing care of this patient today ____ minutes.
[2022-04-21 16:52] LABS: Venous Blood Gas Refer to POC result
--- NOTE | 2022-04-21 16:58 | PC.NURSE ---
Patient resting comfortably brother at bedside reports feeling better continues on insulin drip and D5 with LR with no ill effect
[2022-04-21 17:56] LABS: Glucose, Whole Blood 178 mg/dL (60-115)
--- NOTE | 2022-04-21 18:14 | PC.NURSE ---
Inpatient MD paged
--- NOTE | 2022-04-21 18:18 | PC.NURSE ---
Spoke with pharmacy who suggested reaching out to MD will recheck BS in one hour awaiting call from nurse school to ensure no precipitous drop in BS will CTM
[2022-04-21 19:02] LABS: Glucose, Whole Blood 152 mg/dL (60-115)
[2022-04-21 19:42] LABS: Acetone, serum QL Moderate (Negative)
[2022-04-21 19:55] LABS: Cholesterol 545 mg/dL; HDL Cholesterol 11 mg/dL; Triglycerides 2089 mg/dL
--- NOTE | 2022-04-21 20:05 | PC.NURSE ---
Took of over care at 1900 from SLAVA Ash. Pt a&o, no sob or chest pain at this time. Report called, Pt insulin stop at this time. Pt reports he is feeling better.
[2022-04-21 20:15] LABS: Alanine Aminotransferase 20 U/L (0-40); Alkaline Phosphatase 73 U/L (39-117); Aspartate Amino Transferase 21 U/L (5-37); Bilirubin Total 0.3 mg/dL (0.0-1.0); Blood Urea Nitrogen 27 mg/dL (9-16); Calcium 8.2 mg/dL (8.4-10.2); Creatinine Clr Calc Pharmacy 66.7; Estimated Glomerular Filt Rate 45; Glucose Random 147 mg/dL (60-115); Total Protein 6.5 g/dL (6.5-8.0)
[2022-04-21 20:27] LABS: Anion Gap 19 (12-20); Carbon Dioxide 13 mmol/L (22-29); Chloride 104 mmol/L (96-108); Sodium 132 mmol/L (135-145)
[2022-04-21 20:48] LABS: Glucose, Whole Blood 152 mg/dL (60-115)
[2022-04-21 21:05] LABS: MANUAL DIFF FLAG NO
[2022-04-21] MEDS: Dextrose 5 % and Lactated Ring 1,000 ML 200 ML IVCONT (21:05)
[2022-04-21 21:07] LABS: Basophils Percent Auto 0.3 % (0-2); Eosinophils Absolute Auto 0.1 X10*3/uL (0.0-0.4); Eosinophils Percent Auto 0.9 % (0-4); Hemoglobin 13.5 g/dl (14.0-18.0); Imm Gran Abs Auto 0.13 X10*3/uL (0.00-0.03); Imm Gran Pct Auto 1.2 % (0.0-0.4); Lymphocytes Absolute Auto 1.3 X10*3/uL (1.2-4.9); Lymphocytes Percent Auto 11.9 % (20-40); Mean Corpuscular HGB Conc 33.8 g/dl (31.0-36.0); Mean Corpuscular Hemoglobin 27.9 pg (27.0-33.0); Mean Corpuscular Volume 82.6 fL (80.0-98.0); Mean Platelet Volume 11.6 fL (9.4-12.4); Monocytes Absolute Auto 1.3 X10*3/uL (0.1-1.2); Monocytes Percent Auto 11.4 % (2-11); Neutrophils Absolute Auto 8.3 x10*3/uL (2.0-8.3); Neutrophils Percent Auto 74.3 % (45-73); Platelet Count 228 X10*3/uL (160-400); Red Blood Count 4.84 X10*6/uL (4.60-5.80); Red Cell Distribution Width 15.1 % (11.0-16.0); White Blood Count 11.1 X10*3/uL (4.8-10.8)
[2022-04-21 21:44] LABS: Glucose, Whole Blood 178 mg/dL (60-115)
[2022-04-21 22:33] LABS: Glucose, Whole Blood 193 mg/dL (60-115)
[2022-04-21 23:37] LABS: Glucose, Whole Blood 206 mg/dL (60-115)
[2022-04-21 23:58] LABS: ABG Base Excess -9.4 mmol/L; ABG HCO3 14 mmol/L (22-26); ABG pCO2 26 mmHg (32-45); ABG pH 7.34 (7.35-7.45); ABG pO2 86 mmHg (83-108)
[2022-04-22] VITALS (25 sets, daily range): BP systolic 106–190; BP diastolic 55–89; PULSE 84–126; RESP 15–38; TEMP 36.2–38.1; O2SAT 93–95; BMI 31.0
[2022-04-22 00:31] LABS: Glucose, Whole Blood 207 mg/dL (60-115)
[2022-04-22] MEDS: Dextrose 5 % and Lactated Ring 1,000 ML 250 ML IVCONT ×5 (00:34→18:12)
[2022-04-22] MEDS: Insulin Regular/NS 100 UNIT/100 ML PLAST..BAG IVCONT (00:35)
[2022-04-22 00:47] LABS: ABG Refer to POC result
[2022-04-22] MEDS: Piperacillin Sodium/Tazobactam 3.375 GM in 0.9 % Sodium Chloride 50 ML IV ×4 (00:49→20:26)
[2022-04-22 00:58] LABS: Glucose, Whole Blood 192 mg/dL (60-115)
[2022-04-22] MEDS: KCl 40 mEq in 5% Dex/0.45% Sod 40 MEQ/1,000 ML IV.SOLN 250 MEQ IVCONT ×2 (02:00→20:23)
[2022-04-22] MEDS: Potassium Phosphate/NS 15 MMOL/250 ML PLAST..BAG 62.5 MMOL IV ×2 (02:00→09:04)
[2022-04-22 04:37] LABS: Glucose, Whole Blood 188 mg/dL (60-115)
[2022-04-22 04:37] LABS: Glucose, Whole Blood 187 mg/dL (60-115)
--- NOTE | 2022-04-22 04:54 | PC.NURSE ---
Addendum entered by Louie Leblanc RN 04/22/22 06:11: SERIAL POC GLUCOSE LEVELS STABLE...PER ICU CAR BUILDER TO CHECK POC LEVELS Q2 HOURS LONG GLUCOSE REMAINS 150-200...KPO4 AND IV WITH KCL INFUSED....D5LR RESUMED 250 CC/HR Original Note: CARE ASSUMED 23:15...ALERT..ORIENTED X3....INSULIN DRIP 4 UNITS/HR...D5LR 250 CC/HR...CHEMISTRY AND ABG S REVIEWED BY ICU CAR BUILDER.....2AM D5LR HELD AND K-PO4 15mmol/250ml and D5 1/2NS/KCL 40 MEQ 1000ml BAGS HUNG--BOTH TO INFUSE OVER 4 HOURS....PER ICU CAR BUILDER TO DRAW AM LABS 6AM AND TO RESUME D5LR 250 CC/HR AT 6AM...PATIENT REMAINS TACHYPNEIC--RR 30'S BUT DENIES SOB--SAO2 94-95% ON ROOM AIR...DENIES/OFFERS NO COMPLAINTS...VOIDEING YELLOW URINE..NAPPING INTERMITTANTLY OVERNIGHT
[2022-04-22 05:08] LABS: Glucose, Whole Blood 199 mg/dL (60-115)
[2022-04-22 05:48] LABS: Anion Gap 17 (12-20); Blood Urea Nitrogen 22 mg/dL (9-16); Calcium 7.8 mg/dL (8.4-10.2); Carbon Dioxide 13 mmol/L (22-29); Chloride 108 mmol/L (96-108); Creatinine Clr Calc Pharmacy 79.2; Estimated Glomerular Filt Rate 55; Glucose Random 189 mg/dL (60-115); Phosphorus 1.8 mg/dL (2.7-4.5); Potassium 3.6 mmol/L (3.3-5.1); Sodium 134 mmol/L (135-145)
[2022-04-22 06:06] LABS: VBG Base Excess -6.3 mmol/L; VBG HCO3 17 mmol/L (22-26); VBG pCO2 28 mmHg; VBG pH 7.38 (7.32-7.43); VBG pO2 78 mmHg
[2022-04-22 06:10] LABS: MANUAL DIFF FLAG NO
[2022-04-22 06:20] LABS: Glucose, Whole Blood 193 mg/dL (60-115)
[2022-04-22 06:24] LABS: Basophils Percent Auto 0.3 % (0-2); Eosinophils Absolute Auto 0.1 X10*3/uL (0.0-0.4); Eosinophils Percent Auto 0.8 % (0-4); Hematocrit 40.5 % (42.0-52.0); Hemoglobin 13.4 g/dl (14.0-18.0); Imm Gran Abs Auto 0.12 X10*3/uL (0.00-0.03); Imm Gran Pct Auto 1.2 % (0.0-0.4); Lymphocytes Absolute Auto 0.9 X10*3/uL (1.2-4.9); Lymphocytes Percent Auto 9.4 % (20-40); Mean Corpuscular HGB Conc 33.1 g/dl (31.0-36.0); Mean Corpuscular Volume 81.7 fL (80.0-98.0); Mean Platelet Volume 11.1 fL (9.4-12.4); Monocytes Absolute Auto 0.9 X10*3/uL (0.1-1.2); Monocytes Percent Auto 8.9 % (2-11); Neutrophils Absolute Auto 7.7 x10*3/uL (2.0-8.3); Neutrophils Percent Auto 79.4 % (45-73); Platelet Count 230 X10*3/uL (160-400); Red Blood Count 4.96 X10*6/uL (4.60-5.80); Red Cell Distribution Width 15.1 % (11.0-16.0); White Blood Count 9.7 X10*3/uL (4.8-10.8)
[2022-04-22 07:21] LABS: Venous Blood Gas Refer to POC result
[2022-04-22 07:28] LABS: Alanine Aminotransferase 23 U/L (0-40); Albumin Level 2.9 g/dL (3.5-5.0); Alkaline Phosphatase 65 U/L (39-117); Anion Gap 17 (12-20); Aspartate Amino Transferase 22 U/L (5-37); Bilirubin Total 0.3 mg/dL (0.0-1.0); Blood Urea Nitrogen 16 mg/dL (9-16); Carbon Dioxide 14 mmol/L (22-29); Chloride 109 mmol/L (96-108); Estimated Glomerular Filt Rate > 60; Glucose Random 178 mg/dL (60-115); Lipase 254 U/L (8-78); Magnesium 2.1 mg/dL (1.6-2.6); Phosphorus 2.1 mg/dL (2.7-4.5); Potassium 4.5 mmol/L (3.3-5.1); Sodium 135 mmol/L (135-145); Triglycerides 1770 mg/dL
[2022-04-22 07:35] LABS: Anion Gap 16 (12-20); Blood Urea Nitrogen 16 mg/dL (9-16); Calcium 7.9 mg/dL (8.4-10.2); Carbon Dioxide 14 mmol/L (22-29); Chloride 109 mmol/L (96-108); Estimated Glomerular Filt Rate > 60; Glucose Fasting 176 mg/dL (60-99); Phosphorus 2.1 mg/dL (2.7-4.5); Potassium 4.4 mmol/L (3.3-5.1); Sodium 135 mmol/L (135-145)
[2022-04-22 07:57] LABS: Glucose, Whole Blood 173 mg/dL (60-115)
--- NOTE | 2022-04-22 10:04 | MHC.CM.PN ---
Met with pt to discuss d/c planning needs: pt resides alone, drives, works and has no services. Uses a glucometer and CPAP (getting a new machine in June). Pt declines HCP completion, vax x 2. Pt states his vehicle is in the ED lot and he will drive himself home when d/c'd.
[2022-04-22 10:11] LABS: Glucose, Whole Blood 163 mg/dL (60-115)
--- NOTE | 2022-04-22 10:49 | P.PNCC_ITS ---
Subjective Subjective Date of Service: 04/22/22 Interval History: 36-year-old gentleman with recent diagnosis of diabetes mellitus, also [facility] and hypertension admitted on 04/21/2022 with 5 day history of slowly worsening abdominal pain. On ER evaluation metabolic acidosis with hyperglycemia and CT evidence of duodenitis, also with significantly elevated lipase and triglycerides. Elevated by General surgery with no concern for duodenal perforation at this time. Patient admitted to intensive care unit requiring insulin drip. No events overnight. Triglycerides initially worsened, and now are slowly improving. Critical Care Time (minutes): 45 Physical Exam Vital Signs: Vital Signs: Last Vital Signs Temp 97.2 F 04/22/22 08:00 Pulse 116 H 04/22/22 10:00 Resp 36 H 04/22/22 10:00 BP 132/84 04/22/22 10:00 Pulse Ox 95 04/22/22 10:00 O2 Del Method 04/22/22 10:00 BMI result Body Mass Index 31.0 Const: General: no acute distress, alert and awake Eyes: Sclerae: sclerae normal EOM: EOMs intact bilaterally Neck: Neck: Yes no lymphadenopathy, Yes trachea midline and Yes supple Resp: Effort & Inspection: normal respiratory effort and no respiratory distress Auscultation: clear to auscultation bilaterally Cardio: Rate: regular rate Rhythm: regular rhythm Heart sounds: no gallops, no murmurs and no rubs GI: Palpation (GI): Soft to palpation, no guarding, No Rebound tenderness present and Other GI palpation findings present (Mild diffuse tenderness, particularly periumbilical) Auscultation: normal bowel sounds Extrem: General: Yes no pedal edema, No clubbing and No cyanosis Objective Data Labs 04/22/22 05:59 04/22/22 05:59 Labs: Laboratory Results - last 24 hr 04/21/22 04/21/22 04/21/22 12:00 12:01 12:01 WBC 14.4 H RBC 5.77 Hgb 16.0 Hct 49.6 MCV 86.0 MCH 27.7 MCHC 32.3 RDW 15.1 Plt Count 295 D MPV 11.7 Immature Gran % (Auto) 1.5 H Neut % (Auto) 77.8 H Lymph % (Auto) 12.3 L [place] % (Auto) 7.4 Eos % (Auto) 0.5 Baso % (Auto) 0.5 Lymph # (Auto) 1.8 [place] # (Auto) 1.1 Eos # (Auto) 0.1 Baso # (Auto) 0.1 Abs Immat Gran (auto) 0.21 H Absolute Neuts (auto) 11.2 H Absolute Nucleated RBC 0.000 Nucleated RBC % (auto) 0.0 O2 Saturation ABG pH at Pt Temp ABG pCO2 at Pt Temp ABG pO2 at Pt Temp ABG HCO3 ABG Base Excess (Actual) VBG pH VBG pCO2 VBG pO2 VBG HCO3 VBG O2 Saturation VBG Base Excess Sodium 132 L Potassium 5.5 H Chloride 101 Carbon Dioxide 6 L* D Anion Gap 31 H BUN 28 H Creatinine 2.03 H Estim Creat Clear Calc 56.5 Estimated GFR 37 POC Glucose Random Glucose 253 H Fasting Glucose Estimat Average Glucose Hemoglobin A1c % Lactic Acid Calcium 9.3 Phosphorus Magnesium 2.3 Total Bilirubin 0.4 Direct Bilirubin < 0.2 AST 28 ALT 29 Alkaline Phosphatase 86 Troponin I High Sens < 3.5 Total Protein 7.8 Albumin 3.7 Triglycerides 894 Cholesterol LDL Cholesterol, Calc HDL Cholesterol Lipase 505 H Urine Color Urine Appearance Urine pH Ur Specific [place] Urine Protein Urine Glucose (UA) Urine Ketones Urine Blood Urine Nitrite Ur Leukocyte Esterase Urine RBC Urine WBC Ur Squamous Epith Cells Other Crystals Urine Bacteria Hyaline Casts Granular Casts Ethyl Alcohol < 10 Acetone, Qual COVID-19 ([facility]SI) COVID-19 Clin Com 04/21/22 04/21/22 04/21/22 12:01 12:01 12:01 WBC RBC Hgb Hct MCV MCH MCHC RDW Plt Count MPV Immature Gran % (Auto) Neut % (Auto) Lymph % (Auto) [place] % (Auto) Eos % (Auto) Baso % (Auto) Lymph # (Auto) [place] # (Auto) Eos # (Auto) Baso # (Auto) Abs Immat Gran (auto) Absolute Neuts (auto) Absolute Nucleated RBC Nucleated RBC % (auto) O2 Saturation ABG pH at Pt Temp ABG pCO2 at Pt Temp ABG pO2 at Pt Temp ABG HCO3 ABG Base Excess (Actual) VBG pH VBG pCO2 VBG pO2 VBG HCO3 VBG O2 Saturation VBG Base Excess Sodium Potassium Chloride Carbon Dioxide Anion Gap BUN Creatinine Estim Creat Clear Calc Estimated GFR POC Glucose Random Glucose Fasting Glucose Estimat Average Glucose TNP Hemoglobin A1c % > 14.0 Lactic Acid Calcium Phosphorus Magnesium Total Bilirubin Direct Bilirubin AST ALT Alkaline Phosphatase Troponin I High Sens Total Protein Albumin Triglycerides Cancelled Cholesterol LDL Cholesterol, Calc HDL Cholesterol Lipase Urine Color Urine Appearance Urine pH Ur Specific [place] Urine Protein Urine Glucose (UA) Urine Ketones Urine Blood Urine Nitrite Ur Leukocyte Esterase Urine RBC Urine WBC Ur Squamous Epith Cells Other Crystals Urine Bacteria Hyaline Casts Granular Casts Ethyl Alcohol Cancelled Acetone, Qual Small H COVID-19 ([facility]YSI) Negative COVID-19 Clin Com See Note 04/21/22 04/21/22 04/21/22 12:07 12:50 13:30 WBC RBC Hgb Hct MCV MCH MCHC RDW Plt Count MPV Immature Gran % (Auto) Neut % (Auto) Lymph % (Auto) [place] % (Auto) Eos % (Auto) Baso % (Auto) Lymph # (Auto) [place] # (Auto) Eos # (Auto) Baso # (Auto) Abs Immat Gran (auto) Absolute Neuts (auto) Absolute Nucleated RBC Nucleated RBC % (auto) O2 Saturation ABG pH at Pt Temp ABG pCO2 at Pt Temp ABG pO2 at Pt Temp ABG HCO3 ABG Base Excess (Actual) VBG pH 7.13 L* VBG pCO2 21 VBG pO2 40 VBG HCO3 7 L VBG O2 Saturation 50.0 VBG Base Excess -19.7 Sodium Potassium Chloride Carbon Dioxide Anion Gap BUN Creatinine Estim Creat Clear Calc Estimated GFR POC Glucose 235 H Random Glucose Fasting Glucose Estimat Average Glucose Hemoglobin A1c % Lactic Acid 1.3 Calcium Phosphorus Magnesium Total Bilirubin Direct Bilirubin AST ALT Alkaline Phosphatase Troponin I High Sens Total Protein Albumin Triglycerides Cholesterol LDL Cholesterol, Calc HDL Cholesterol Lipase Urine Color Urine Appearance Urine pH Ur Specific [place] Urine Protein Urine Glucose (UA) Urine Ketones Urine Blood Urine Nitrite Ur Leukocyte Esterase Urine RBC Urine WBC Ur Squamous Epith Cells Other Crystals Urine Bacteria Hyaline Casts Granular Casts Ethyl Alcohol Acetone, Qual COVID-19 (DEYSI) COVID-19 Clin Com 04/21/22 04/21/22 04/21/22 14:04 15:07 15:07 WBC RBC Hgb Hct MCV MCH MCHC RDW Plt Count MPV Immature Gran % (Auto) Neut % (Auto) Lymph % (Auto) [place] % (Auto) Eos % (Auto) Baso % (Auto) Lymph # (Auto) [place] # (Auto) Eos # (Auto) Baso # (Auto) Abs Immat Gran (auto) Absolute Neuts (auto) Absolute Nucleated RBC Nucleated RBC % (auto) O2 Saturation ABG pH at Pt Temp ABG pCO2 at Pt Temp ABG pO2 at Pt Temp ABG HCO3 ABG Base Excess (Actual) VBG pH VBG pCO2 VBG pO2 VBG HCO3 VBG O2 Saturation VBG Base Excess Sodium Cancelled 131 L Potassium Cancelled 3.7 D Chloride Cancelled 107 Carbon Dioxide Cancelled 6 L* Anion Gap Cancelled 22 H BUN Cancelled 24 H Creatinine Cancelled 1.39 Estim Creat Clear Calc Cancelled 82.6 Estimated GFR Cancelled 57 POC Glucose Random Glucose Cancelled Fasting Glucose 425 H* Estimat Average Glucose Hemoglobin A1c % Lactic Acid Calcium Cancelled 7.6 L D Phosphorus Magnesium Total Bilirubin 0.3 Direct Bilirubin AST 17 ALT 18 Alkaline Phosphatase 58 Troponin I High Sens Total Protein 5.6 L Albumin 2.5 L Triglycerides 2089 Cholesterol 545 LDL Cholesterol, Calc TNP HDL Cholesterol 11 Lipase Urine Color Yellow Urine Appearance Cloudy Urine pH 5.0 Ur Specific [place] >= 1.030 H Urine Protein 30 (1+) H Urine Glucose (UA) >=1000 H Urine Ketones 80 Urine Blood Trace H Urine Nitrite Negative Ur Leukocyte Esterase Negative Urine RBC 0-2 Urine WBC 0-5 Ur Squamous Epith Cells 3-5 Other Crystals Present Urine Bacteria None Seen Hyaline Casts 11-20 Granular Casts Present Ethyl Alcohol Acetone, Qual Moderate H COVID-19 (DEYSI) COVID-19 Clin Com 04/21/22 04/21/22 04/21/22 15:15 15:59 17:53 WBC RBC Hgb Hct MCV MCH MCHC RDW Plt Count MPV Immature Gran % (Auto) Neut % (Auto) Lymph % (Auto) [place] % (Auto) Eos % (Auto) Baso % (Auto) Lymph # (Auto) [place] # (Auto) Eos # (Auto) Baso # (Auto) Abs Immat Gran (auto) Absolute Neuts (auto) Absolute Nucleated RBC Nucleated RBC % (auto) O2 Saturation ABG pH at Pt Temp ABG pCO2 at Pt Temp ABG pO2 at Pt Temp ABG HCO3 ABG Base Excess (Actual) VBG pH 7.25 L VBG pCO2 11 VBG pO2 137 VBG HCO3 5 L VBG O2 Saturation 99.0 VBG Base Excess -18.7 Sodium Potassium Chloride Carbon Dioxide Anion Gap BUN Creatinine Estim Creat Clear Calc Estimated GFR POC Glucose 210 H 178 H Random Glucose Fasting Glucose Estimat Average Glucose Hemoglobin A1c % Lactic Acid Calcium Phosphorus Magnesium Total Bilirubin Direct Bilirubin AST ALT Alkaline Phosphatase Troponin I High Sens Total Protein Albumin Triglycerides Cholesterol LDL Cholesterol, Calc HDL Cholesterol Lipase Urine Color Urine Appearance Urine pH Ur Specific [place] Urine Protein Urine Glucose (UA) Urine Ketones Urine Blood Urine Nitrite Ur Leukocyte Esterase Urine RBC Urine WBC Ur Squamous Epith Cells Other Crystals Urine Bacteria Hyaline Casts Granular Casts Ethyl Alcohol Acetone, Qual COVID-19 (DEYSI) COVID-19 SMSA CRANE ACQUISITION 04/21/22 04/21/22 04/21/22 18:58 19:37 20:38 WBC RBC Hgb Hct MCV MCH MCHC RDW Plt Count MPV Immature Gran % (Auto) Neut % (Auto) Lymph % (Auto) [place] % (Auto) Eos % (Auto) Baso % (Auto) Lymph # (Auto) [place] # (Auto) Eos # (Auto) Baso # (Auto) Abs Immat Gran (auto) Absolute Neuts (auto) Absolute Nucleated RBC Nucleated RBC % (auto) O2 Saturation ABG pH at Pt Temp ABG pCO2 at Pt Temp ABG pO2 at Pt Temp ABG HCO3 ABG Base Excess (Actual) VBG pH VBG pCO2 VBG pO2 VBG HCO3 VBG O2 Saturation VBG Base Excess Sodium 132 L Potassium 4.0 Chloride 104 Carbon Dioxide 13 L Anion Gap 19 BUN 27 H Creatinine 1.72 H Estim Creat Clear Calc 66.7 Estimated GFR 45 POC Glucose 152 H 152 H Random Glucose 147 H Fasting Glucose Estimat Average Glucose Hemoglobin A1c % Lactic Acid Calcium 8.2 L D Phosphorus Magnesium Total Bilirubin 0.3 Direct Bilirubin AST 21 ALT 20 Alkaline Phosphatase 73 Troponin I High Sens Total Protein 6.5 Albumin 3.0 L Triglycerides Cholesterol LDL Cholesterol, Calc HDL Cholesterol Lipase Urine Color Urine Appearance Urine pH Ur Specific [place] Urine Protein Urine Glucose (UA) Urine Ketones Urine Blood Urine Nitrite Ur Leukocyte Esterase Urine RBC Urine WBC Ur Squamous Epith Cells Other Crystals Urine Bacteria Hyaline Casts Granular Casts Ethyl Alcohol Acetone, Qual COVID-19 (DEYSI) COVID-19 Clin Com 04/21/22 04/21/22 04/21/22 20:59 21:40 22:30 WBC 11.1 H RBC 4.84 Hgb 13.5 L Hct 40.0 L MCV 82.6 MCH 27.9 MCHC 33.8 RDW 15.1 Plt Count 228 MPV 11.6 Immature Gran % (Auto) 1.2 H Neut % (Auto) 74.3 H Lymph % (Auto) 11.9 L [place] % (Auto) 11.4 H Eos % (Auto) 0.9 Baso % (Auto) 0.3 Lymph # (Auto) 1.3 [place] # (Auto) 1.3 H Eos # (Auto) 0.1 Baso # (Auto) 0.0 Abs Immat Gran (auto) 0.13 H Absolute Neuts (auto) 8.3 Absolute Nucleated RBC 0.000 Nucleated RBC % (auto) 0.0 O2 Saturation ABG pH at Pt Temp ABG pCO2 at Pt Temp ABG pO2 at Pt Temp ABG HCO3 ABG Base Excess (Actual) VBG pH VBG pCO2 VBG pO2 VBG HCO3 VBG O2 Saturation VBG Base Excess Sodium Potassium Chloride Carbon Dioxide Anion Gap BUN Creatinine Estim Creat Clear Calc Estimated GFR POC Glucose 178 H 193 H Random Glucose Fasting Glucose Estimat Average Glucose Hemoglobin A1c % Lactic Acid Calcium Phosphorus Magnesium Total Bilirubin Direct Bilirubin AST ALT Alkaline Phosphatase Troponin I High Sens Total Protein Albumin Triglycerides Cholesterol LDL Cholesterol, Calc HDL Cholesterol Lipase Urine Color Urine Appearance Urine pH Ur Specific [place] Urine Protein Urine Glucose (UA) Urine Ketones Urine Blood Urine Nitrite Ur Leukocyte Esterase Urine RBC Urine WBC Ur Squamous Epith Cells Other Crystals Urine Bacteria Hyaline Casts Granular Casts Ethyl Alcohol Acetone, Qual COVID-19 ([facility]YSI) COVID-19 Clin Com 04/21/22 04/21/22 04/22/22 23:33 23:50 00:06 WBC RBC Hgb Hct MCV MCH MCHC RDW Plt Count MPV Immature Gran % (Auto) Neut % (Auto) Lymph % (Auto) [place] % (Auto) Eos % (Auto) Baso % (Auto) Lymph # (Auto) [place] # (Auto) Eos # (Auto) Baso # (Auto) Abs Immat Gran (auto) Absolute Neuts (auto) Absolute Nucleated RBC Nucleated RBC % (auto) O2 Saturation 96.0 ABG pH at Pt Temp 7.34 L ABG pCO2 at Pt Temp 26 L ABG pO2 at Pt Temp 86 ABG HCO3 14 L ABG Base Excess (Actual) -9.4 VBG pH VBG pCO2 VBG pO2 VBG HCO3 VBG O2 Saturation VBG Base Excess Sodium Potassium Chloride Carbon Dioxide Anion Gap BUN Creatinine Estim Creat Clear Calc Estimated GFR POC Glucose 206 H 207 H Random Glucose Fasting Glucose Estimat Average Glucose Hemoglobin A1c % Lactic Acid Calcium Phosphorus Magnesium Total Bilirubin Direct Bilirubin AST ALT Alkaline Phosphatase Troponin I High Sens Total Protein Albumin Triglycerides Cholesterol LDL Cholesterol, Calc HDL Cholesterol Lipase Urine Color Urine Appearance Urine pH Ur Specific [place] Urine Protein Urine Glucose (UA) Urine Ketones Urine Blood Urine Nitrite Ur Leukocyte Esterase Urine RBC Urine WBC Ur Squamous Epith Cells Other Crystals Urine Bacteria Hyaline Casts Granular Casts Ethyl Alcohol Acetone, Qual COVID-19 (DEYSI) COVID-19 SMSA CRANE ACQUISITION 04/22/22 04/22/22 04/22/22 00:54 00:57 02:07 WBC RBC Hgb Hct MCV MCH MCHC RDW Plt Count MPV Immature Gran % (Auto) Neut % (Auto) Lymph % (Auto) [place] % (Auto) Eos % (Auto) Baso % (Auto) Lymph # (Auto) [place] # (Auto) Eos # (Auto) Baso # (Auto) Abs Immat Gran (auto) Absolute Neuts (auto) Absolute Nucleated RBC Nucleated RBC % (auto) O2 Saturation ABG pH at Pt Temp ABG pCO2 at Pt Temp ABG pO2 at Pt Temp ABG HCO3 ABG Base Excess (Actual) VBG pH VBG pCO2 VBG pO2 VBG HCO3 VBG O2 Saturation VBG Base Excess Sodium 134 L Potassium 3.6 Chloride 108 Carbon Dioxide 13 L Anion Gap 17 BUN 22 H Creatinine 1.44 H Estim Creat Clear Calc 79.2 Estimated GFR 55 POC Glucose 192 H 187 H Random Glucose 189 H Fasting Glucose Estimat Average Glucose Hemoglobin A1c % Lactic Acid Calcium 7.8 L Phosphorus 1.8 L Magnesium Total Bilirubin Direct Bilirubin AST ALT Alkaline Phosphatase Troponin I High Sens Total Protein Albumin Triglycerides Cholesterol LDL Cholesterol, Calc HDL Cholesterol Lipase Urine Color Urine Appearance Urine pH Ur Specific [place] Urine Protein Urine Glucose (UA) Urine Ketones Urine Blood Urine Nitrite Ur Leukocyte Esterase Urine RBC Urine WBC Ur Squamous Epith Cells Other Crystals Urine Bacteria Hyaline Casts Granular Casts Ethyl Alcohol Acetone, Qual COVID-19 (DEYSI) COVID-19 SMSA CRANE ACQUISITION 04/22/22 04/22/22 04/22/22 02:57 05:03 05:55 WBC RBC Hgb Hct MCV MCH MCHC RDW Plt Count MPV Immature Gran % (Auto) Neut % (Auto) Lymph % (Auto) [place] % (Auto) Eos % (Auto) Baso % (Auto) Lymph # (Auto) [place] # (Auto) Eos # (Auto) Baso # (Auto) Abs Immat Gran (auto) Absolute Neuts (auto) Absolute Nucleated RBC Nucleated RBC % (auto) O2 Saturation ABG pH at Pt Temp ABG pCO2 at Pt Temp ABG pO2 at Pt Temp ABG HCO3 ABG Base Excess (Actual) VBG pH 7.38 VBG pCO2 28 VBG pO2 78 VBG HCO3 17 L VBG O2 Saturation 96.0 VBG Base Excess -6.3 Sodium Potassium Chloride Carbon Dioxide Anion Gap BUN Creatinine Estim Creat Clear Calc Estimated GFR POC Glucose 188 H 199 H Random Glucose Fasting Glucose Estimat Average Glucose Hemoglobin A1c % Lactic Acid Calcium Phosphorus Magnesium Total Bilirubin Direct Bilirubin AST ALT Alkaline Phosphatase Troponin I High Sens Total Protein Albumin Triglycerides Cholesterol LDL Cholesterol, Calc HDL Cholesterol Lipase Urine Color Urine Appearance Urine pH Ur Specific [place] Urine Protein Urine Glucose (UA) Urine Ketones Urine Blood Urine Nitrite Ur Leukocyte Esterase Urine RBC Urine WBC Ur Squamous Epith Cells Other Crystals Urine Bacteria Hyaline Casts Granular Casts Ethyl Alcohol Acetone, Qual COVID-19 (DEYSI) COVID-19 Clin Com 04/22/22 04/22/22 04/22/22 05:59 05:59 05:59 WBC 9.7 RBC 4.96 Hgb 13.4 L Hct 40.5 L MCV 81.7 MCH 27.0 MCHC 33.1 RDW 15.1 Plt Count 230 MPV 11.1 Immature Gran % (Auto) 1.2 H Neut % (Auto) 79.4 H Lymph % (Auto) 9.4 L [place] % (Auto) 8.9 Eos % (Auto) 0.8 Baso % (Auto) 0.3 Lymph # (Auto) 0.9 L [place] # (Auto) 0.9 Eos # (Auto) 0.1 Baso # (Auto) 0.0 Abs Immat Gran (auto) 0.12 H Absolute Neuts (auto) 7.7 Absolute Nucleated RBC 0.000 Nucleated RBC % (auto) 0.0 O2 Saturation ABG pH at Pt Temp ABG pCO2 at Pt Temp ABG pO2 at Pt Temp ABG HCO3 ABG Base Excess (Actual) VBG pH VBG pCO2 VBG pO2 VBG HCO3 VBG O2 Saturation VBG Base Excess Sodium 135 135 Potassium 4.5 D 4.4 Chloride 109 H 109 H Carbon Dioxide 14 L 14 L Anion Gap 17 16 BUN 16 16 Creatinine 1.14 1.14 Estim Creat Clear Calc 100.0 100.0 Estimated GFR > 60 > 60 POC Glucose Random Glucose 178 H Fasting Glucose 176 H Estimat Average Glucose Hemoglobin A1c % Lactic Acid Calcium 8.0 L 7.9 L Phosphorus 2.1 L 2.1 L Magnesium 2.1 Total Bilirubin 0.3 Direct Bilirubin AST 22 ALT 23 Alkaline Phosphatase 65 Troponin I High Sens Total Protein 6.0 L Albumin 2.9 L Triglycerides 1770 Cholesterol LDL Cholesterol, Calc HDL Cholesterol Lipase 254 H Urine Color Urine Appearance Urine pH Ur Specific [place] Urine Protein Urine Glucose (UA) Urine Ketones Urine Blood Urine Nitrite Ur Leukocyte Esterase Urine RBC Urine WBC Ur Squamous Epith Cells Other Crystals Urine Bacteria Hyaline Casts Granular Casts Ethyl Alcohol Acetone, Qual COVID-19 (DEYSI) COVID-19 Clin Com 04/22/22 04/22/22 04/22/22 06:07 07:54 10:04 WBC RBC Hgb Hct MCV MCH MCHC RDW Plt Count MPV Immature Gran % (Auto) Neut % (Auto) Lymph % (Auto) [place] % (Auto) Eos % (Auto) Baso % (Auto) Lymph # (Auto) [place] # (Auto) Eos # (Auto) Baso # (Auto) Abs Immat Gran (auto) Absolute Neuts (auto) Absolute Nucleated RBC Nucleated RBC % (auto) O2 Saturation ABG pH at Pt Temp ABG pCO2 at Pt Temp ABG pO2 at Pt Temp ABG HCO3 ABG Base Excess (Actual) VBG pH VBG pCO2 VBG pO2 VBG HCO3 VBG O2 Saturation VBG Base Excess Sodium Potassium Chloride Carbon Dioxide Anion Gap BUN Creatinine Estim Creat Clear Calc Estimated GFR POC Glucose 193 H 173 H 163 H Random Glucose Fasting Glucose Estimat Average Glucose Hemoglobin A1c % Lactic Acid Calcium Phosphorus Magnesium Total Bilirubin Direct Bilirubin AST ALT Alkaline Phosphatase Troponin I High Sens Total Protein Albumin Triglycerides Cholesterol LDL Cholesterol, Calc HDL Cholesterol Lipase Urine Color Urine Appearance Urine pH Ur Specific [place] Urine Protein Urine Glucose (UA) Urine Ketones Urine Blood Urine Nitrite Ur Leukocyte Esterase Urine RBC Urine WBC Ur Squamous Epith Cells Other Crystals Urine Bacteria Hyaline Casts Granular Casts Ethyl Alcohol Acetone, Qual COVID-19 (DEYIS) COVID-19 Clin Com Progress Note: A&P Assessment and plan (1) Pancreatitis: Status: Acute (2) DKA (diabetic ketoacidosis): Status: Acute (3) Hypertriglyceridemia: Status: Acute (4) Acute kidney injury: Status: Acute (5) Diabetes mellitus: Status: Acute Plan Assessment: 36-year-old gentleman admitted with metabolic acidosis, pancreatitis with hypertriglyceridemia, diabetic ketoacidosis, and acute renal failure. Plan: Neuro: No acute issues. Cardiac: No acute issues. Pulmonary: No acute issues. Renal: Acute renal failure, likely secondary to fluid shifts secondary to pancreatitis, improving. Non oliguric. Continue to monitor renal indices and urine output. Endo: Acute pancreatitis with hypertriglyceridemia and ketoacidosis, continue on insulin drip. General surgery service care appreciated. GI: No acute issues. ID: No acute issues Heme/Onc: No acute issues. Psych: No acute issues. Miscellaneous: No acute issues. Prophylaxis: Pneumatic compression Diet: nothing by mouth Critical care time spent: 45 minutes Quality Stroke Does the patient have a stroke diagnosis?: No VTE Prior VTE?: No VTE Risk Level:: Medical - moderate - high VTE Device Contraindication: N/A - Device Ordered VTE Drug Contraindication: Treatment Not Tolerated
[2022-04-22 12:40] LABS: Glucose, Whole Blood 199 mg/dL (60-115)
--- NOTE | 2022-04-22 13:31 | PM.PNGS ---
Subjective Subjective Date of Service: 04/22/22 Interval history: Patient's abdominal symptoms have minimally improved. Denies any nausea vomiting. He passed flatus. White count has normalized and lipase is improving. Assessment/plan continue current therapy. Consider sips of liquids and advancing slowly as tolerated based on patient's clinical course. Physical Exam Vital Signs: Vital Signs: Last Vital Signs Temp 98.5 F 04/22/22 12:00 Pulse 117 H 04/22/22 13:00 Resp 31 H 04/22/22 13:00 BP 112/56 L 04/22/22 13:00 Pulse Ox 94 04/22/22 13:00 O2 Del Method 04/22/22 13:00 O2 Flow Rate 2 04/22/22 13:00 BMI result Body Mass Index 31.0 Objective Data Active Medications Dextrose (Dextrose 50 % 25 Gm/50 Ml Syringe) 25 gm IVPUSH Q30M PRN PRN Reason: Nursing Actions in Insulin Infusion Protocol Dextrose (Dextrose 50 % 25 Gm/50 Ml Syringe) 25 gm IVPUSH Q30M PRN PRN Reason: BG < 70 Fentanyl (Fentanyl Citrate/Pf 100 Mcg/2 Ml Vial) 50 mcg IVPUSH Q2H PRN; Protocol PRN Reason: Pain, Moderate (Pain Scale 4-6 Insulin Human Regular (Myxredlin) 100 unit in 100 mls @ 9 mls/hr IVCONT .Q11H7M [facility]; Protocol Last Titration: 04/22/22 12:45 Dose: 5 unit/hr, 5 mls/hr Documented By: JOHNATHON Co-signed By: GIANCARLO Dextrose/Lactated Ringer's (D5lr) 1,000 mls @ 250 mls/hr IVCONT .Q4H [facility] Last Admin: 04/22/22 10:03 Dose: 250 mls/hr Documented By: JOHNATHON Piperacillin Sod/Tazobactam (Sod 3.375 gm/ Sodium Chloride) 50 mls @ 100 mls/hr IV Q6H [facility] Last Admin: 04/22/22 13:15 Dose: 100 mls/hr Documented By: JOHNATHON Pharmacy Consult (Consult Rx Perform Med Rec) 1 each MISCELLANE ONCE PRN PRN Reason: Consult order Labs 04/22/22 05:59 04/22/22 05:59 Labs: Laboratory Results - last 24 hr 04/21/22 04/21/22 04/21/22 12:00 12:01 12:01 MCV MCH MCHC RDW Plt Count MPV Immature Gran % (Auto) Neut % (Auto) Lymph % (Auto) [place] % (Auto) Eos % (Auto) Baso % (Auto) Lymph # (Auto) [place] # (Auto) Eos # (Auto) Baso # (Auto) Abs Immat Gran (auto) Absolute Neuts (auto) Absolute Nucleated RBC Nucleated RBC % (auto) O2 Saturation ABG pH at Pt Temp ABG pCO2 at Pt Temp ABG pO2 at Pt Temp ABG HCO3 ABG Base Excess (Actual) VBG pH VBG pCO2 VBG pO2 VBG HCO3 VBG O2 Saturation VBG Base Excess Anion Gap Estim Creat Clear Calc Estimated GFR POC Glucose Random Glucose Fasting Glucose Lactic Acid Calcium Phosphorus Magnesium Total Bilirubin AST ALT Alkaline Phosphatase Troponin I High Sens < 3.5 Total Protein Albumin Triglycerides 894 Cancelled Cholesterol LDL Cholesterol, Calc HDL Cholesterol Lipase Urine Color Urine Appearance Urine pH Ur Specific [place] Urine Protein Urine Glucose (UA) Urine Ketones Urine Blood Urine Nitrite Ur Leukocyte Esterase Urine RBC Urine WBC Ur Squamous Epith Cells Other Crystals Urine Bacteria Hyaline Casts Granular Casts Ethyl Alcohol < 10 Cancelled Acetone, Qual 04/21/22 04/21/22 04/21/22 13:30 14:04 15:07 MCV MCH MCHC RDW Plt Count MPV Immature Gran % (Auto) Neut % (Auto) Lymph % (Auto) [place] % (Auto) Eos % (Auto) Baso % (Auto) Lymph # (Auto) [place] # (Auto) Eos # (Auto) Baso # (Auto) Abs Immat Gran (auto) Absolute Neuts (auto) Absolute Nucleated RBC Nucleated RBC % (auto) O2 Saturation ABG pH at Pt Temp ABG pCO2 at Pt Temp ABG pO2 at Pt Temp ABG HCO3 ABG Base Excess (Actual) VBG pH VBG pCO2 VBG pO2 VBG HCO3 VBG O2 Saturation VBG Base Excess Anion Gap Cancelled Estim Creat Clear Calc Cancelled Estimated GFR Cancelled POC Glucose Random Glucose Cancelled Fasting Glucose Lactic Acid 1.3 Calcium Cancelled Phosphorus Magnesium Total Bilirubin AST ALT Alkaline Phosphatase Troponin I High Sens Total Protein Albumin Triglycerides Cholesterol LDL Cholesterol, Calc HDL Cholesterol Lipase Urine Color Yellow Urine Appearance Cloudy Urine pH 5.0 Ur Specific [place] >= 1.030 H Urine Protein 30 (1+) H Urine Glucose (UA) >=1000 H Urine Ketones 80 Urine Blood Trace H Urine Nitrite Negative Ur Leukocyte Esterase Negative Urine RBC 0-2 Urine WBC 0-5 Ur Squamous Epith Cells 3-5 Other Crystals Present Urine Bacteria None Seen Hyaline Casts 11-20 Granular Casts Present Ethyl Alcohol Acetone, Qual 04/21/22 04/21/22 04/21/22 15:07 15:15 15:59 MCV MCH MCHC RDW Plt Count MPV Immature Gran % (Auto) Neut % (Auto) Lymph % (Auto) [place] % (Auto) Eos % (Auto) Baso % (Auto) Lymph # (Auto) [place] # (Auto) Eos # (Auto) Baso # (Auto) Abs Immat Gran (auto) Absolute Neuts (auto) Absolute Nucleated RBC Nucleated RBC % (auto) O2 Saturation ABG pH at Pt Temp ABG pCO2 at Pt Temp ABG pO2 at Pt Temp ABG HCO3 ABG Base Excess (Actual) VBG pH 7.25 L VBG pCO2 11 VBG pO2 137 VBG HCO3 5 L VBG O2 Saturation 99.0 VBG Base Excess -18.7 Anion Gap 22 H Estim Creat Clear Calc 82.6 Estimated GFR 57 POC Glucose 210 H Random Glucose Fasting Glucose 425 H* Lactic Acid Calcium 7.6 L D Phosphorus Magnesium Total Bilirubin 0.3 AST 17 ALT 18 Alkaline Phosphatase 58 Troponin I High Sens Total Protein 5.6 L Albumin 2.5 L Triglycerides 2089 Cholesterol 545 LDL Cholesterol, Calc TNP HDL Cholesterol 11 Lipase Urine Color Urine Appearance Urine pH Ur Specific [place] Urine Protein Urine Glucose (UA) Urine Ketones Urine Blood Urine Nitrite Ur Leukocyte Esterase Urine RBC Urine WBC Ur Squamous Epith Cells Other Crystals Urine Bacteria Hyaline Casts Granular Casts Ethyl Alcohol Acetone, Qual Moderate H 04/21/22 04/21/22 04/21/22 17:53 18:58 19:37 MCV MCH MCHC RDW Plt Count MPV Immature Gran % (Auto) Neut % (Auto) Lymph % (Auto) [place] % (Auto) Eos % (Auto) Baso % (Auto) Lymph # (Auto) [place] # (Auto) Eos # (Auto) Baso # (Auto) Abs Immat Gran (auto) Absolute Neuts (auto) Absolute Nucleated RBC Nucleated RBC % (auto) O2 Saturation ABG pH at Pt Temp ABG pCO2 at Pt Temp ABG pO2 at Pt Temp ABG HCO3 ABG Base Excess (Actual) VBG pH VBG pCO2 VBG pO2 VBG HCO3 VBG O2 Saturation VBG Base Excess Anion Gap 19 Estim Creat Clear Calc 66.7 Estimated GFR 45 POC Glucose 178 H 152 H Random Glucose 147 H Fasting Glucose Lactic Acid Calcium 8.2 L D Phosphorus Magnesium Total Bilirubin 0.3 AST 21 ALT 20 Alkaline Phosphatase 73 Troponin I High Sens Total Protein 6.5 Albumin 3.0 L Triglycerides Cholesterol LDL Cholesterol, Calc HDL Cholesterol Lipase Urine Color Urine Appearance Urine pH Ur Specific [place] Urine Protein Urine Glucose (UA) Urine Ketones Urine Blood Urine Nitrite Ur Leukocyte Esterase Urine RBC Urine WBC Ur Squamous Epith Cells Other Crystals Urine Bacteria Hyaline Casts Granular Casts Ethyl Alcohol Acetone, Qual 04/21/22 04/21/22 04/21/22 20:38 20:59 21:40 MCV 82.6 MCH 27.9 MCHC 33.8 RDW 15.1 Plt Count 228 MPV 11.6 Immature Gran % (Auto) 1.2 H Neut % (Auto) 74.3 H Lymph % (Auto) 11.9 L [place] % (Auto) 11.4 H Eos % (Auto) 0.9 Baso % (Auto) 0.3 Lymph # (Auto) 1.3 [place] # (Auto) 1.3 H Eos # (Auto) 0.1 Baso # (Auto) 0.0 Abs Immat Gran (auto) 0.13 H Absolute Neuts (auto) 8.3 Absolute Nucleated RBC 0.000 Nucleated RBC % (auto) 0.0 O2 Saturation ABG pH at Pt Temp ABG pCO2 at Pt Temp ABG pO2 at Pt Temp ABG HCO3 ABG Base Excess (Actual) VBG pH VBG pCO2 VBG pO2 VBG HCO3 VBG O2 Saturation VBG Base Excess Anion Gap Estim Creat Clear Calc Estimated GFR POC Glucose 152 H 178 H Random Glucose Fasting Glucose Lactic Acid Calcium Phosphorus Magnesium Total Bilirubin AST ALT Alkaline Phosphatase Troponin I High Sens Total Protein Albumin Triglycerides Cholesterol LDL Cholesterol, Calc HDL Cholesterol Lipase Urine Color Urine Appearance Urine pH Ur Specific [place] Urine Protein Urine Glucose (UA) Urine Ketones Urine Blood Urine Nitrite Ur Leukocyte Esterase Urine RBC Urine WBC Ur Squamous Epith Cells Other Crystals Urine Bacteria Hyaline Casts Granular Casts Ethyl Alcohol Acetone, Qual 04/21/22 04/21/22 04/21/22 22:30 23:33 23:50 MCV MCH MCHC RDW Plt Count MPV Immature Gran % (Auto) Neut % (Auto) Lymph % (Auto) [place] % (Auto) Eos % (Auto) Baso % (Auto) Lymph # (Auto) [place] # (Auto) Eos # (Auto) Baso # (Auto) Abs Immat Gran (auto) Absolute Neuts (auto) Absolute Nucleated RBC Nucleated RBC % (auto) O2 Saturation 96.0 ABG pH at Pt Temp 7.34 L ABG pCO2 at Pt Temp 26 L ABG pO2 at Pt Temp 86 ABG HCO3 14 L ABG Base Excess (Actual) -9.4 VBG pH VBG pCO2 VBG pO2 VBG HCO3 VBG O2 Saturation VBG Base Excess Anion Gap Estim Creat Clear Calc Estimated GFR POC Glucose 193 H 206 H Random Glucose Fasting Glucose Lactic Acid Calcium Phosphorus Magnesium Total Bilirubin AST ALT Alkaline Phosphatase Troponin I High Sens Total Protein Albumin Triglycerides Cholesterol LDL Cholesterol, Calc HDL Cholesterol Lipase Urine Color Urine Appearance Urine pH Ur Specific [place] Urine Protein Urine Glucose (UA) Urine Ketones Urine Blood Urine Nitrite Ur Leukocyte Esterase Urine RBC Urine WBC Ur Squamous Epith Cells Other Crystals Urine Bacteria Hyaline Casts Granular Casts Ethyl Alcohol Acetone, Qual 04/22/22 04/22/22 04/22/22 00:06 00:54 00:57 MCV MCH MCHC RDW Plt Count MPV Immature Gran % (Auto) Neut % (Auto) Lymph % (Auto) [place] % (Auto) Eos % (Auto) Baso % (Auto) Lymph # (Auto) [place] # (Auto) Eos # (Auto) Baso # (Auto) Abs Immat Gran (auto) Absolute Neuts (auto) Absolute Nucleated RBC Nucleated RBC % (auto) O2 Saturation ABG pH at Pt Temp ABG pCO2 at Pt Temp ABG pO2 at Pt Temp ABG HCO3 ABG Base Excess (Actual) VBG pH VBG pCO2 VBG pO2 VBG HCO3 VBG O2 Saturation VBG Base Excess Anion Gap 17 Estim Creat Clear Calc 79.2 Estimated GFR 55 POC Glucose 207 H 192 H Random Glucose 189 H Fasting Glucose Lactic Acid Calcium 7.8 L Phosphorus 1.8 L Magnesium Total Bilirubin AST ALT Alkaline Phosphatase Troponin I High Sens Total Protein Albumin Triglycerides Cholesterol LDL Cholesterol, Calc HDL Cholesterol Lipase Urine Color Urine Appearance Urine pH Ur Specific [place] Urine Protein Urine Glucose (UA) Urine Ketones Urine Blood Urine Nitrite Ur Leukocyte Esterase Urine RBC Urine WBC Ur Squamous Epith Cells Other Crystals Urine Bacteria Hyaline Casts Granular Casts Ethyl Alcohol Acetone, Qual 04/22/22 04/22/22 04/22/22 02:07 02:57 05:03 MCV MCH MCHC RDW Plt Count MPV Immature Gran % (Auto) Neut % (Auto) Lymph % (Auto) [place] % (Auto) Eos % (Auto) Baso % (Auto) Lymph # (Auto) [place] # (Auto) Eos # (Auto) Baso # (Auto) Abs Immat Gran (auto) Absolute Neuts (auto) Absolute Nucleated RBC Nucleated RBC % (auto) O2 Saturation ABG pH at Pt Temp ABG pCO2 at Pt Temp ABG pO2 at Pt Temp ABG HCO3 ABG Base Excess (Actual) VBG pH VBG pCO2 VBG pO2 VBG HCO3 VBG O2 Saturation VBG Base Excess Anion Gap Estim Creat Clear Calc Estimated GFR POC Glucose 187 H 188 H 199 H Random Glucose Fasting Glucose Lactic Acid Calcium Phosphorus Magnesium Total Bilirubin AST ALT Alkaline Phosphatase Troponin I High Sens Total Protein Albumin Triglycerides Cholesterol LDL Cholesterol, Calc HDL Cholesterol Lipase Urine Color Urine Appearance Urine pH Ur Specific [place] Urine Protein Urine Glucose (UA) Urine Ketones Urine Blood Urine Nitrite Ur Leukocyte Esterase Urine RBC Urine WBC Ur Squamous Epith Cells Other Crystals Urine Bacteria Hyaline Casts Granular Casts Ethyl Alcohol Acetone, Qual 04/22/22 04/22/22 04/22/22 05:55 05:59 05:59 MCV 81.7 MCH 27.0 MCHC 33.1 RDW 15.1 Plt Count 230 MPV 11.1 Immature Gran % (Auto) 1.2 H Neut % (Auto) 79.4 H Lymph % (Auto) 9.4 L [place] % (Auto) 8.9 Eos % (Auto) 0.8 Baso % (Auto) 0.3 Lymph # (Auto) 0.9 L [place] # (Auto) 0.9 Eos # (Auto) 0.1 Baso # (Auto) 0.0 Abs Immat Gran (auto) 0.12 H Absolute Neuts (auto) 7.7 Absolute Nucleated RBC 0.000 Nucleated RBC % (auto) 0.0 O2 Saturation ABG pH at Pt Temp ABG pCO2 at Pt Temp ABG pO2 at Pt Temp ABG HCO3 ABG Base Excess (Actual) VBG pH 7.38 VBG pCO2 28 VBG pO2 78 VBG HCO3 17 L VBG O2 Saturation 96.0 VBG Base Excess -6.3 Anion Gap 17 Estim Creat Clear Calc 100.0 Estimated GFR > 60 POC Glucose Random Glucose 178 H Fasting Glucose Lactic Acid Calcium 8.0 L Phosphorus 2.1 L Magnesium 2.1 Total Bilirubin 0.3 AST 22 ALT 23 Alkaline Phosphatase 65 Troponin I High Sens Total Protein 6.0 L Albumin 2.9 L Triglycerides 1770 Cholesterol LDL Cholesterol, Calc HDL Cholesterol Lipase 254 H Urine Color Urine Appearance Urine pH Ur Specific [place] Urine Protein Urine Glucose (UA) Urine Ketones Urine Blood Urine Nitrite Ur Leukocyte Esterase Urine RBC Urine WBC Ur Squamous Epith Cells Other Crystals Urine Bacteria Hyaline Casts Granular Casts Ethyl Alcohol Acetone, Qual 04/22/22 04/22/22 04/22/22 05:59 06:07 07:54 MCV MCH MCHC RDW Plt Count MPV Immature Gran % (Auto) Neut % (Auto) Lymph % (Auto) [place] % (Auto) Eos % (Auto) Baso % (Auto) Lymph # (Auto) [place] # (Auto) Eos # (Auto) Baso # (Auto) Abs Immat Gran (auto) Absolute Neuts (auto) Absolute Nucleated RBC Nucleated RBC % (auto) O2 Saturation ABG pH at Pt Temp ABG pCO2 at Pt Temp ABG pO2 at Pt Temp ABG HCO3 ABG Base Excess (Actual) VBG pH VBG pCO2 VBG pO2 VBG HCO3 VBG O2 Saturation VBG Base Excess Anion Gap 16 Estim Creat Clear Calc 100.0 Estimated GFR > 60 POC Glucose 193 H 173 H Random Glucose Fasting Glucose 176 H Lactic Acid Calcium 7.9 L Phosphorus 2.1 L Magnesium Total Bilirubin AST ALT Alkaline Phosphatase Troponin I High Sens Total Protein Albumin Triglycerides Cholesterol LDL Cholesterol, Calc HDL Cholesterol Lipase Urine Color Urine Appearance Urine pH Ur Specific [place] Urine Protein Urine Glucose (UA) Urine Ketones Urine Blood Urine Nitrite Ur Leukocyte Esterase Urine RBC Urine WBC Ur Squamous Epith Cells Other Crystals Urine Bacteria Hyaline Casts Granular Casts Ethyl Alcohol Acetone, Qual 04/22/22 04/22/22 10:04 11:51 MCV MCH MCHC RDW Plt Count MPV Immature Gran % (Auto) Neut % (Auto) Lymph % (Auto) [place] % (Auto) Eos % (Auto) Baso % (Auto) Lymph # (Auto) [place] # (Auto) Eos # (Auto) Baso # (Auto) Abs Immat Gran (auto) Absolute Neuts (auto) Absolute Nucleated RBC Nucleated RBC % (auto) O2 Saturation ABG pH at Pt Temp ABG pCO2 at Pt Temp ABG pO2 at Pt Temp ABG HCO3 ABG Base Excess (Actual) VBG pH VBG pCO2 VBG pO2 VBG HCO3 VBG O2 Saturation VBG Base Excess Anion Gap Estim Creat Clear Calc Estimated GFR POC Glucose 163 H 199 H Random Glucose Fasting Glucose Lactic Acid Calcium Phosphorus Magnesium Total Bilirubin AST ALT Alkaline Phosphatase Troponin I High Sens Total Protein Albumin Triglycerides Cholesterol LDL Cholesterol, Calc HDL Cholesterol Lipase Urine Color Urine Appearance Urine pH Ur Specific [place] Urine Protein Urine Glucose (UA) Urine Ketones Urine Blood Urine Nitrite Ur Leukocyte Esterase Urine RBC Urine WBC Ur Squamous Epith Cells Other Crystals Urine Bacteria Hyaline Casts Granular Casts Ethyl Alcohol Acetone, Qual Procedures Date of Service Date of Service: 04/22/22 Progress Note: A&P Time Spent With Patient Time: Total time managing care of this patient today ____ minutes. Quality Stroke Does the patient have a stroke diagnosis?: No VTE Prior VTE?: No VTE Risk Level:: Medical - moderate - high VTE Device Contraindication: N/A - Device Ordered VTE Drug Contraindication: Treatment Not Tolerated
[2022-04-22 14:06] LABS: Glucose, Whole Blood 165 mg/dL (60-115)
[2022-04-22 16:07] LABS: Glucose, Whole Blood 160 mg/dL (60-115)
[2022-04-22 18:22] LABS: Glucose, Whole Blood 157 mg/dL (60-115)
[2022-04-22 19:02] LABS: Blood Urea Nitrogen 8 mg/dL (9-16); Calcium 8.3 mg/dL (8.4-10.2); Creatinine Clr Calc Pharmacy 137.4; Estimated Glomerular Filt Rate > 60; Glucose Random 159 mg/dL (60-115)
[2022-04-22 19:18] LABS: Anion Gap 15 (12-20); Carbon Dioxide 19 mmol/L (22-29); Chloride 108 mmol/L (96-108); Potassium 3.8 mmol/L (3.3-5.1); Sodium 138 mmol/L (135-145)
[2022-04-22 20:17] LABS: Glucose, Whole Blood 174 mg/dL (60-115)
[2022-04-22 22:09] LABS: Glucose, Whole Blood 170 mg/dL (60-115)
[2022-04-23] VITALS (24 sets, daily range): BP systolic 118–154; BP diastolic 50–105; PULSE 29–135; RESP 11–35; TEMP 36.4–37.2; O2SAT 92–96
[2022-04-23 00:26] LABS: Glucose, Whole Blood 170 mg/dL (60-115)
[2022-04-23] MEDS: Dextrose 5 % and Lactated Ring 1,000 ML 250 ML IVCONT ×7 (02:11→23:37)
[2022-04-23] MEDS: Insulin Regular/NS 100 UNIT/100 ML PLAST..BAG IVCONT ×2 (02:11→21:12)
[2022-04-23] MEDS: Piperacillin Sodium/Tazobactam 3.375 GM in 0.9 % Sodium Chloride 50 ML IV ×2 (02:11→08:02)
[2022-04-23 02:20] LABS: Glucose, Whole Blood 162 mg/dL (60-115)
[2022-04-23 04:09] LABS: Glucose, Whole Blood 166 mg/dL (60-115)
[2022-04-23 05:26] LABS: VBG Base Excess 1.8 mmol/L; VBG HCO3 24 mmol/L (22-26); VBG pCO2 33 mmHg; VBG pH 7.47 (7.32-7.43); VBG pO2 59 mmHg
[2022-04-23 05:31] LABS: Venous Blood Gas Refer to POC result
[2022-04-23 05:34] LABS: MANUAL DIFF FLAG NO
[2022-04-23 05:37] LABS: Basophils Percent Auto 0.5 % (0-2); Eosinophils Absolute Auto 0.1 X10*3/uL (0.0-0.4); Eosinophils Percent Auto 1.6 % (0-4); Hematocrit 41.2 % (42.0-52.0); Hemoglobin 13.7 g/dl (14.0-18.0); Imm Gran Abs Auto 0.08 X10*3/uL (0.00-0.03); Imm Gran Pct Auto 0.9 % (0.0-0.4); Lymphocytes Absolute Auto 1.3 X10*3/uL (1.2-4.9); Lymphocytes Percent Auto 14.8 % (20-40); Mean Corpuscular HGB Conc 33.3 g/dl (31.0-36.0); Mean Corpuscular Hemoglobin 27.1 pg (27.0-33.0); Mean Corpuscular Volume 81.4 fL (80.0-98.0); Monocytes Absolute Auto 0.7 X10*3/uL (0.1-1.2); Monocytes Percent Auto 8.3 % (2-11); Neutrophils Absolute Auto 6.6 x10*3/uL (2.0-8.3); Neutrophils Percent Auto 73.9 % (45-73); Platelet Count 255 X10*3/uL (160-400); Red Blood Count 5.06 X10*6/uL (4.60-5.80); Red Cell Distribution Width 14.9 % (11.0-16.0); White Blood Count 8.9 X10*3/uL (4.8-10.8)
[2022-04-23 05:47] LABS: Glucose, Whole Blood 168 mg/dL (60-115)
[2022-04-23 05:54] LABS: Alanine Aminotransferase 26 U/L (0-40); Albumin Level 2.9 g/dL (3.5-5.0); Alkaline Phosphatase 71 U/L (39-117); Anion Gap 16 (12-20); Aspartate Amino Transferase 36 U/L (5-37); Bilirubin Total 0.5 mg/dL (0.0-1.0); Blood Urea Nitrogen 5 mg/dL (9-16); Calcium 8.3 mg/dL (8.4-10.2); Carbon Dioxide 20 mmol/L (22-29); Chloride 106 mmol/L (96-108); Creatinine Clr Calc Pharmacy 146.2; Estimated Glomerular Filt Rate > 60; Glucose Random 173 mg/dL (60-115); Lipase 162 U/L (8-78); Magnesium 1.7 mg/dL (1.6-2.6); Phosphorus 2.4 mg/dL (2.7-4.5); Potassium 3.5 mmol/L (3.3-5.1); Sodium 138 mmol/L (135-145); Total Protein 5.9 g/dL (6.5-8.0); Triglycerides 973 mg/dL
[2022-04-23 08:01] LABS: Glucose, Whole Blood 180 mg/dL (60-115)
[2022-04-23] MEDS: Potassium Phosphate/NS 15 MMOL/250 ML PLAST..BAG 62.5 MMOL IV (08:02)
[2022-04-23] MEDS: amLODIPine Besylate 5 MG TABLET PO (08:23)
--- NOTE | 2022-04-23 09:05 | PM.PNGS ---
Subjective Subjective Date of Service: 04/23/22 Interval history: Patient is seen in follow-up. He has had almost complete resolution of his abdominal symptoms. Patient is tolerating his soft diet. He had a bowel movement yesterday. Abdominal exam finds the abdomen moderately corpulent, soft, and benign . No evidence of guarding, rebound, or rigidity. Vital signs are stable. White count normalized. Lipase is downwardly trending. A/P advanced diet as tolerated. Based on the very unusual CT findings of his duodenum, consideration for outpatient follow-up with GI for possible upper endoscopy should be entertained. Physical Exam Vital Signs: Vital Signs: Last Vital Signs Temp 97.5 F 04/23/22 08:00 Pulse 110 H 04/23/22 08:00 Resp 24 H 04/23/22 08:00 BP 145/89 H 04/23/22 08:00 Pulse Ox 93 04/23/22 08:00 O2 Del Method 04/23/22 08:00 O2 Flow Rate 2 04/22/22 13:00 BMI result Body Mass Index 31.0 Objective Data Active Medications Amlodipine Besylate (Amlodipine Besylate 5 Mg Tablet) 5 mg PO DAILY [facility]; Protocol Last Admin: 04/23/22 08:23 Dose: 5 mg Documented By: MAK Dextrose (Dextrose 50 % 25 Gm/50 Ml Syringe) 25 gm IVPUSH Q30M PRN PRN Reason: Nursing Actions in Insulin Infusion Protocol Dextrose (Dextrose 50 % 25 Gm/50 Ml Syringe) 25 gm IVPUSH Q30M PRN PRN Reason: BG < 70 Fentanyl (Fentanyl Citrate/Pf 100 Mcg/2 Ml Vial) 50 mcg IVPUSH Q2H PRN; Protocol PRN Reason: Pain, Moderate (Pain Scale 4-6 Insulin Human Regular (Myxredlin) 100 unit in 100 mls @ 9 mls/hr IVCONT .Q11H7M [facility]; Protocol Last Admin: 04/23/22 08:24 Dose: Not Given Documented By: MAK Non-Admin Reason: IV Running Dextrose/Lactated Ringer's (D5lr) 1,000 mls @ 250 mls/hr IVCONT .Q4H [facility] Last Admin: 04/23/22 06:08 Dose: 250 mls/hr Documented By: BURTON Piperacillin Sod/Tazobactam (Sod 3.375 gm/ Sodium Chloride) 50 mls @ 100 mls/hr IV Q6H [facility] Last Infusion: 04/23/22 08:24 Dose: 0 mls/hr Documented By: MAK Potassium Phosphate (Kphos) 15 mmol in 250 mls @ 62.5 mls/hr IV ONCE ONE Stop: 04/23/22 11:59 Last Admin: 04/23/22 08:02 Dose: 62.5 mls/hr Documented By: MAK Pharmacy Consult (Consult Rx Perform Med Rec) 1 each MISCELLANE ONCE PRN PRN Reason: Consult order Labs 04/23/22 05:21 04/23/22 05:21 Labs: Laboratory Results - last 24 hr 04/22/22 04/22/22 04/22/22 10:04 11:51 14:02 MCV MCH MCHC RDW Plt Count MPV Immature Gran % (Auto) Neut % (Auto) Lymph % (Auto) [place] % (Auto) Eos % (Auto) Baso % (Auto) Lymph # (Auto) [place] # (Auto) Eos # (Auto) Baso # (Auto) Abs Immat Gran (auto) Absolute Neuts (auto) Absolute Nucleated RBC Nucleated RBC % (auto) VBG pH VBG pCO2 VBG pO2 VBG HCO3 VBG O2 Saturation VBG Base Excess Anion Gap Estim Creat Clear Calc Estimated GFR POC Glucose 163 H 199 H 165 H Random Glucose Calcium Phosphorus Magnesium Total Bilirubin AST ALT Alkaline Phosphatase Total Protein Albumin Triglycerides Lipase 04/22/22 04/22/22 04/22/22 16:03 18:18 18:27 MCV MCH MCHC RDW Plt Count MPV Immature Gran % (Auto) Neut % (Auto) Lymph % (Auto) [place] % (Auto) Eos % (Auto) Baso % (Auto) Lymph # (Auto) [place] # (Auto) Eos # (Auto) Baso # (Auto) Abs Immat Gran (auto) Absolute Neuts (auto) Absolute Nucleated RBC Nucleated RBC % (auto) VBG pH VBG pCO2 VBG pO2 VBG HCO3 VBG O2 Saturation VBG Base Excess Anion Gap 15 Estim Creat Clear Calc 137.4 Estimated GFR > 60 POC Glucose 160 H 157 H Random Glucose 159 H Calcium 8.3 L Phosphorus Magnesium Total Bilirubin AST ALT Alkaline Phosphatase Total Protein Albumin Triglycerides Lipase 04/22/22 04/22/22 04/23/22 20:14 22:06 00:21 MCV MCH MCHC RDW Plt Count MPV Immature Gran % (Auto) Neut % (Auto) Lymph % (Auto) [place] % (Auto) Eos % (Auto) Baso % (Auto) Lymph # (Auto) [place] # (Auto) Eos # (Auto) Baso # (Auto) Abs Immat Gran (auto) Absolute Neuts (auto) Absolute Nucleated RBC Nucleated RBC % (auto) VBG pH VBG pCO2 VBG pO2 VBG HCO3 VBG O2 Saturation VBG Base Excess Anion Gap Estim Creat Clear Calc Estimated GFR POC Glucose 174 H 170 H 170 H Random Glucose Calcium Phosphorus Magnesium Total Bilirubin AST ALT Alkaline Phosphatase Total Protein Albumin Triglycerides Lipase 04/23/22 04/23/22 04/23/22 02:14 04:05 05:19 MCV MCH MCHC RDW Plt Count MPV Immature Gran % (Auto) Neut % (Auto) Lymph % (Auto) [place] % (Auto) Eos % (Auto) Baso % (Auto) Lymph # (Auto) [place] # (Auto) Eos # (Auto) Baso # (Auto) Abs Immat Gran (auto) Absolute Neuts (auto) Absolute Nucleated RBC Nucleated RBC % (auto) VBG pH 7.47 H VBG pCO2 33 VBG pO2 59 VBG HCO3 24 VBG O2 Saturation 90.0 VBG Base Excess 1.8 Anion Gap Estim Creat Clear Calc Estimated GFR POC Glucose 162 H 166 H Random Glucose Calcium Phosphorus Magnesium Total Bilirubin AST ALT Alkaline Phosphatase Total Protein Albumin Triglycerides Lipase 04/23/22 04/23/22 04/23/22 05:21 05:21 05:44 MCV 81.4 MCH 27.1 MCHC 33.3 RDW 14.9 Plt Count 255 MPV 11.0 Immature Gran % (Auto) 0.9 H Neut % (Auto) 73.9 H Lymph % (Auto) 14.8 L [place] % (Auto) 8.3 Eos % (Auto) 1.6 Baso % (Auto) 0.5 Lymph # (Auto) 1.3 [place] # (Auto) 0.7 Eos # (Auto) 0.1 Baso # (Auto) 0.0 Abs Immat Gran (auto) 0.08 H Absolute Neuts (auto) 6.6 Absolute Nucleated RBC 0.000 Nucleated RBC % (auto) 0.0 VBG pH VBG pCO2 VBG pO2 VBG HCO3 VBG O2 Saturation VBG Base Excess Anion Gap 16 Estim Creat Clear Calc 146.2 Estimated GFR > 60 POC Glucose 168 H Random Glucose 173 H Calcium 8.3 L Phosphorus 2.4 L Magnesium 1.7 Total Bilirubin 0.5 AST 36 ALT 26 Alkaline Phosphatase 71 Total Protein 5.9 L Albumin 2.9 L Triglycerides 973 Lipase 162 H 04/23/22 07:58 MCV MCH MCHC RDW Plt Count MPV Immature Gran % (Auto) Neut % (Auto) Lymph % (Auto) [place] % (Auto) Eos % (Auto) Baso % (Auto) Lymph # (Auto) [place] # (Auto) Eos # (Auto) Baso # (Auto) Abs Immat Gran (auto) Absolute Neuts (auto) Absolute Nucleated RBC Nucleated RBC % (auto) VBG pH VBG pCO2 VBG pO2 VBG HCO3 VBG O2 Saturation VBG Base Excess Anion Gap Estim Creat Clear Calc Estimated GFR POC Glucose 180 H Random Glucose Calcium Phosphorus Magnesium Total Bilirubin AST ALT Alkaline Phosphatase Total Protein Albumin Triglycerides Lipase Microbiology Microbiology Results: Microbiology 04/21/22 13:30 Blood Culture - Preliminary Blood - Venous No growth after 24 hours. 04/21/22 13:30 Blood Culture - Preliminary Blood - Venous No growth after 24 hours. Procedures Date of Service Date of Service: 04/23/22 Progress Note: A&P Time Spent With Patient Time: Total time managing care of this patient today ____ minutes. Quality Stroke Does the patient have a stroke diagnosis?: No VTE Prior VTE?: No VTE Risk Level:: Medical - moderate - high VTE Device Contraindication: N/A - Device Ordered VTE Drug Contraindication: Treatment Not Tolerated
--- NOTE | 2022-04-23 10:09 | PM.CCPN ---
Subjective Subjective Date of Service: 04/23/22 Interval History: 36-year-old gentleman with recent diagnosis of diabetes mellitus, also [facility] and hypertension admitted on 04/21/2022 with 5 day history of slowly worsening abdominal pain. On ER evaluation metabolic acidosis with hyperglycemia and CT evidence of duodenitis, also with significantly elevated lipase and triglycerides. Elevated by General surgery with no concern for duodenal perforation at this time. Patient admitted to intensive care unit requiring insulin drip. No events overnight. Triglycerides continue to improve. Tolerating full liquids. Critical Care Time (minutes): 30 Physical Exam Vital Signs: Vital Signs: Last Vital Signs Temp 97.5 F 04/23/22 08:00 Pulse 111 H 04/23/22 09:00 Resp 28 H 04/23/22 09:00 BP 149/72 H 04/23/22 09:00 Pulse Ox 93 04/23/22 09:00 O2 Del Method 04/23/22 09:00 O2 Flow Rate 2 04/23/22 09:00 BMI result Body Mass Index 31.0 Const: General: no acute distress, alert and awake Eyes: Sclerae: sclerae normal EOM: EOMs intact bilaterally Neck: Neck: Yes no lymphadenopathy, Yes trachea midline and Yes supple Resp: Effort & Inspection: normal respiratory effort and no respiratory distress Auscultation: clear to auscultation bilaterally Cardio: Rate: tachycardic Rhythm: regular rhythm Heart sounds: no gallops, no murmurs and no rubs GI: Palpation (GI): Soft to palpation and Other GI palpation findings present ( Nontender) Auscultation: normal bowel sounds Extrem: General: Yes no pedal edema, No clubbing and No cyanosis Objective Data Labs 04/23/22 05:21 04/23/22 05:21 Labs: Laboratory Results - last 24 hr 04/22/22 04/22/22 04/22/22 10:04 11:51 14:02 WBC RBC Hgb Hct MCV MCH MCHC RDW Plt Count MPV Immature Gran % (Auto) Neut % (Auto) Lymph % (Auto) [place] % (Auto) Eos % (Auto) Baso % (Auto) Lymph # (Auto) [place] # (Auto) Eos # (Auto) Baso # (Auto) Abs Immat Gran (auto) Absolute Neuts (auto) Absolute Nucleated RBC Nucleated RBC % (auto) VBG pH VBG pCO2 VBG pO2 VBG HCO3 VBG O2 Saturation VBG Base Excess Sodium Potassium Chloride Carbon Dioxide Anion Gap BUN Creatinine Estim Creat Clear Calc Estimated GFR POC Glucose 163 H 199 H 165 H Random Glucose Calcium Phosphorus Magnesium Total Bilirubin AST ALT Alkaline Phosphatase Total Protein Albumin Triglycerides Lipase 04/22/22 04/22/22 04/22/22 16:03 18:18 18:27 WBC RBC Hgb Hct MCV MCH MCHC RDW Plt Count MPV Immature Gran % (Auto) Neut % (Auto) Lymph % (Auto) [place] % (Auto) Eos % (Auto) Baso % (Auto) Lymph # (Auto) [place] # (Auto) Eos # (Auto) Baso # (Auto) Abs Immat Gran (auto) Absolute Neuts (auto) Absolute Nucleated RBC Nucleated RBC % (auto) VBG pH VBG pCO2 VBG pO2 VBG HCO3 VBG O2 Saturation VBG Base Excess Sodium 138 Potassium 3.8 Chloride 108 Carbon Dioxide 19 L Anion Gap 15 BUN 8 L Creatinine 0.83 Estim Creat Clear Calc 137.4 Estimated GFR > 60 POC Glucose 160 H 157 H Random Glucose 159 H Calcium 8.3 L Phosphorus Magnesium Total Bilirubin AST ALT Alkaline Phosphatase Total Protein Albumin Triglycerides Lipase 04/22/22 04/22/22 04/23/22 20:14 22:06 00:21 WBC RBC Hgb Hct MCV MCH MCHC RDW Plt Count MPV Immature Gran % (Auto) Neut % (Auto) Lymph % (Auto) [place] % (Auto) Eos % (Auto) Baso % (Auto) Lymph # (Auto) [place] # (Auto) Eos # (Auto) Baso # (Auto) Abs Immat Gran (auto) Absolute Neuts (auto) Absolute Nucleated RBC Nucleated RBC % (auto) VBG pH VBG pCO2 VBG pO2 VBG HCO3 VBG O2 Saturation VBG Base Excess Sodium Potassium Chloride Carbon Dioxide Anion Gap BUN Creatinine Estim Creat Clear Calc Estimated GFR POC Glucose 174 H 170 H 170 H Random Glucose Calcium Phosphorus Magnesium Total Bilirubin AST ALT Alkaline Phosphatase Total Protein Albumin Triglycerides Lipase 04/23/22 04/23/22 04/23/22 02:14 04:05 05:19 WBC RBC Hgb Hct MCV MCH MCHC RDW Plt Count MPV Immature Gran % (Auto) Neut % (Auto) Lymph % (Auto) [place] % (Auto) Eos % (Auto) Baso % (Auto) Lymph # (Auto) [place] # (Auto) Eos # (Auto) Baso # (Auto) Abs Immat Gran (auto) Absolute Neuts (auto) Absolute Nucleated RBC Nucleated RBC % (auto) VBG pH 7.47 H VBG pCO2 33 VBG pO2 59 VBG HCO3 24 VBG O2 Saturation 90.0 VBG Base Excess 1.8 Sodium Potassium Chloride Carbon Dioxide Anion Gap BUN Creatinine Estim Creat Clear Calc Estimated GFR POC Glucose 162 H 166 H Random Glucose Calcium Phosphorus Magnesium Total Bilirubin AST ALT Alkaline Phosphatase Total Protein Albumin Triglycerides Lipase 04/23/22 04/23/22 04/23/22 05:21 05:21 05:44 WBC 8.9 RBC 5.06 Hgb 13.7 L Hct 41.2 L MCV 81.4 MCH 27.1 MCHC 33.3 RDW 14.9 Plt Count 255 MPV 11.0 Immature Gran % (Auto) 0.9 H Neut % (Auto) 73.9 H Lymph % (Auto) 14.8 L [place] % (Auto) 8.3 Eos % (Auto) 1.6 Baso % (Auto) 0.5 Lymph # (Auto) 1.3 [place] # (Auto) 0.7 Eos # (Auto) 0.1 Baso # (Auto) 0.0 Abs Immat Gran (auto) 0.08 H Absolute Neuts (auto) 6.6 Absolute Nucleated RBC 0.000 Nucleated RBC % (auto) 0.0 VBG pH VBG pCO2 VBG pO2 VBG HCO3 VBG O2 Saturation VBG Base Excess Sodium 138 Potassium 3.5 Chloride 106 Carbon Dioxide 20 L Anion Gap 16 BUN 5 L Creatinine 0.78 Estim Creat Clear Calc 146.2 Estimated GFR > 60 POC Glucose 168 H Random Glucose 173 H Calcium 8.3 L Phosphorus 2.4 L Magnesium 1.7 Total Bilirubin 0.5 AST 36 ALT 26 Alkaline Phosphatase 71 Total Protein 5.9 L Albumin 2.9 L Triglycerides 973 Lipase 162 H 04/23/22 07:58 WBC RBC Hgb Hct MCV MCH MCHC RDW Plt Count MPV Immature Gran % (Auto) Neut % (Auto) Lymph % (Auto) [place] % (Auto) Eos % (Auto) Baso % (Auto) Lymph # (Auto) [place] # (Auto) Eos # (Auto) Baso # (Auto) Abs Immat Gran (auto) Absolute Neuts (auto) Absolute Nucleated RBC Nucleated RBC % (auto) VBG pH VBG pCO2 VBG pO2 VBG HCO3 VBG O2 Saturation VBG Base Excess Sodium Potassium Chloride Carbon Dioxide Anion Gap BUN Creatinine Estim Creat Clear Calc Estimated GFR POC Glucose 180 H Random Glucose Calcium Phosphorus Magnesium Total Bilirubin AST ALT Alkaline Phosphatase Total Protein Albumin Triglycerides Lipase Microbiology Microbiology Results: Microbiology 04/21/22 13:30 Blood - Venous Blood Culture - Preliminary No growth after 24 hours. 04/21/22 13:30 Blood - Venous Blood Culture - Preliminary No growth after 24 hours. Progress Note: A&P Assessment and plan (1) Acute kidney injury: Status: Acute (2) Hypertriglyceridemia: Status: Acute (3) Pancreatitis: Status: Acute (4) Diabetes mellitus: Status: Acute Plan Assessment: 36-year-old gentleman admitted with metabolic acidosis, pancreatitis with hypertriglyceridemia, diabetic ketoacidosis, and acute renal failure. Plan: Neuro: No acute issues. Cardiac: No acute issues. Pulmonary: No acute issues. Renal: Acute renal failure, likely secondary to fluid shifts secondary to pancreatitis, resolved. Continue to monitor renal indices and urine output. Endo: Acute pancreatitis with hypertriglyceridemia and ketoacidosis, continue on insulin drip. Triglycerides improving. Start gemfibrozil. Ketoacidosis component resolved. General surgery service care appreciated. GI: No acute issues. ID: No acute issues Heme/Onc: No acute issues. Psych: No acute issues. Miscellaneous: No acute issues. Prophylaxis: heparin Diet: Full liquid Critical care time spent: 30 minutes Quality Stroke Does the patient have a stroke diagnosis?: No VTE Prior VTE?: No VTE Risk Level:: Medical - moderate - high VTE Device Contraindication: N/A - Device Ordered VTE Drug Contraindication: Treatment Not Tolerated
[2022-04-23 10:11] LABS: Glucose, Whole Blood 235 mg/dL (60-115)
[2022-04-23 11:12] LABS: Glucose, Whole Blood 231 mg/dL (60-115)
[2022-04-23 12:06] LABS: Glucose, Whole Blood 198 mg/dL (60-115)
[2022-04-23] MEDS: Heparin Sodium,Porcine 5,000 UNIT/ML VIAL 5000 UNIT SUBCUT ×2 (12:06→20:06)
[2022-04-23 12:59] LABS: Glucose, Whole Blood 190 mg/dL (60-115)
[2022-04-23 15:15] LABS: Glucose, Whole Blood 190 mg/dL (60-115)
[2022-04-23] MEDS: gemfibroziL 600 MG TABLET PO (16:55)
[2022-04-23 16:58] LABS: Glucose, Whole Blood 217 mg/dL (60-115)
[2022-04-23 18:04] LABS: Glucose, Whole Blood 242 mg/dL (60-115)
[2022-04-23 18:59] LABS: Anion Gap 16 (12-20); Blood Urea Nitrogen 4 mg/dL (9-16); Calcium 8.7 mg/dL (8.4-10.2); Carbon Dioxide 26 mmol/L (22-29); Chloride 98 mmol/L (96-108); Creatinine Clr Calc Pharmacy 150.1; Estimated Glomerular Filt Rate > 60; Glucose Random 219 mg/dL (60-115); Potassium 3.5 mmol/L (3.3-5.1); Sodium 136 mmol/L (135-145)
[2022-04-23 19:06] LABS: Glucose, Whole Blood 267 mg/dL (60-115)
[2022-04-23 20:06] LABS: Glucose, Whole Blood 226 mg/dL (60-115)
[2022-04-23] MEDS: Potassium Chloride/H20 10 MEQ/100 ML PIGGYBACK 100 MEQ IV ×4 (20:06→23:23)
[2022-04-23 21:13] LABS: Glucose, Whole Blood 191 mg/dL (60-115)
[2022-04-23 22:11] LABS: Glucose, Whole Blood 206 mg/dL (60-115)
[2022-04-23 23:33] LABS: Glucose, Whole Blood 180 mg/dL (60-115)
[2022-04-24] VITALS (25 sets, daily range): BP systolic 102–156; BP diastolic 46–107; PULSE 15–110; RESP 13–31; TEMP 36.3–36.9; O2SAT 92–96; BMI 30.5
[2022-04-24 01:23] LABS: Glucose, Whole Blood 177 mg/dL (60-115)
[2022-04-24] MEDS: Dextrose 5 % and Lactated Ring 1,000 ML 250 ML IVCONT ×2 (03:15→06:36)
[2022-04-24] MEDS: Heparin Sodium,Porcine 5,000 UNIT/ML VIAL 5000 UNIT SUBCUT ×3 (03:22→20:38)
[2022-04-24 03:27] LABS: Glucose, Whole Blood 180 mg/dL (60-115)
[2022-04-24 05:20] LABS: Glucose, Whole Blood 191 mg/dL (60-115)
[2022-04-24 05:28] LABS: VBG Base Excess 11.2 mmol/L; VBG HCO3 36 mmol/L (22-26); VBG pCO2 47 mmHg; VBG pH 7.48 (7.32-7.43); VBG pO2 34 mmHg
--- NOTE | 2022-04-24 06:17 | PC.NURSE ---
CARE ASSUMED 23:15...ALERT..ORIENTED X3...D5LR 250 CC/HR...INSULIN DRIP 6 UNITS/HR...POC GLUCOSE STABLE OVERNIGHT...NSR/S.TACH HR 90'S-100'S...VOIDING YELLOW URINE..OOB STEADY GAIT TO COMMODE FOR [employer]...RESPIRATIONS EASY...REMAINS WITH SLEEP APNEA PATTERN WHEN ASLEEP..TRANSIENT DROP IN SAO2 TO 85% AND RAPID RECOVERY TO 93-95%..ASYMPTOMATIC WHEN AWAKENED...DENIES/OFFERS NO COMPLAINTS
[2022-04-24 06:24] LABS: MANUAL DIFF FLAG NO
[2022-04-24 06:35] LABS: Basophils Absolute Auto 0.1 X10*3/uL (0.0-0.2); Basophils Percent Auto 0.8 % (0-2); Eosinophils Absolute Auto 0.2 X10*3/uL (0.0-0.4); Eosinophils Percent Auto 2.5 % (0-4); Hematocrit 44.9 % (42.0-52.0); Hemoglobin 14.7 g/dl (14.0-18.0); Imm Gran Abs Auto 0.14 X10*3/uL (0.00-0.03); Imm Gran Pct Auto 1.6 % (0.0-0.4); Lymphocytes Absolute Auto 1.8 X10*3/uL (1.2-4.9); Lymphocytes Percent Auto 21.2 % (20-40); Mean Corpuscular HGB Conc 32.7 g/dl (31.0-36.0); Mean Corpuscular Hemoglobin 26.6 pg (27.0-33.0); Mean Corpuscular Volume 81.2 fL (80.0-98.0); Mean Platelet Volume 11.3 fL (9.4-12.4); Monocytes Absolute Auto 0.8 X10*3/uL (0.1-1.2); Neutrophils Absolute Auto 5.5 x10*3/uL (2.0-8.3); Neutrophils Percent Auto 64.9 % (45-73); Platelet Count 244 X10*3/uL (160-400); Red Blood Count 5.53 X10*6/uL (4.60-5.80); Red Cell Distribution Width 14.6 % (11.0-16.0); White Blood Count 8.5 X10*3/uL (4.8-10.8)
[2022-04-24 07:13] LABS: Triglycerides 816 mg/dL
[2022-04-24 07:17] LABS: Alanine Aminotransferase 33 U/L (0-40); Albumin Level 3.2 g/dL (3.5-5.0); Alkaline Phosphatase 86 U/L (39-117); Anion Gap 16 (12-20); Aspartate Amino Transferase 49 U/L (5-37); Bilirubin Total 0.5 mg/dL (0.0-1.0); Blood Urea Nitrogen 4 mg/dL (9-16); Carbon Dioxide 28 mmol/L (22-29); Chloride 98 mmol/L (96-108); Creatinine Clr Calc Pharmacy 138.1; Estimated Glomerular Filt Rate > 60; Glucose Random 176 mg/dL (60-115); Magnesium 1.7 mg/dL (1.6-2.6); Potassium 3.9 mmol/L (3.3-5.1); Sodium 138 mmol/L (135-145); Total Protein 6.5 g/dL (6.5-8.0)
[2022-04-24 07:24] LABS: Glucose, Whole Blood 174 mg/dL (60-115)
[2022-04-24 07:46] LABS: Lipase 188 U/L (8-78)
[2022-04-24] MEDS: Potassium Chloride Packet 20 MEQ PACKET 60 MEQ PO (07:47)
[2022-04-24] MEDS: gemfibroziL 600 MG TABLET PO ×2 (07:47→17:18)
[2022-04-24] MEDS: amLODIPine Besylate 5 MG TABLET PO (07:47)
[2022-04-24 08:18] LABS: Venous Blood Gas Refer to POC result
[2022-04-24 09:01] LABS: Glucose, Whole Blood 156 mg/dL (60-115)
--- NOTE | 2022-04-24 09:15 | P.PNCC_ITS ---
Subjective Subjective Date of Service: 04/24/22 Interval History: 36-year-old gentleman with recent diagnosis of diabetes mellitus, also [facility] and hypertension admitted on 04/21/2022 with 5 day history of slowly worsening abdominal pain. On ER evaluation metabolic acidosis with hyperglycemia and CT evidence of duodenitis, also with significantly elevated lipase and triglycerides. Elevated by General surgery with no concern for duodenal perforation at this time. Patient admitted to intensive care unit requiring insulin drip. No events overnight. Triglycerides continue to improve. Tolerating diabetic diet. Critical Care Time (minutes): 30 Physical Exam Vital Signs: Vital Signs: Last Vital Signs Temp 98.4 F 04/24/22 08:00 Pulse 101 H 04/24/22 09:00 Resp 16 04/24/22 09:00 BP 156/95 H 04/24/22 09:00 Pulse Ox 94 04/24/22 09:00 O2 Del Method 04/24/22 09:00 O2 Flow Rate 2 04/23/22 13:00 BMI result Body Mass Index 30.5 Const: General: no acute distress, alert and awake Eyes: Sclerae: sclerae normal EOM: EOMs intact bilaterally Neck: Neck: Yes no lymphadenopathy, Yes trachea midline and Yes supple Resp: Effort & Inspection: normal respiratory effort and no respiratory distress Auscultation: clear to auscultation bilaterally Cardio: Rate: tachycardic Rhythm: regular rhythm Heart sounds: no gallops, no murmurs and no rubs GI: Palpation (GI): Soft to palpation and Other GI palpation findings present ( Nontender) Auscultation: normal bowel sounds Extrem: General: Yes no pedal edema, No clubbing and No cyanosis Objective Data Labs 04/24/22 05:22 04/24/22 05:21 Labs: Laboratory Results - last 24 hr 04/23/22 04/23/22 04/23/22 10:08 11:09 12:04 WBC RBC Hgb Hct MCV MCH MCHC RDW Plt Count MPV Immature Gran % (Auto) Neut % (Auto) Lymph % (Auto) [place] % (Auto) Eos % (Auto) Baso % (Auto) Lymph # (Auto) [place] # (Auto) Eos # (Auto) Baso # (Auto) Abs Immat Gran (auto) Absolute Neuts (auto) Absolute Nucleated RBC Nucleated RBC % (auto) VBG pH VBG pCO2 VBG pO2 VBG HCO3 VBG O2 Saturation VBG Base Excess Sodium Potassium Chloride Carbon Dioxide Anion Gap BUN Creatinine Estim Creat Clear Calc Estimated GFR POC Glucose 235 H 231 H 198 H Random Glucose Calcium Phosphorus Magnesium Total Bilirubin AST ALT Alkaline Phosphatase Total Protein Albumin Triglycerides Lipase 04/23/22 04/23/22 04/23/22 12:56 15:12 16:55 WBC RBC Hgb Hct MCV MCH MCHC RDW Plt Count MPV Immature Gran % (Auto) Neut % (Auto) Lymph % (Auto) [place] % (Auto) Eos % (Auto) Baso % (Auto) Lymph # (Auto) [place] # (Auto) Eos # (Auto) Baso # (Auto) Abs Immat Gran (auto) Absolute Neuts (auto) Absolute Nucleated RBC Nucleated RBC % (auto) VBG pH VBG pCO2 VBG pO2 VBG HCO3 VBG O2 Saturation VBG Base Excess Sodium Potassium Chloride Carbon Dioxide Anion Gap BUN Creatinine Estim Creat Clear Calc Estimated GFR POC Glucose 190 H 190 H 217 H Random Glucose Calcium Phosphorus Magnesium Total Bilirubin AST ALT Alkaline Phosphatase Total Protein Albumin Triglycerides Lipase 04/23/22 04/23/22 04/23/22 18:00 18:22 19:03 WBC RBC Hgb Hct MCV MCH MCHC RDW Plt Count MPV Immature Gran % (Auto) Neut % (Auto) Lymph % (Auto) [place] % (Auto) Eos % (Auto) Baso % (Auto) Lymph # (Auto) [place] # (Auto) Eos # (Auto) Baso # (Auto) Abs Immat Gran (auto) Absolute Neuts (auto) Absolute Nucleated RBC Nucleated RBC % (auto) VBG pH VBG pCO2 VBG pO2 VBG HCO3 VBG O2 Saturation VBG Base Excess Sodium 136 Potassium 3.5 Chloride 98 Carbon Dioxide 26 Anion Gap 16 BUN 4 L Creatinine 0.76 Estim Creat Clear Calc 150.1 Estimated GFR > 60 POC Glucose 242 H 267 H Random Glucose 219 H Calcium 8.7 Phosphorus Magnesium Total Bilirubin AST ALT Alkaline Phosphatase Total Protein Albumin Triglycerides Lipase 04/23/22 04/23/22 04/23/22 20:03 21:08 22:07 WBC RBC Hgb Hct MCV MCH MCHC RDW Plt Count MPV Immature Gran % (Auto) Neut % (Auto) Lymph % (Auto) [place] % (Auto) Eos % (Auto) Baso % (Auto) Lymph # (Auto) [place] # (Auto) Eos # (Auto) Baso # (Auto) Abs Immat Gran (auto) Absolute Neuts (auto) Absolute Nucleated RBC Nucleated RBC % (auto) VBG pH VBG pCO2 VBG pO2 VBG HCO3 VBG O2 Saturation VBG Base Excess Sodium Potassium Chloride Carbon Dioxide Anion Gap BUN Creatinine Estim Creat Clear Calc Estimated GFR POC Glucose 226 H 191 H 206 H Random Glucose Calcium Phosphorus Magnesium Total Bilirubin AST ALT Alkaline Phosphatase Total Protein Albumin Triglycerides Lipase 04/23/22 04/24/22 04/24/22 23:29 01:19 03:19 WBC RBC Hgb Hct MCV MCH MCHC RDW Plt Count MPV Immature Gran % (Auto) Neut % (Auto) Lymph % (Auto) [place] % (Auto) Eos % (Auto) Baso % (Auto) Lymph # (Auto) [place] # (Auto) Eos # (Auto) Baso # (Auto) Abs Immat Gran (auto) Absolute Neuts (auto) Absolute Nucleated RBC Nucleated RBC % (auto) VBG pH VBG pCO2 VBG pO2 VBG HCO3 VBG O2 Saturation VBG Base Excess Sodium Potassium Chloride Carbon Dioxide Anion Gap BUN Creatinine Estim Creat Clear Calc Estimated GFR POC Glucose 180 H 177 H 180 H Random Glucose Calcium Phosphorus Magnesium Total Bilirubin AST ALT Alkaline Phosphatase Total Protein Albumin Triglycerides Lipase 04/24/22 04/24/22 04/24/22 05:16 05:20 05:21 WBC RBC Hgb Hct MCV MCH MCHC RDW Plt Count MPV Immature Gran % (Auto) Neut % (Auto) Lymph % (Auto) [place] % (Auto) Eos % (Auto) Baso % (Auto) Lymph # (Auto) [place] # (Auto) Eos # (Auto) Baso # (Auto) Abs Immat Gran (auto) Absolute Neuts (auto) Absolute Nucleated RBC Nucleated RBC % (auto) VBG pH 7.48 H VBG pCO2 47 VBG pO2 34 VBG HCO3 36 H VBG O2 Saturation 52.0 VBG Base Excess 11.2 Sodium 138 Potassium 3.9 Chloride 98 Carbon Dioxide 28 Anion Gap 16 BUN 4 L Creatinine 0.82 Estim Creat Clear Calc 138.1 Estimated GFR > 60 POC Glucose 191 H Random Glucose 176 H Calcium 9.0 Phosphorus 4.0 Magnesium 1.7 Total Bilirubin 0.5 AST 49 H ALT 33 Alkaline Phosphatase 86 Total Protein 6.5 Albumin 3.2 L Triglycerides Lipase 188 H 04/24/22 04/24/22 04/24/22 05:21 05:22 07:20 WBC 8.5 RBC 5.53 Hgb 14.7 Hct 44.9 MCV 81.2 MCH 26.6 L MCHC 32.7 RDW 14.6 Plt Count 244 MPV 11.3 Immature Gran % (Auto) 1.6 H Neut % (Auto) 64.9 Lymph % (Auto) 21.2 [place] % (Auto) 9.0 Eos % (Auto) 2.5 Baso % (Auto) 0.8 Lymph # (Auto) 1.8 [place] # (Auto) 0.8 Eos # (Auto) 0.2 Baso # (Auto) 0.1 Abs Immat Gran (auto) 0.14 H Absolute Neuts (auto) 5.5 Absolute Nucleated RBC 0.000 Nucleated RBC % (auto) 0.0 VBG pH VBG pCO2 VBG pO2 VBG HCO3 VBG O2 Saturation VBG Base Excess Sodium Potassium Chloride Carbon Dioxide Anion Gap BUN Creatinine Estim Creat Clear Calc Estimated GFR POC Glucose 174 H Random Glucose Calcium Phosphorus Magnesium Total Bilirubin AST ALT Alkaline Phosphatase Total Protein Albumin Triglycerides 816 Lipase 04/24/22 08:57 WBC RBC Hgb Hct MCV MCH MCHC RDW Plt Count MPV Immature Gran % (Auto) Neut % (Auto) Lymph % (Auto) [place] % (Auto) Eos % (Auto) Baso % (Auto) Lymph # (Auto) [place] # (Auto) Eos # (Auto) Baso # (Auto) Abs Immat Gran (auto) Absolute Neuts (auto) Absolute Nucleated RBC Nucleated RBC % (auto) VBG pH VBG pCO2 VBG pO2 VBG HCO3 VBG O2 Saturation VBG Base Excess Sodium Potassium Chloride Carbon Dioxide Anion Gap BUN Creatinine Estim Creat Clear Calc Estimated GFR POC Glucose 156 H Random Glucose Calcium Phosphorus Magnesium Total Bilirubin AST ALT Alkaline Phosphatase Total Protein Albumin Triglycerides Lipase Microbiology Microbiology Results: Microbiology 04/21/22 13:30 Blood - Venous Blood Culture - Preliminary No growth after 48 hours. 04/21/22 13:30 Blood - Venous Blood Culture - Preliminary No growth after 48 hours. Progress Note: A&P Assessment and plan (1) Hypertriglyceridemia: Status: Acute (2) Pancreatitis: Status: Acute Assessment and Plan: Assessment: 36-year-old gentleman admitted with metabolic acidosis, pancreatitis with hypertriglyceridemia, diabetic ketoacidosis, and acute renal failure. Plan: Neuro: No acute issues. Cardiac: No acute issues. Pulmonary: No acute issues. Renal: Acute renal failure, likely secondary to fluid shifts secondary to pancreatitis, resolved. Continue to monitor renal indices and urine output. Endo: Acute pancreatitis with hypertriglyceridemia and ketoacidosis, continue on insulin drip. Triglycerides slowly improving. Continue gemfibrozil. Ketoacidosis component resolved. General surgery service care appreciated. GI: No acute issues. ID: No acute issues Heme/Onc: No acute issues. Psych: No acute issues. Miscellaneous: No acute issues. Prophylaxis: heparin Diet: Diabetic Critical care time spent: 30 minutes Quality Stroke Does the patient have a stroke diagnosis?: No VTE Prior VTE?: No VTE Risk Level:: Medical - moderate - high VTE Device Contraindication: N/A - Device Ordered VTE Drug Contraindication: Treatment Not Tolerated
[2022-04-24 11:01] LABS: Glucose, Whole Blood 176 mg/dL (60-115)
[2022-04-24 12:13] LABS: Glucose, Whole Blood 195 mg/dL (60-115)
[2022-04-24 13:08] LABS: Glucose, Whole Blood 189 mg/dL (60-115)
[2022-04-24] MEDS: Insulin Regular/NS 100 UNIT/100 ML PLAST..BAG 8 UNIT IVCONT (13:29)
[2022-04-24] MEDS: Dextrose 5 % and Lactated Ring 1,000 ML 100 ML IVCONT ×2 (15:01→23:41)
[2022-04-24 15:02] LABS: Glucose, Whole Blood 183 mg/dL (60-115)
[2022-04-24] MEDS: fentaNYL citrate/PF 100 MCG/2 ML VIAL 50 MCG IVPUSH ×3 (15:02→23:51)
[2022-04-24 16:58] LABS: Glucose, Whole Blood 175 mg/dL (60-115)
[2022-04-24 18:37] LABS: Anion Gap 16 (12-20); Blood Urea Nitrogen 7 mg/dL (9-16); Calcium 9.3 mg/dL (8.4-10.2); Carbon Dioxide 29 mmol/L (22-29); Chloride 97 mmol/L (96-108); Creatinine Clr Calc Pharmacy 138.1; Estimated Glomerular Filt Rate > 60; Glucose Random 186 mg/dL (60-115); Lipase 181 U/L (8-78); Potassium 4.7 mmol/L (3.3-5.1); Sodium 137 mmol/L (135-145); Triglycerides 865 mg/dL
[2022-04-24 19:03] LABS: Glucose, Whole Blood 210 mg/dL (60-115)
[2022-04-24 20:09] LABS: Glucose, Whole Blood 198 mg/dL (60-115)
[2022-04-24] MEDS: Throat Lozenge, Medicated LOZENGE 1 LOZENGE MUCOUS MEM (20:37)
[2022-04-24] MEDS: iohexoL 350 MG/ML 100 ML INFUS..BTL IV (21:04)
[2022-04-24 21:20] LABS: Glucose, Whole Blood 188 mg/dL (60-115)
[2022-04-24 22:06] LABS: Glucose, Whole Blood 178 mg/dL (60-115)
--- NOTE | 2022-04-24 22:09 | PM.EVENT ---
Event Note Date of Service: 04/24/22 Event Note: Today,? patient was complaining of worsening abdominal pain,? triglycerides? and lipase? increasing. He is hemodynamically stable.? New CT with IV contrast obtained: Severe inflammatory process centered around the second and third portion of the duodenum. The pancreas appears normal. Findings remain suspicious for a ruptured duodenal ulcer. Surgery was consulted, Dr Jacobson in to see patient, clinical abdominal exam is not consistent with a perforated viscus. Advice for diet to be NPO. Surgery will continue to follow up? GI consult in the am, for possible scope Time Spent With Patient Time: Total time managing care of this patient today ____ minutes.
[2022-04-24] MEDS: Pantoprazole Sodium 40 MG/10 ML VIAL IVPUSH (22:25)
--- NOTE | 2022-04-24 22:33 | PC.NURSE ---
Upon initial assessment at 1900- pt A&Ox4, calm/cooperative, [place]. Afebrile. NSR/ST on tele, HR 90-100s. BP WNL. Saturating well on room air. Insulin gtt titrated per APR. Tolerating clear liquid diet. Endorses 5/10 abd pain, medicated with PRN fentanyl with some effect. New order for CT scan, completed without incident. Pt aware of results. New consult for general surgery. Started on IV PPI. Skin intact, repositions self in bed. Bed locked in lowest position, call hanson in reach.
[2022-04-24 22:55] LABS: Glucose, Whole Blood 159 mg/dL (60-115)
--- NOTE | 2022-04-24 23:03 | PM.PNGS ---
Subjective Subjective Date of Service: 04/24/22 Interval history: Patient was fine earlier today but then noted increased abdominal pain in the right flank later today after eating pork and mashed potatoes. Triglycerides also noted to have increased. A repeat CT abdomen again noted inflammation of the duodenum with fluid surrounding suggestive of a perforated duodenal ulcer. Physical Exam Vital Signs: Vital Signs: Last Vital Signs Temp 98.1 F 04/24/22 20:00 Pulse 102 H 04/24/22 22:00 Resp 20 04/24/22 22:00 BP 137/75 04/24/22 22:00 Pulse Ox 93 04/24/22 22:00 O2 Del Method 04/24/22 22:00 O2 Flow Rate 2 04/23/22 13:00 BMI result Body Mass Index 30.5 Const: Other: appears comfortable, talking on the phone in no distress, oriented x 3 Resp: Other: Comfortable respirations breathing normally on room air. GI: Other: Soft in all 4 quadrants without rebound, guarding, or rigidity. No palpable mass. No tympany to percussion. Skin: Other: Warm, dry, no rash Extrem: Other: no peripheral edema Objective Data Active Medications Amlodipine Besylate (Amlodipine Besylate 5 Mg Tablet) 5 mg PO DAILY [facility]; Protocol Last Admin: 04/24/22 07:47 Dose: 5 mg Documented By: GAURANG Benzocaine (Throat Lozenge, Medicated Lozenge) 1 lozenge MUCOUS MEM Q2H PRN PRN Reason: Sore Throat Last Admin: 04/24/22 20:37 Dose: 1 lozenge Documented By: BURTON Dextrose (Dextrose 50 % 25 Gm/50 Ml Syringe) 25 gm IVPUSH Q30M PRN PRN Reason: Nursing Actions in Insulin Infusion Protocol Dextrose (Dextrose 50 % 25 Gm/50 Ml Syringe) 25 gm IVPUSH Q30M PRN PRN Reason: BG < 70 Fentanyl (Fentanyl Citrate/Pf 100 Mcg/2 Ml Vial) 50 mcg IVPUSH Q2H PRN; Protocol PRN Reason: Pain, Moderate (Pain Scale 4-6 Last Admin: 04/24/22 20:37 Dose: 50 mcg Documented By: BURTON Gemfibrozil (Gemfibrozil 600 Mg Tablet) 600 mg PO BIDAC [facility] Last Admin: 04/24/22 17:18 Dose: 600 mg Documented By: GAURANG Heparin Sodium (Porcine) (Heparin Sodium,Porcine 5,000 Unit/Ml Vial) 5,000 unit SUBCUT Q8H [facility] Last Admin: 04/24/22 20:38 Dose: 5,000 unit Documented By: BURTON Insulin Human Regular (Myxredlin) 100 unit in 100 mls @ 9 mls/hr IVCONT .Q11H7M [facility]; Protocol Last Titration: 04/24/22 22:59 Dose: 8 unit/hr, 8 mls/hr Documented By: BURTON Co-signed By: RANJAN Dextrose/Lactated Ringer's (D5lr) 1,000 mls @ 100 mls/hr IVCONT .Q10H [facility] Last Admin: 04/24/22 15:01 Dose: 100 mls/hr Documented By: GAURANG Pantoprazole Sodium (Pantoprazole Sodium 40 Mg/10 Ml Vial) 40 mg IVPUSH BID@0630,1630 [facility] Last Admin: 04/24/22 22:25 Dose: 40 mg Documented By: BURTON Pharmacy Consult (Consult Rx Perform Med Rec) 1 each MISCELLANE ONCE PRN PRN Reason: Consult order Labs 04/24/22 05:22 04/24/22 18:00 Labs: Laboratory Results - last 24 hr 04/23/22 04/24/22 04/24/22 23:29 01:19 03:19 MCV MCH MCHC RDW Plt Count MPV Immature Gran % (Auto) Neut % (Auto) Lymph % (Auto) [place] % (Auto) Eos % (Auto) Baso % (Auto) Lymph # (Auto) [place] # (Auto) Eos # (Auto) Baso # (Auto) Abs Immat Gran (auto) Absolute Neuts (auto) Absolute Nucleated RBC Nucleated RBC % (auto) VBG pH VBG pCO2 VBG pO2 VBG HCO3 VBG O2 Saturation VBG Base Excess Anion Gap Estim Creat Clear Calc Estimated GFR POC Glucose 180 H 177 H 180 H Random Glucose Calcium Phosphorus Magnesium Total Bilirubin AST ALT Alkaline Phosphatase Total Protein Albumin Triglycerides Lipase 04/24/22 04/24/22 04/24/22 05:16 05:20 05:21 MCV MCH MCHC RDW Plt Count MPV Immature Gran % (Auto) Neut % (Auto) Lymph % (Auto) [place] % (Auto) Eos % (Auto) Baso % (Auto) Lymph # (Auto) [place] # (Auto) Eos # (Auto) Baso # (Auto) Abs Immat Gran (auto) Absolute Neuts (auto) Absolute Nucleated RBC Nucleated RBC % (auto) VBG pH 7.48 H VBG pCO2 47 VBG pO2 34 VBG HCO3 36 H VBG O2 Saturation 52.0 VBG Base Excess 11.2 Anion Gap 16 Estim Creat Clear Calc 138.1 Estimated GFR > 60 POC Glucose 191 H Random Glucose 176 H Calcium 9.0 Phosphorus 4.0 Magnesium 1.7 Total Bilirubin 0.5 AST 49 H ALT 33 Alkaline Phosphatase 86 Total Protein 6.5 Albumin 3.2 L Triglycerides Lipase 188 H 04/24/22 04/24/22 04/24/22 05:21 05:22 07:20 MCV 81.2 MCH 26.6 L MCHC 32.7 RDW 14.6 Plt Count 244 MPV 11.3 Immature Gran % (Auto) 1.6 H Neut % (Auto) 64.9 Lymph % (Auto) 21.2 [place] % (Auto) 9.0 Eos % (Auto) 2.5 Baso % (Auto) 0.8 Lymph # (Auto) 1.8 [place] # (Auto) 0.8 Eos # (Auto) 0.2 Baso # (Auto) 0.1 Abs Immat Gran (auto) 0.14 H Absolute Neuts (auto) 5.5 Absolute Nucleated RBC 0.000 Nucleated RBC % (auto) 0.0 VBG pH VBG pCO2 VBG pO2 VBG HCO3 VBG O2 Saturation VBG Base Excess Anion Gap Estim Creat Clear Calc Estimated GFR POC Glucose 174 H Random Glucose Calcium Phosphorus Magnesium Total Bilirubin AST ALT Alkaline Phosphatase Total Protein Albumin Triglycerides 816 Lipase 04/24/22 04/24/22 04/24/22 08:57 10:58 12:06 MCV MCH MCHC RDW Plt Count MPV Immature Gran % (Auto) Neut % (Auto) Lymph % (Auto) [place] % (Auto) Eos % (Auto) Baso % (Auto) Lymph # (Auto) [place] # (Auto) Eos # (Auto) Baso # (Auto) Abs Immat Gran (auto) Absolute Neuts (auto) Absolute Nucleated RBC Nucleated RBC % (auto) VBG pH VBG pCO2 VBG pO2 VBG HCO3 VBG O2 Saturation VBG Base Excess Anion Gap Estim Creat Clear Calc Estimated GFR POC Glucose 156 H 176 H 195 H Random Glucose Calcium Phosphorus Magnesium Total Bilirubin AST ALT Alkaline Phosphatase Total Protein Albumin Triglycerides Lipase 04/24/22 04/24/22 04/24/22 13:04 14:58 16:54 MCV MCH MCHC RDW Plt Count MPV Immature Gran % (Auto) Neut % (Auto) Lymph % (Auto) [place] % (Auto) Eos % (Auto) Baso % (Auto) Lymph # (Auto) [place] # (Auto) Eos # (Auto) Baso # (Auto) Abs Immat Gran (auto) Absolute Neuts (auto) Absolute Nucleated RBC Nucleated RBC % (auto) VBG pH VBG pCO2 VBG pO2 VBG HCO3 VBG O2 Saturation VBG Base Excess Anion Gap Estim Creat Clear Calc Estimated GFR POC Glucose 189 H 183 H 175 H Random Glucose Calcium Phosphorus Magnesium Total Bilirubin AST ALT Alkaline Phosphatase Total Protein Albumin Triglycerides Lipase 04/24/22 04/24/22 04/24/22 18:00 18:58 20:06 MCV MCH MCHC RDW Plt Count MPV Immature Gran % (Auto) Neut % (Auto) Lymph % (Auto) [place] % (Auto) Eos % (Auto) Baso % (Auto) Lymph # (Auto) [place] # (Auto) Eos # (Auto) Baso # (Auto) Abs Immat Gran (auto) Absolute Neuts (auto) Absolute Nucleated RBC Nucleated RBC % (auto) VBG pH VBG pCO2 VBG pO2 VBG HCO3 VBG O2 Saturation VBG Base Excess Anion Gap 16 Estim Creat Clear Calc 138.1 Estimated GFR > 60 POC Glucose 210 H 198 H Random Glucose 186 H Calcium 9.3 Phosphorus Magnesium Total Bilirubin AST ALT Alkaline Phosphatase Total Protein Albumin Triglycerides 865 Lipase 181 H 04/24/22 04/24/22 04/24/22 21:16 22:02 22:52 MCV MCH MCHC RDW Plt Count MPV Immature Gran % (Auto) Neut % (Auto) Lymph % (Auto) [place] % (Auto) Eos % (Auto) Baso % (Auto) Lymph # (Auto) [place] # (Auto) Eos # (Auto) Baso # (Auto) Abs Immat Gran (auto) Absolute Neuts (auto) Absolute Nucleated RBC Nucleated RBC % (auto) VBG pH VBG pCO2 VBG pO2 VBG HCO3 VBG O2 Saturation VBG Base Excess Anion Gap Estim Creat Clear Calc Estimated GFR POC Glucose 188 H 178 H 159 H Random Glucose Calcium Phosphorus Magnesium Total Bilirubin AST ALT Alkaline Phosphatase Total Protein Albumin Triglycerides Lipase Imaging CT scan - abdomen: Radiologist's impression: Impressions Abdomen/Pelvis CT 04/24/22 21:05 IMPRESSION: 1. Severe inflammatory process centered around the second and third portion of the duodenum. The pancreas appears normal. Findings remain suspicious for a ruptured duodenal ulcer. Another possibility would be pancreatitis related to ectopic pancreas in the duodenum, which would be rare. GI consultation and endoscopy may be useful for further evaluation 2. Markedly enlarged fatty liver. Fleischner guidelines were followed. This critical result was discussed with Rimma Tejeda NP at 10:00 PM on the day of the exam and it was ascertained that the content and urgency of the report was understood at the time of direct communication. Procedures Date of Service Date of Service: 04/24/22 Progress Note: A&P Assessment and plan (1) Abdominal pain: Status: Acute (2) Pancreatitis: Status: Acute (3) Diabetes mellitus: Status: Acute (4) Hypertriglyceridemia: Status: Acute Plan 36-year-old male patient, newly diagnosed diabetic with abdominal pain mainly in the right upper quadrant and elevated triglyceride levels. Patient worsening of pain after eating dinner tonight and repeat CT indicated inflammation surrounding the duodenum with a fluid collection suggestive of a perforated duodenal ulcer. On examination the patient has a benign abdomen with no peritoneal signs. My review the CT reveals no free air and a slight increase fluid collection surrounding the duodenal sweep as can be seen with pancreatitis. Laboratories revealed a normal WBC which would be unusual for perforated duodenal ulcer. Recommend keeping patient NPO overnight . If his pain continues to increase, nasogastric tube decompression may be required. At this point he appears very comfortable and no surgical intervention would be recommended. GI consultation in a.m.. Time Spent With Patient Time: Total time managing care of this patient today ____ minutes. Quality Stroke Does the patient have a stroke diagnosis?: No VTE Prior VTE?: No VTE Risk Level:: Medical - moderate - high VTE Device Contraindication: N/A - Device Ordered VTE Drug Contraindication: Treatment Not Tolerated
[2022-04-24] MEDS: Insulin Regular/NS 100 UNIT/100 ML PLAST..BAG IVCONT (23:51)
[2022-04-24 23:55] LABS: Glucose, Whole Blood 143 mg/dL (60-115)
[2022-04-25] VITALS (23 sets, daily range): BP systolic 124–156; BP diastolic 73–103; PULSE 94–111; RESP 13–29; TEMP 36.1–37; O2SAT 91–96; BMI 31.3
[2022-04-25 01:09] LABS: Glucose, Whole Blood 161 mg/dL (60-115)
[2022-04-25 02:08] LABS: Glucose, Whole Blood 182 mg/dL (60-115)
[2022-04-25] MEDS: fentaNYL citrate/PF 100 MCG/2 ML VIAL 50 MCG IVPUSH (02:10)
[2022-04-25] MEDS: Heparin Sodium,Porcine 5,000 UNIT/ML VIAL 5000 UNIT SUBCUT ×3 (03:26→20:16)
[2022-04-25 04:06] LABS: Glucose, Whole Blood 191 mg/dL (60-115)
[2022-04-25 05:23] LABS: Glucose, Whole Blood 188 mg/dL (60-115)
[2022-04-25] MEDS: Pantoprazole Sodium 40 MG/10 ML VIAL IVPUSH ×2 (05:30→17:14)
[2022-04-25 05:46] LABS: VBG Base Excess 9.5 mmol/L; VBG HCO3 34 mmol/L (22-26); VBG pCO2 44 mmHg; VBG pH 7.49 (7.32-7.43); VBG pO2 54 mmHg
[2022-04-25 06:45] LABS: MANUAL DIFF FLAG NO
[2022-04-25 06:49] LABS: Basophils Absolute Auto 0.1 X10*3/uL (0.0-0.2); Eosinophils Absolute Auto 0.3 X10*3/uL (0.0-0.4); Eosinophils Percent Auto 2.9 % (0-4); Hematocrit 45.6 % (42.0-52.0); Imm Gran Abs Auto 0.41 X10*3/uL (0.00-0.03); Imm Gran Pct Auto 4.5 % (0.0-0.4); Lymphocytes Absolute Auto 1.3 X10*3/uL (1.2-4.9); Lymphocytes Percent Auto 14.4 % (20-40); Mean Corpuscular HGB Conc 32.9 g/dl (31.0-36.0); Mean Corpuscular Hemoglobin 26.7 pg (27.0-33.0); Mean Corpuscular Volume 81.1 fL (80.0-98.0); Mean Platelet Volume 11.5 fL (9.4-12.4); Monocytes Absolute Auto 0.9 X10*3/uL (0.1-1.2); Monocytes Percent Auto 9.6 % (2-11); Neutrophils Absolute Auto 6.1 x10*3/uL (2.0-8.3); Neutrophils Percent Auto 67.6 % (45-73); Platelet Count 288 X10*3/uL (160-400); Red Blood Count 5.62 X10*6/uL (4.60-5.80); Red Cell Distribution Width 14.4 % (11.0-16.0)
[2022-04-25 07:52] LABS: Alanine Aminotransferase 39 U/L (0-40); Albumin Level 3.2 g/dL (3.5-5.0); Alkaline Phosphatase 87 U/L (39-117); Anion Gap 14 (12-20); Aspartate Amino Transferase 49 U/L (5-37); Bilirubin Total 0.5 mg/dL (0.0-1.0); Blood Urea Nitrogen 9 mg/dL (9-16); Carbon Dioxide 27 mmol/L (22-29); Chloride 99 mmol/L (96-108); Estimated Glomerular Filt Rate > 60; Glucose Random 163 mg/dL (60-115); Lipase 153 U/L (8-78); Magnesium 1.7 mg/dL (1.6-2.6); Phosphorus 4.2 mg/dL (2.7-4.5); Potassium 4.2 mmol/L (3.3-5.1); Sodium 136 mmol/L (135-145); Total Protein 6.6 g/dL (6.5-8.0); Triglycerides 740 mg/dL
[2022-04-25 07:59] LABS: Glucose, Whole Blood 165 mg/dL (60-115)
--- NOTE | 2022-04-25 08:34 | PM.PNGS ---
Subjective Subjective Date of Service: 04/25/22 Interval history: Need some pain medication during the night because of right upper quadrant abdominal pain. Pain is better than this morning. Denies nausea or vomiting. Denies pain with motion. Physical Exam Vital Signs: Vital Signs: Last Vital Signs Temp 97.0 F 04/25/22 08:00 Pulse 98 04/25/22 08:00 Resp 29 H 04/25/22 08:00 BP 152/99 H 04/25/22 08:00 Pulse Ox 92 04/25/22 08:00 O2 Del Method 04/25/22 08:00 O2 Flow Rate 2 04/23/22 13:00 BMI result Body Mass Index 31.3 Const: General: no acute distress Nutritional Appearance: well nourished Orientation/consciousness: patient oriented x3 Limitations: no limitations Resp: Effort & Inspection: normal respiratory effort, no audible wheezes and no cough GI: Other: Soft, nondistended, minimal tenderness in the right flank to deep palpation. No rebound, guarding, or rigidity. Skin: Other: Warm, dry, no rash Neuro: General: patient oriented x3 Extrem: Other: No pedal edema Objective Data Active Medications Amlodipine Besylate (Amlodipine Besylate 5 Mg Tablet) 5 mg PO DAILY [facility]; Protocol Last Admin: 04/25/22 08:18 Dose: Not Given Documented By: GAURANG Non-Admin Reason: NPO Benzocaine (Throat Lozenge, Medicated Lozenge) 1 lozenge MUCOUS MEM Q2H PRN PRN Reason: Sore Throat Last Admin: 04/24/22 20:37 Dose: 1 lozenge Documented By: BURTON Dextrose (Dextrose 50 % 25 Gm/50 Ml Syringe) 25 gm IVPUSH Q30M PRN PRN Reason: Nursing Actions in Insulin Infusion Protocol Dextrose (Dextrose 50 % 25 Gm/50 Ml Syringe) 25 gm IVPUSH Q30M PRN PRN Reason: BG < 70 Fentanyl (Fentanyl Citrate/Pf 100 Mcg/2 Ml Vial) 50 mcg IVPUSH Q2H PRN; Protocol PRN Reason: Pain, Moderate (Pain Scale 4-6 Last Admin: 04/25/22 02:10 Dose: 50 mcg Documented By: RANJAN Gemfibrozil (Gemfibrozil 600 Mg Tablet) 600 mg PO BIDAC [facility] Last Admin: 04/25/22 08:18 Dose: Not Given Documented By: GAURANG Non-Admin Reason: NPO Heparin Sodium (Porcine) (Heparin Sodium,Porcine 5,000 Unit/Ml Vial) 5,000 unit SUBCUT Q8H [facility] Last Admin: 04/25/22 03:26 Dose: 5,000 unit Documented By: RANJAN Insulin Human Regular (Myxredlin) 100 unit in 100 mls @ 9 mls/hr IVCONT .Q11H7M [facility]; Protocol Last Titration: 04/25/22 08:15 Dose: 4 unit/hr, 4 mls/hr Documented By: GAURANG Co-signed By: KIM Dextrose/Lactated Ringer's (D5lr) 1,000 mls @ 100 mls/hr IVCONT .Q10H [facility] Last Admin: 04/24/22 23:41 Dose: 100 mls/hr Documented By: RANJAN Pantoprazole Sodium (Pantoprazole Sodium 40 Mg/10 Ml Vial) 40 mg IVPUSH BID@0630,1630 [facility] Last Admin: 04/25/22 05:30 Dose: 40 mg Documented By: RANJAN Pharmacy Consult (Consult Rx Perform Med Rec) 1 each MISCELLANE ONCE PRN PRN Reason: Consult order Labs 04/25/22 05:42 04/25/22 05:42 Labs: Laboratory Results - last 24 hr 04/24/22 04/24/22 04/24/22 08:57 10:58 12:06 MCV MCH MCHC RDW Plt Count MPV Immature Gran % (Auto) Neut % (Auto) Lymph % (Auto) [place] % (Auto) Eos % (Auto) Baso % (Auto) Lymph # (Auto) [place] # (Auto) Eos # (Auto) Baso # (Auto) Abs Immat Gran (auto) Absolute Neuts (auto) Absolute Nucleated RBC Nucleated RBC % (auto) VBG pH VBG pCO2 VBG pO2 VBG HCO3 VBG O2 Saturation VBG Base Excess Anion Gap Estim Creat Clear Calc Estimated GFR POC Glucose 156 H 176 H 195 H Random Glucose Calcium Phosphorus Magnesium Total Bilirubin AST ALT Alkaline Phosphatase Total Protein Albumin Triglycerides Lipase 04/24/22 04/24/22 04/24/22 13:04 14:58 16:54 MCV MCH MCHC RDW Plt Count MPV Immature Gran % (Auto) Neut % (Auto) Lymph % (Auto) [place] % (Auto) Eos % (Auto) Baso % (Auto) Lymph # (Auto) [place] # (Auto) Eos # (Auto) Baso # (Auto) Abs Immat Gran (auto) Absolute Neuts (auto) Absolute Nucleated RBC Nucleated RBC % (auto) VBG pH VBG pCO2 VBG pO2 VBG HCO3 VBG O2 Saturation VBG Base Excess Anion Gap Estim Creat Clear Calc Estimated GFR POC Glucose 189 H 183 H 175 H Random Glucose Calcium Phosphorus Magnesium Total Bilirubin AST ALT Alkaline Phosphatase Total Protein Albumin Triglycerides Lipase 04/24/22 04/24/22 04/24/22 18:00 18:58 20:06 MCV MCH MCHC RDW Plt Count MPV Immature Gran % (Auto) Neut % (Auto) Lymph % (Auto) [place] % (Auto) Eos % (Auto) Baso % (Auto) Lymph # (Auto) [place] # (Auto) Eos # (Auto) Baso # (Auto) Abs Immat Gran (auto) Absolute Neuts (auto) Absolute Nucleated RBC Nucleated RBC % (auto) VBG pH VBG pCO2 VBG pO2 VBG HCO3 VBG O2 Saturation VBG Base Excess Anion Gap 16 Estim Creat Clear Calc 138.1 Estimated GFR > 60 POC Glucose 210 H 198 H Random Glucose 186 H Calcium 9.3 Phosphorus Magnesium Total Bilirubin AST ALT Alkaline Phosphatase Total Protein Albumin Triglycerides 865 Lipase 181 H 04/24/22 04/24/22 04/24/22 21:16 22:02 22:52 MCV MCH MCHC RDW Plt Count MPV Immature Gran % (Auto) Neut % (Auto) Lymph % (Auto) [place] % (Auto) Eos % (Auto) Baso % (Auto) Lymph # (Auto) [place] # (Auto) Eos # (Auto) Baso # (Auto) Abs Immat Gran (auto) Absolute Neuts (auto) Absolute Nucleated RBC Nucleated RBC % (auto) VBG pH VBG pCO2 VBG pO2 VBG HCO3 VBG O2 Saturation VBG Base Excess Anion Gap Estim Creat Clear Calc Estimated GFR POC Glucose 188 H 178 H 159 H Random Glucose Calcium Phosphorus Magnesium Total Bilirubin AST ALT Alkaline Phosphatase Total Protein Albumin Triglycerides Lipase 04/24/22 04/25/22 04/25/22 23:46 01:05 02:02 MCV MCH MCHC RDW Plt Count MPV Immature Gran % (Auto) Neut % (Auto) Lymph % (Auto) [place] % (Auto) Eos % (Auto) Baso % (Auto) Lymph # (Auto) [place] # (Auto) Eos # (Auto) Baso # (Auto) Abs Immat Gran (auto) Absolute Neuts (auto) Absolute Nucleated RBC Nucleated RBC % (auto) VBG pH VBG pCO2 VBG pO2 VBG HCO3 VBG O2 Saturation VBG Base Excess Anion Gap Estim Creat Clear Calc Estimated GFR POC Glucose 143 H 161 H 182 H Random Glucose Calcium Phosphorus Magnesium Total Bilirubin AST ALT Alkaline Phosphatase Total Protein Albumin Triglycerides Lipase 04/25/22 04/25/22 04/25/22 04:01 05:17 05:39 MCV MCH MCHC RDW Plt Count MPV Immature Gran % (Auto) Neut % (Auto) Lymph % (Auto) [place] % (Auto) Eos % (Auto) Baso % (Auto) Lymph # (Auto) [place] # (Auto) Eos # (Auto) Baso # (Auto) Abs Immat Gran (auto) Absolute Neuts (auto) Absolute Nucleated RBC Nucleated RBC % (auto) VBG pH 7.49 H VBG pCO2 44 VBG pO2 54 VBG HCO3 34 H VBG O2 Saturation 83.0 VBG Base Excess 9.5 Anion Gap Estim Creat Clear Calc Estimated GFR POC Glucose 191 H 188 H Random Glucose Calcium Phosphorus Magnesium Total Bilirubin AST ALT Alkaline Phosphatase Total Protein Albumin Triglycerides Lipase 04/25/22 04/25/22 04/25/22 05:42 05:42 07:56 MCV 81.1 MCH 26.7 L MCHC 32.9 RDW 14.4 Plt Count 288 MPV 11.5 Immature Gran % (Auto) 4.5 H Neut % (Auto) 67.6 Lymph % (Auto) 14.4 L [place] % (Auto) 9.6 Eos % (Auto) 2.9 Baso % (Auto) 1.0 Lymph # (Auto) 1.3 [place] # (Auto) 0.9 Eos # (Auto) 0.3 Baso # (Auto) 0.1 Abs Immat Gran (auto) 0.41 H Absolute Neuts (auto) 6.1 Absolute Nucleated RBC 0.000 Nucleated RBC % (auto) 0.0 VBG pH VBG pCO2 VBG pO2 VBG HCO3 VBG O2 Saturation VBG Base Excess Anion Gap 14 Estim Creat Clear Calc 147.0 Estimated GFR > 60 POC Glucose 165 H Random Glucose 163 H Calcium 9.0 Phosphorus 4.2 Magnesium 1.7 Total Bilirubin 0.5 AST 49 H ALT 39 Alkaline Phosphatase 87 Total Protein 6.6 Albumin 3.2 L Triglycerides 740 Lipase 153 H Procedures Date of Service Date of Service: 04/25/22 Progress Note: A&P Assessment and plan (1) Abdominal pain: Status: Acute (2) Hypertriglyceridemia: Status: Acute (3) Pancreatitis: Status: Acute Plan 36-year-old male patient with right upper quadrant abdominal pain found to have area of inflammation and fluid surrounding the 2nd and 3rd portion of the duodenum possibly due to a perforation of the duodenum. CT revealed no free air although a slightly increased fluid collection around the duodenal loop. No peritoneal signs this morning to indicate free perforation. Laboratories appear improved as well. I suspect pancreatitis especially with the elevated triglycerides. Pain seemed to increase after eating pork. His symptoms remain stable, could probably restart clear liquids. Time Spent With Patient Time: Total time managing care of this patient today ____ minutes. Quality Stroke Does the patient have a stroke diagnosis?: No VTE Prior VTE?: No VTE Risk Level:: Medical - moderate - high VTE Device Contraindication: N/A - Device Ordered VTE Drug Contraindication: Treatment Not Tolerated
--- NOTE | 2022-04-25 09:03 | PM.GICN ---
History of Present Illness Data of Consult Service Date: 04/25/22 Requesting physician: Johnny Mobley Primary Care Provider: Aurelio Sellers MD HPI Reason for consult: duodenitis and panceatitis 36 yr old m with hx of DM and [facility] who i am seeing for assessment for duodenitis and abn imaging He intially noted 2 weeks of urine frequency then 1 week ago he noted 6/10 crampy right sided mid and upper quadrant pain without any relieving or exacerbating factors and no radiation. He thinsk the pain was worse with movement. Denies any nausea vomiting and no fevers or chills.? He has been having normal bowel habits. Denies alcohol use or drug use, no nsaids. Initial eval revealed severe inflammation around pancreas and duodenum and perforated ulcer was not ruled out. He was also noted to have trigs of 2000 and was commenced on inuslin drip and fibrate with reduction of trigs to 700. He feels pain has reduced but can be worse with foods now. He is passing gas but no stools. A repeat CT scan with ongoing inflammation but to my read looks improved with stranding around duodenum, and attenuated small bowel Review of Systems Review of Systems: Constitutional : No Weight loss, No Fever, No Chills ENT/Mouth : No sore throat, No Rhinorrhea Eyes: No Swelling, No Redness Cardiovascular : No Chest Pain, No SOB, No Edema Respiratory : No Cough, No Sputum, No Wheezing Gastrointestinal : see HPI Genitourinary : NO Dysuria, No Urinary Frequency, No Hematuria, No Urgency Musculoskeletal : No joint pain, No Myalgias, No Joint Swelling Skin : No Skin Lesions, No rash Neuro : No Weakness, No Numbness, No Dizziness, No Headache Psych : No Anxiety/Panic, No Depression Heme/Lymph: No Bruising, No Lymphadenopathy Endocrine : No Polyuria, No Polydipsia All other systems reviewed and are negative. [facility] Past Medical History Medical History Abdominal pain Asthma Benign essential hypertension Diabetes mellitus Gout Obesity (BMI 30-39.9) Obstructive sleep apnea Pure hypercholesterolemia Renal calculi Family History Family History Father Hypertension Stroke Mother Hypertension Maternal Grandfather Myocardial infarction Surgical History Surgical History No pertinent past surgical history Social History Social History Household Members: None Housing: Apartment Do you presently have visiting nurse or other home services: No Alcohol intake: current Alcohol intake frequency: does not drink Patient Tobacco Use Status: Never used Tobacco Second Hand Smoke Exposure: Yes service: No Current occupational status: employed Cognitive needs: No Hearing needs: No Vision needs: Yes Meds Allergies Allergy/AdvReac Type Severity Reaction Status Date / Time codeine [CODEINE] Allergy Unknown UNKNOWN Verified 04/21/22 11:47 Active Medications: Current Medications Amlodipine Besylate (Amlodipine Besylate 5 Mg Tablet) 5 mg PO DAILY ON LICENSE OF [facility]; Protocol Last Admin: 04/25/22 08:18 Dose: Not Given Benzocaine (Throat Lozenge, Medicated Lozenge) 1 lozenge MUCOUS MEM Q2H PRN PRN Reason: Sore Throat Last Admin: 04/24/22 20:37 Dose: 1 lozenge Dextrose (Dextrose 50 % 25 Gm/50 Ml Syringe) 25 gm IVPUSH Q30M PRN PRN Reason: Nursing Actions in Insulin Infusion Protocol Dextrose (Dextrose 50 % 25 Gm/50 Ml Syringe) 25 gm IVPUSH Q30M PRN PRN Reason: BG < 70 Fentanyl (Fentanyl Citrate/Pf 100 Mcg/2 Ml Vial) 50 mcg IVPUSH Q2H PRN; Protocol PRN Reason: Pain, Moderate (Pain Scale 4-6 Last Admin: 04/25/22 02:10 Dose: 50 mcg Gemfibrozil (Gemfibrozil 600 Mg Tablet) 600 mg PO BIDAC ON LICENSE OF [facility] Last Admin: 04/25/22 08:18 Dose: Not Given Heparin Sodium (Porcine) (Heparin Sodium,Porcine 5,000 Unit/Ml Vial) 5,000 unit SUBCUT Q8H ON LICENSE OF [facility] Last Admin: 04/25/22 03:26 Dose: 5,000 unit Insulin Human Regular (Myxredlin) 100 unit in 100 mls @ 9 mls/hr IVCONT .Q11H7M KLAUDIA; Protocol Last Titration: 04/25/22 08:15 Dose: 4 unit/hr, 4 mls/hr Dextrose/Lactated Ringer's (D5lr) 1,000 mls @ 100 mls/hr IVCONT .Q10H ON LICENSE OF [facility] Last Admin: 04/24/22 23:41 Dose: 100 mls/hr Pantoprazole Sodium (Pantoprazole Sodium 40 Mg/10 Ml Vial) 40 mg IVPUSH BID@0630,1630 ON LICENSE OF [facility] Last Admin: 04/25/22 05:30 Dose: 40 mg Pharmacy Consult (Consult Rx Perform Med Rec) 1 each MISCELLANE ONCE PRN PRN Reason: Consult order Home Medications Medication Instructions Recorded Confirmed Last Taken Type aspirin 81 mg tablet 81 mg PO DAILY 04/21/22 04/21/22 04/21/22 History Physical Exam Vital Signs: Vital Signs: Last Vital Signs Temp 97.0 F 04/25/22 08:00 Pulse 98 04/25/22 08:00 Resp 29 H 04/25/22 08:00 BP 152/99 H 04/25/22 08:00 Pulse Ox 92 04/25/22 08:00 O2 Del Method 04/25/22 08:00 O2 Flow Rate 2 04/23/22 13:00 BMI result Body Mass Index 31.3 EXAM: GENERAL: The patient is well developed and nontoxic. VITAL SIGNS:see workflow HEENT: Nonicteric sclerae, PERRLA, EOMI. Oropharynx clear. Moist mucous membranes. Conjunctivae appear well perfused. No thyroid mass. CHEST: Chest wall is nontender. HEART: Regular rate and rhythm without murmurs. LUNGS: Clear to auscultation bilaterally. ABDOMEN: Soft, positive bowel sounds, nontender, no organomegaly.no flank tenderness SKIN: No rash, no excessive bruising, petechiae, or purpura. NEUROLOGIC: Cranial nerves II-XII intact without motor/sensory deficit. psych: normal Const: General: no acute distress, alert and awake Nutritional Appearance: well nourished Orientation/consciousness: patient oriented x3 and Other orientation findings ( oriented) Limitations: no limitations HEENT: Head: Yes atraumatic Eyes: General: appearance normal, both eyes and all related structures Sclerae: sclerae normal EOM: EOMs intact bilaterally Neck: Neck: Yes no lymphadenopathy, Yes trachea midline and Yes supple Lymphatic: no lymphadenopathy noted Resp: Other: Comfortable respirations breathing normally on room air. Effort & Inspection: normal respiratory effort, no audible wheezes, no cough, no respiratory distress and no use of accessory muscles Auscultation: clear to auscultation bilaterally Cardio: Rate: regular rate and tachycardic Rhythm: regular rhythm Heart sounds: no gallops, no murmurs and no rubs GI: Palpation (GI): Soft to palpation, no guarding, not rigid and No Rebound tenderness present Auscultation: normal bowel sounds Skin: Other: Warm, dry, no rash General skin exam: other ( warm) Rashes: no rashes Neuro: General: patient oriented x3 Extrem: Other: No pedal edema General: Yes no pedal edema, No clubbing, No cyanosis and No edema Results Labs 04/25/22 05:42 04/25/22 05:42 Labs: Short CBC 04/25/22 Range/Units 05:42 WBC 9.0 (4.8-10.8) X10*3/uL Hgb 15.0 (14.0-18.0) g/dl Hct 45.6 (42.0-52.0) % Plt Count 288 (160-400) X10*3/uL BMP 04/24/22 04/25/22 18:00 05:42 Sodium 137 136 Potassium 4.7 D 4.2 Chloride 97 99 Carbon Dioxide 29 27 BUN 7 L 9 Creatinine 0.82 0.78 Calcium 9.3 9.0 Liver Function 04/25/22 Range/Units 05:42 Total Bilirubin 0.5 (0.0-1.0) mg/dL AST 49 H (5-37) U/L ALT 39 (0-40) U/L Alkaline Phosphatase 87 (39-117) U/L Albumin 3.2 L (3.5-5.0) g/dL Microbiology Microbiology Results: Microbiology 04/21/22 13:30 Blood - Venous Blood Culture - Preliminary No growth after 48 hours. 04/21/22 13:30 Blood - Venous Blood Culture - Preliminary No growth after [address] scan - abdomen: Attestation: I personally reviewed and interpreted this imaging study as follows: (inflammation around duodenum with stranding ) Assessment and Plan (1) Abdominal pain: Qualifiers: Abdominal location: generalized Qualified Code(s): R10.84 - Generalized abdominal pain Status: Acute (2) Hypertriglyceridemia: Status: Acute (3) Pancreatitis: Status: Acute Plan 1/ Suspect patient had pancreatitis caused by hypertriglyceridemia with secondary inflammation of surrounding bowel. Abdo exam is pretty benign and dont; really think he has had perforated ulcer. PLAN: 1/ Would hold EGD at thsi time due to higher risk of perforation, would recommend small bowel follow thru. 2/ advance diet as tolerated 3/ if Diagnostic ambiguity remains then will discuss with surgery team about an EGD 4/ would give carafate 1 g QID and PPI to reduce risk of secondary ulceration, or stress ulcers Time Spent With Patient Time: Total time managing care of this patient today ____ minutes. Procedures Date of Service Date of Service: 04/25/22
--- NOTE | 2022-04-25 09:59 | P.PNCC_ITS ---
Subjective Subjective Date of Service: 04/25/22 Interval History: 36-year-old gentleman with recent diagnosis of diabetes mellitus, also [facility] and hypertension admitted on 04/21/2022 with 5 day history of slowly worsening abdominal pain. On ER evaluation metabolic acidosis with hyperglycemia and CT evidence of duodenitis, also with significantly elevated lipase and triglycerides. Elevated by General surgery with no concern for duodenal perforation at this time. Patient admitted to intensive care unit requiring insulin drip. Overnight with worsening abdominal pain, CT abdomen / pelvis with with worsening clair-duodenal inflammation. Re-aluated by General surgery with no concern for perforated ulcer at this time. Critical Care Time (minutes): 30 Physical Exam Vital Signs: Vital Signs: Last Vital Signs Temp 97.0 F 04/25/22 08:00 Pulse 97 04/25/22 09:00 Resp 26 H 04/25/22 09:00 BP 156/100 H 04/25/22 09:00 Pulse Ox 91 L 04/25/22 09:00 O2 Del Method 04/25/22 09:00 O2 Flow Rate 2 04/23/22 13:00 BMI result Body Mass Index 31.3 Const: General: no acute distress, alert and awake Eyes: Sclerae: sclerae normal EOM: EOMs intact bilaterally Neck: Neck: Yes no lymphadenopathy, Yes trachea midline and Yes supple Resp: Effort & Inspection: normal respiratory effort and no respiratory distress Auscultation: clear to auscultation bilaterally Cardio: Rate: regular rate Rhythm: regular rhythm Heart sounds: no gallops, no murmurs and no rubs GI: Palpation (GI): Soft to palpation, no guarding, not rigid, No Rebound tenderness present and Other GI palpation findings present ( mild right upper quadrant tenderness) Auscultation: normal bowel sounds Extrem: General: Yes no pedal edema, No clubbing and No cyanosis Objective Data Labs 04/25/22 05:42 04/25/22 05:42 Labs: Laboratory Results - last 24 hr 04/24/22 04/24/22 04/24/22 10:58 12:06 13:04 WBC RBC Hgb Hct MCV MCH MCHC RDW Plt Count MPV Immature Gran % (Auto) Neut % (Auto) Lymph % (Auto) [place] % (Auto) Eos % (Auto) Baso % (Auto) Lymph # (Auto) [place] # (Auto) Eos # (Auto) Baso # (Auto) Abs Immat Gran (auto) Absolute Neuts (auto) Absolute Nucleated RBC Nucleated RBC % (auto) VBG pH VBG pCO2 VBG pO2 VBG HCO3 VBG O2 Saturation VBG Base Excess Sodium Potassium Chloride Carbon Dioxide Anion Gap BUN Creatinine Estim Creat Clear Calc Estimated GFR POC Glucose 176 H 195 H 189 H Random Glucose Calcium Phosphorus Magnesium Total Bilirubin AST ALT Alkaline Phosphatase Total Protein Albumin Triglycerides Lipase 04/24/22 04/24/22 04/24/22 14:58 16:54 18:00 WBC RBC Hgb Hct MCV MCH MCHC RDW Plt Count MPV Immature Gran % (Auto) Neut % (Auto) Lymph % (Auto) [place] % (Auto) Eos % (Auto) Baso % (Auto) Lymph # (Auto) [place] # (Auto) Eos # (Auto) Baso # (Auto) Abs Immat Gran (auto) Absolute Neuts (auto) Absolute Nucleated RBC Nucleated RBC % (auto) VBG pH VBG pCO2 VBG pO2 VBG HCO3 VBG O2 Saturation VBG Base Excess Sodium 137 Potassium 4.7 D Chloride 97 Carbon Dioxide 29 Anion Gap 16 BUN 7 L Creatinine 0.82 Estim Creat Clear Calc 138.1 Estimated GFR > 60 POC Glucose 183 H 175 H Random Glucose 186 H Calcium 9.3 Phosphorus Magnesium Total Bilirubin AST ALT Alkaline Phosphatase Total Protein Albumin Triglycerides 865 Lipase 181 H 04/24/22 04/24/22 04/24/22 18:58 20:06 21:16 WBC RBC Hgb Hct MCV MCH MCHC RDW Plt Count MPV Immature Gran % (Auto) Neut % (Auto) Lymph % (Auto) [place] % (Auto) Eos % (Auto) Baso % (Auto) Lymph # (Auto) [place] # (Auto) Eos # (Auto) Baso # (Auto) Abs Immat Gran (auto) Absolute Neuts (auto) Absolute Nucleated RBC Nucleated RBC % (auto) VBG pH VBG pCO2 VBG pO2 VBG HCO3 VBG O2 Saturation VBG Base Excess Sodium Potassium Chloride Carbon Dioxide Anion Gap BUN Creatinine Estim Creat Clear Calc Estimated GFR POC Glucose 210 H 198 H 188 H Random Glucose Calcium Phosphorus Magnesium Total Bilirubin AST ALT Alkaline Phosphatase Total Protein Albumin Triglycerides Lipase 04/24/22 04/24/22 04/24/22 22:02 22:52 23:46 WBC RBC Hgb Hct MCV MCH MCHC RDW Plt Count MPV Immature Gran % (Auto) Neut % (Auto) Lymph % (Auto) [place] % (Auto) Eos % (Auto) Baso % (Auto) Lymph # (Auto) [place] # (Auto) Eos # (Auto) Baso # (Auto) Abs Immat Gran (auto) Absolute Neuts (auto) Absolute Nucleated RBC Nucleated RBC % (auto) VBG pH VBG pCO2 VBG pO2 VBG HCO3 VBG O2 Saturation VBG Base Excess Sodium Potassium Chloride Carbon Dioxide Anion Gap BUN Creatinine Estim Creat Clear Calc Estimated GFR POC Glucose 178 H 159 H 143 H Random Glucose Calcium Phosphorus Magnesium Total Bilirubin AST ALT Alkaline Phosphatase Total Protein Albumin Triglycerides Lipase 04/25/22 04/25/22 04/25/22 01:05 02:02 04:01 WBC RBC Hgb Hct MCV MCH MCHC RDW Plt Count MPV Immature Gran % (Auto) Neut % (Auto) Lymph % (Auto) [place] % (Auto) Eos % (Auto) Baso % (Auto) Lymph # (Auto) [place] # (Auto) Eos # (Auto) Baso # (Auto) Abs Immat Gran (auto) Absolute Neuts (auto) Absolute Nucleated RBC Nucleated RBC % (auto) VBG pH VBG pCO2 VBG pO2 VBG HCO3 VBG O2 Saturation VBG Base Excess Sodium Potassium Chloride Carbon Dioxide Anion Gap BUN Creatinine Estim Creat Clear Calc Estimated GFR POC Glucose 161 H 182 H 191 H Random Glucose Calcium Phosphorus Magnesium Total Bilirubin AST ALT Alkaline Phosphatase Total Protein Albumin Triglycerides Lipase 04/25/22 04/25/22 04/25/22 05:17 05:39 05:42 WBC 9.0 RBC 5.62 Hgb 15.0 Hct 45.6 MCV 81.1 MCH 26.7 L MCHC 32.9 RDW 14.4 Plt Count 288 MPV 11.5 Immature Gran % (Auto) 4.5 H Neut % (Auto) 67.6 Lymph % (Auto) 14.4 L [place] % (Auto) 9.6 Eos % (Auto) 2.9 Baso % (Auto) 1.0 Lymph # (Auto) 1.3 [place] # (Auto) 0.9 Eos # (Auto) 0.3 Baso # (Auto) 0.1 Abs Immat Gran (auto) 0.41 H Absolute Neuts (auto) 6.1 Absolute Nucleated RBC 0.000 Nucleated RBC % (auto) 0.0 VBG pH 7.49 H VBG pCO2 44 VBG pO2 54 VBG HCO3 34 H VBG O2 Saturation 83.0 VBG Base Excess 9.5 Sodium Potassium Chloride Carbon Dioxide Anion Gap BUN Creatinine Estim Creat Clear Calc Estimated GFR POC Glucose 188 H Random Glucose Calcium Phosphorus Magnesium Total Bilirubin AST ALT Alkaline Phosphatase Total Protein Albumin Triglycerides Lipase 04/25/22 04/25/22 05:42 07:56 WBC RBC Hgb Hct MCV MCH MCHC RDW Plt Count MPV Immature Gran % (Auto) Neut % (Auto) Lymph % (Auto) [place] % (Auto) Eos % (Auto) Baso % (Auto) Lymph # (Auto) [place] # (Auto) Eos # (Auto) Baso # (Auto) Abs Immat Gran (auto) Absolute Neuts (auto) Absolute Nucleated RBC Nucleated RBC % (auto) VBG pH VBG pCO2 VBG pO2 VBG HCO3 VBG O2 Saturation VBG Base Excess Sodium 136 Potassium 4.2 Chloride 99 Carbon Dioxide 27 Anion Gap 14 BUN 9 Creatinine 0.78 Estim Creat Clear Calc 147.0 Estimated GFR > 60 POC Glucose 165 H Random Glucose 163 H Calcium 9.0 Phosphorus 4.2 Magnesium 1.7 Total Bilirubin 0.5 AST 49 H ALT 39 Alkaline Phosphatase 87 Total Protein 6.6 Albumin 3.2 L Triglycerides 740 Lipase 153 H Microbiology Microbiology Results: Microbiology 04/21/22 13:30 Blood - Venous Blood Culture - Preliminary No growth after 48 hours. 04/21/22 13:30 Blood - Venous Blood Culture - Preliminary No growth after 48 hours. Progress Note: A&P Assessment and plan (1) Hypertriglyceridemia: Status: Acute (2) Pancreatitis: Status: Acute (3) Duodenitis: Status: Acute (4) Diabetes mellitus: Status: Acute Plan Assessment: 36-year-old gentleman admitted with metabolic acidosis, pancreatitis with hypertriglyceridemia, diabetic ketoacidosis, and acute renal failure. Plan: Neuro: No acute issues. Cardiac: No acute issues. Pulmonary: No acute issues. Renal: Acute renal failure, resolved. Continue to monitor renal indices and urine output. Endo: Acute pancreatitis /duodenitis with hypertriglyceridemia and ketoacidosis, continue on insulin drip. Triglycerides slowly improving. Continue gemfibrozil. Ketoacidosis component resolved. General surgery service care appreciated. Gastroenterology evaluation for possible EGD requested. GI: No acute issues. ID: No acute issues Heme/Onc: No acute issues. Psych: No acute issues. Miscellaneous: No acute issues. Prophylaxis: heparin Diet: N.p.o. until evaluation by gastroenterology Critical care time spent: 30 minutes Quality Stroke Does the patient have a stroke diagnosis?: No VTE Prior VTE?: No VTE Risk Level:: Medical - moderate - high VTE Device Contraindication: N/A - Device Ordered VTE Drug Contraindication: Treatment Not Tolerated
[2022-04-25] MEDS: Dextrose 5 % and Lactated Ring 1,000 ML 100 ML IVCONT ×2 (11:00→20:19)
[2022-04-25 11:02] LABS: Glucose, Whole Blood 196 mg/dL (60-115)
[2022-04-25 13:05] LABS: Glucose, Whole Blood 179 mg/dL (60-115)
[2022-04-25 15:08] LABS: Glucose, Whole Blood 279 mg/dL (60-115)
[2022-04-25 16:11] LABS: Glucose, Whole Blood 211 mg/dL (60-115)
[2022-04-25 17:08] LABS: Glucose, Whole Blood 223 mg/dL (60-115)
[2022-04-25] MEDS: Insulin Regular/NS 100 UNIT/100 ML PLAST..BAG IVCONT (17:11)
[2022-04-25] MEDS: gemfibroziL 600 MG TABLET PO (17:12)
[2022-04-25 18:12] LABS: Glucose, Whole Blood 213 mg/dL (60-115)
[2022-04-25 19:30] LABS: Glucose, Whole Blood 193 mg/dL (60-115)
[2022-04-25 20:29] LABS: Glucose, Whole Blood 179 mg/dL (60-115)
[2022-04-25] MEDS: amLODIPine Besylate 5 MG TABLET PO (20:55)
[2022-04-25 21:26] LABS: Glucose, Whole Blood 261 mg/dL (60-115)
[2022-04-25 22:18] LABS: Glucose, Whole Blood 229 mg/dL (60-115)
[2022-04-25 22:54] LABS: Anion Gap 14 (12-20); Blood Urea Nitrogen 8 mg/dL (9-16); Calcium 8.8 mg/dL (8.4-10.2); Carbon Dioxide 26 mmol/L (22-29); Chloride 97 mmol/L (96-108); Creatinine Clr Calc Pharmacy 143.3; Estimated Glomerular Filt Rate > 60; Glucose Random 235 mg/dL (60-115); Potassium 4.3 mmol/L (3.3-5.1); Sodium 133 mmol/L (135-145)
[2022-04-25 23:32] LABS: Glucose, Whole Blood 207 mg/dL (60-115)
[2022-04-26] VITALS (7 sets, daily range): BP systolic 124–133; BP diastolic 60–96; PULSE 89–103; RESP 13–31; TEMP 36.5–36.9; O2SAT 92–96; BMI 31.2
[2022-04-26] MEDS: fentaNYL citrate/PF 100 MCG/2 ML VIAL 50 MCG IVPUSH (00:01)
[2022-04-26] MEDS: Throat Lozenge, Medicated LOZENGE 1 LOZENGE MUCOUS MEM (00:06)
[2022-04-26 00:34] LABS: Venous Blood Gas Refer to POC result
[2022-04-26 01:26] LABS: Glucose, Whole Blood 171 mg/dL (60-115)
[2022-04-26 02:22] LABS: Glucose, Whole Blood 171 mg/dL (60-115)
[2022-04-26] MEDS: Insulin Regular/NS 100 UNIT/100 ML PLAST..BAG IVCONT ×2 (04:00→16:05)
[2022-04-26] MEDS: Heparin Sodium,Porcine 5,000 UNIT/ML VIAL 5000 UNIT SUBCUT ×3 (04:02→18:09)
[2022-04-26 04:03] LABS: Glucose, Whole Blood 173 mg/dL (60-115)
[2022-04-26 05:12] LABS: Hematocrit 45.6 % (42.0-52.0); Mean Corpuscular HGB Conc 32.9 g/dl (31.0-36.0); Mean Corpuscular Hemoglobin 27.4 pg (27.0-33.0); Mean Corpuscular Volume 83.4 fL (80.0-98.0); Mean Platelet Volume 10.6 fL (9.4-12.4); Platelet Count 308 X10*3/uL (160-400); Red Blood Count 5.47 X10*6/uL (4.60-5.80); Red Cell Distribution Width 14.2 % (11.0-16.0); White Blood Count 9.2 X10*3/uL (4.8-10.8)
[2022-04-26 05:28] LABS: Alanine Aminotransferase 45 U/L (0-40); Albumin Level 3.1 g/dL (3.5-5.0); Alkaline Phosphatase 79 U/L (39-117); Anion Gap 15 (12-20); Aspartate Amino Transferase 61 U/L (5-37); Bilirubin Total 0.5 mg/dL (0.0-1.0); Blood Urea Nitrogen 8 mg/dL (9-16); Carbon Dioxide 25 mmol/L (22-29); Chloride 100 mmol/L (96-108); Creatinine Clr Calc Pharmacy 145.1; Estimated Glomerular Filt Rate > 60; Glucose Random 143 mg/dL (60-115); Lipase 148 U/L (8-78); Magnesium 1.7 mg/dL (1.6-2.6); Phosphorus 3.8 mg/dL (2.7-4.5); Sodium 136 mmol/L (135-145); Total Protein 6.4 g/dL (6.5-8.0); Triglycerides 661 mg/dL
[2022-04-26] MEDS: Dextrose 5 % and Lactated Ring 1,000 ML 100 ML IVCONT ×2 (05:45→14:49)
[2022-04-26 05:49] LABS: Band Neutrophils Percent 7 % (3-5); Basophils Abs Manual 0.2 X10*3/uL (0.0-0.2); Basophils Percent Manual 2 % (0-2); Eosinophils Absolute Manual 0.4 X10*3/uL (0.0-0.4); Eosinophils Percent Manual 4 % (0-4); Lymphocytes Absolute Manual 1.5 X10*3/uL (1.2-4.9); Lymphocytes Percent Manual 16 % (20-40); Metamyelocytes Absolute 0.2 X10*3/uL; Metamyelocytes Percent 2 %; Monocytes Absolute Manual 0.6 X10*3/uL (0.1-1.2); Monocytes Percent Manual 6 % (2-11); Myelocytes Absolute 0.1 X10*/uL; Myelocytes Percent 1 %; Neutrophils Absolute Manual 6.3 X10*3/uL (2.0-8.3); Neutrophils Percent Manual 62 % (45-73)
[2022-04-26 05:50] LABS: Platelet Estimate NORMAL (NORMAL); Platelet Morphology Comment NORMAL; RBC Morphology NORMAL
[2022-04-26 06:01] LABS: Glucose, Whole Blood 140 mg/dL (60-115)
[2022-04-26] MEDS: Pantoprazole Sodium 40 MG/10 ML VIAL IVPUSH ×2 (06:25→16:00)
--- NOTE | 2022-04-26 06:36 | PC.NURSE ---
PT CONTINUED ON INSULIN GTT OVERNIGHT. SEE INSULIN FLOW SHEET. CHANGES IN DRIP RATE DIRECTED BY [employer] CODING CLERK. PT TAKING CLEAR LIQUIDS PO WITHOUT ILL EFFECT. C/O RIGHT SIDE/ABD PAIN AND RECEIVED FENTANYL 50 MCG IV X1 WITH GOOD EFFECT. AFEBRILE. BP 130-150/90-LOW 100'S. PROVIDER AWARE AND AMLODIPINE ORDERED AND GIVEN WITH GOOD EFFECT. PT HAD MISSED HIS AM DOSE DUE TO BEING NPO.
[2022-04-26 07:11] LABS: Glucose, Whole Blood 183 mg/dL (60-115)
[2022-04-26 09:05] LABS: Glucose, Whole Blood 182 mg/dL (60-115)
--- NOTE | 2022-04-26 09:55 | PM.CCPN ---
Subjective Subjective Date of Service: 04/26/22 Interval History: 36-year-old gentleman with recent diagnosis of diabetes mellitus, also [facility] and hypertension admitted on 04/21/2022 with 5 day history of slowly worsening abdominal pain. On ER evaluation metabolic acidosis with hyperglycemia and CT evidence of duodenitis, also with significantly elevated lipase and triglycerides. Elevated by General surgery with no concern for duodenal perforation at this time. Patient admitted to intensive care unit requiring insulin drip. Slow improvement in triglycerides, still above 500. Repeat CT abdomen with concern for worsening duodenitis, re-evaluated by General surgery and also evaluated by Gastroenterology with no concern for viscus perforation. No events overnight. Critical Care Time (minutes): 30 Physical Exam Vital Signs: Vital Signs: Last Vital Signs Temp 97.8 F 04/26/22 08:00 Pulse 92 04/26/22 08:00 Resp 20 04/26/22 08:00 BP 124/87 04/26/22 04:00 Pulse Ox 96 04/26/22 08:00 O2 Del Method 04/26/22 08:00 O2 Flow Rate 2 04/23/22 13:00 BMI result Body Mass Index 31.2 Const: General: no acute distress, alert and awake Eyes: Sclerae: sclerae normal EOM: EOMs intact bilaterally Neck: Neck: Yes no lymphadenopathy, Yes trachea midline and Yes supple Resp: Effort & Inspection: normal respiratory effort and no respiratory distress Auscultation: clear to auscultation bilaterally Cardio: Rate: regular rate Rhythm: regular rhythm Heart sounds: no gallops, no murmurs and no rubs GI: Palpation (GI): Soft to palpation and Other GI palpation findings present ( Nontender) Auscultation: normal bowel sounds Extrem: General: Yes no pedal edema, No clubbing and No cyanosis Objective Data Labs 04/26/22 04:46 04/26/22 04:46 Labs: Laboratory Results - last 24 hr 04/25/22 04/25/22 04/25/22 10:57 13:02 15:04 WBC RBC Hgb Hct MCV MCH MCHC RDW Plt Count MPV Immature Gran % (Auto) Neut % (Auto) Lymph % (Auto) [place] % (Auto) Eos % (Auto) Baso % (Auto) Lymph # (Auto) [place] # (Auto) Eos # (Auto) Baso # (Auto) Abs Immat Gran (auto) Absolute Neuts (auto) Absolute Nucleated RBC Nucleated RBC % (auto) Neutrophils % (Manual) Band Neutrophils % Lymphocytes % (Manual) Monocytes % (Manual) Eosinophils % (Manual) Basophils % (Manual) Metamyelocytes % Myelocytes % Abs Neuts (Manual) Lymphocytes # (Manual) Monocytes # (Manual) Eosinophils # (Manual) Basophils # (Manual) Metamyelocytes # Myelocytes # Platelet Estimate Plt Morphology Comment RBC Morphology Sodium Potassium Chloride Carbon Dioxide Anion Gap BUN Creatinine Estim Creat Clear Calc Estimated GFR POC Glucose 196 H 179 H 279 H Random Glucose Calcium Phosphorus Magnesium Total Bilirubin AST ALT Alkaline Phosphatase Total Protein Albumin Triglycerides Lipase 04/25/22 04/25/22 04/25/22 16:06 17:04 18:08 WBC RBC Hgb Hct MCV MCH MCHC RDW Plt Count MPV Immature Gran % (Auto) Neut % (Auto) Lymph % (Auto) [place] % (Auto) Eos % (Auto) Baso % (Auto) Lymph # (Auto) [place] # (Auto) Eos # (Auto) Baso # (Auto) Abs Immat Gran (auto) Absolute Neuts (auto) Absolute Nucleated RBC Nucleated RBC % (auto) Neutrophils % (Manual) Band Neutrophils % Lymphocytes % (Manual) Monocytes % (Manual) Eosinophils % (Manual) Basophils % (Manual) Metamyelocytes % Myelocytes % Abs Neuts (Manual) Lymphocytes # (Manual) Monocytes # (Manual) Eosinophils # (Manual) Basophils # (Manual) Metamyelocytes # Myelocytes # Platelet Estimate Plt Morphology Comment RBC Morphology Sodium Potassium Chloride Carbon Dioxide Anion Gap BUN Creatinine Estim Creat Clear Calc Estimated GFR POC Glucose 211 H 223 H 213 H Random Glucose Calcium Phosphorus Magnesium Total Bilirubin AST ALT Alkaline Phosphatase Total Protein Albumin Triglycerides Lipase 04/25/22 04/25/22 04/25/22 19:26 20:15 21:22 WBC RBC Hgb Hct MCV MCH MCHC RDW Plt Count MPV Immature Gran % (Auto) Neut % (Auto) Lymph % (Auto) [place] % (Auto) Eos % (Auto) Baso % (Auto) Lymph # (Auto) [place] # (Auto) Eos # (Auto) Baso # (Auto) Abs Immat Gran (auto) Absolute Neuts (auto) Absolute Nucleated RBC Nucleated RBC % (auto) Neutrophils % (Manual) Band Neutrophils % Lymphocytes % (Manual) Monocytes % (Manual) Eosinophils % (Manual) Basophils % (Manual) Metamyelocytes % Myelocytes % Abs Neuts (Manual) Lymphocytes # (Manual) Monocytes # (Manual) Eosinophils # (Manual) Basophils # (Manual) Metamyelocytes # Myelocytes # Platelet Estimate Plt Morphology Comment RBC Morphology Sodium Potassium Chloride Carbon Dioxide Anion Gap BUN Creatinine Estim Creat Clear Calc Estimated GFR POC Glucose 193 H 179 H 261 H Random Glucose Calcium Phosphorus Magnesium Total Bilirubin AST ALT Alkaline Phosphatase Total Protein Albumin Triglycerides Lipase 04/25/22 04/25/22 04/25/22 21:55 22:14 23:26 WBC RBC Hgb Hct MCV MCH MCHC RDW Plt Count MPV Immature Gran % (Auto) Neut % (Auto) Lymph % (Auto) [place] % (Auto) Eos % (Auto) Baso % (Auto) Lymph # (Auto) [place] # (Auto) Eos # (Auto) Baso # (Auto) Abs Immat Gran (auto) Absolute Neuts (auto) Absolute Nucleated RBC Nucleated RBC % (auto) Neutrophils % (Manual) Band Neutrophils % Lymphocytes % (Manual) Monocytes % (Manual) Eosinophils % (Manual) Basophils % (Manual) Metamyelocytes % Myelocytes % Abs Neuts (Manual) Lymphocytes # (Manual) Monocytes # (Manual) Eosinophils # (Manual) Basophils # (Manual) Metamyelocytes # Myelocytes # Platelet Estimate Plt Morphology Comment RBC Morphology Sodium 133 L Potassium 4.3 Chloride 97 Carbon Dioxide 26 Anion Gap 14 BUN 8 L Creatinine 0.80 Estim Creat Clear Calc 143.3 Estimated GFR > 60 POC Glucose 229 H 207 H Random Glucose 235 H Calcium 8.8 Phosphorus Magnesium Total Bilirubin AST ALT Alkaline Phosphatase Total Protein Albumin Triglycerides Lipase 04/26/22 04/26/22 04/26/22 01:22 02:18 03:58 WBC RBC Hgb Hct MCV MCH MCHC RDW Plt Count MPV Immature Gran % (Auto) Neut % (Auto) Lymph % (Auto) [place] % (Auto) Eos % (Auto) Baso % (Auto) Lymph # (Auto) [place] # (Auto) Eos # (Auto) Baso # (Auto) Abs Immat Gran (auto) Absolute Neuts (auto) Absolute Nucleated RBC Nucleated RBC % (auto) Neutrophils % (Manual) Band Neutrophils % Lymphocytes % (Manual) Monocytes % (Manual) Eosinophils % (Manual) Basophils % (Manual) Metamyelocytes % Myelocytes % Abs Neuts (Manual) Lymphocytes # (Manual) Monocytes # (Manual) Eosinophils # (Manual) Basophils # (Manual) Metamyelocytes # Myelocytes # Platelet Estimate Plt Morphology Comment RBC Morphology Sodium Potassium Chloride Carbon Dioxide Anion Gap BUN Creatinine Estim Creat Clear Calc Estimated GFR POC Glucose 171 H 171 H 173 H Random Glucose Calcium Phosphorus Magnesium Total Bilirubin AST ALT Alkaline Phosphatase Total Protein Albumin Triglycerides Lipase 04/26/22 04/26/22 04/26/22 04:46 04:46 05:57 WBC 9.2 RBC 5.47 Hgb 15.0 Hct 45.6 MCV 83.4 MCH 27.4 MCHC 32.9 RDW 14.2 Plt Count 308 MPV 10.6 Immature Gran % (Auto) Cancelled Neut % (Auto) Cancelled Lymph % (Auto) Cancelled [place] % (Auto) Cancelled Eos % (Auto) Cancelled Baso % (Auto) Cancelled Lymph # (Auto) Cancelled [place] # (Auto) Cancelled Eos # (Auto) Cancelled Baso # (Auto) Cancelled Abs Immat Gran (auto) Cancelled Absolute Neuts (auto) Cancelled Absolute Nucleated RBC 0.000 Nucleated RBC % (auto) 0.0 Neutrophils % (Manual) 62 Band Neutrophils % 7 H Lymphocytes % (Manual) 16 L Monocytes % (Manual) 6 Eosinophils % (Manual) 4 Basophils % (Manual) 2 Metamyelocytes % 2 Myelocytes % 1 Abs Neuts (Manual) 6.3 Lymphocytes # (Manual) 1.5 Monocytes # (Manual) 0.6 Eosinophils # (Manual) 0.4 Basophils # (Manual) 0.2 Metamyelocytes # 0.2 Myelocytes # 0.1 Platelet Estimate NORMAL Plt Morphology Comment NORMAL RBC Morphology NORMAL Sodium 136 Potassium 4.0 Chloride 100 Carbon Dioxide 25 Anion Gap 15 BUN 8 L Creatinine 0.79 Estim Creat Clear Calc 145.1 Estimated GFR > 60 POC Glucose 140 H Random Glucose 143 H Calcium 9.0 Phosphorus 3.8 Magnesium 1.7 Total Bilirubin 0.5 AST 61 H ALT 45 H Alkaline Phosphatase 79 Total Protein 6.4 L Albumin 3.1 L Triglycerides 661 Lipase 148 H 04/26/22 04/26/22 07:08 09:01 WBC RBC Hgb Hct MCV MCH MCHC RDW Plt Count MPV Immature Gran % (Auto) Neut % (Auto) Lymph % (Auto) [place] % (Auto) Eos % (Auto) Baso % (Auto) Lymph # (Auto) [place] # (Auto) Eos # (Auto) Baso # (Auto) Abs Immat Gran (auto) Absolute Neuts (auto) Absolute Nucleated RBC Nucleated RBC % (auto) Neutrophils % (Manual) Band Neutrophils % Lymphocytes % (Manual) Monocytes % (Manual) Eosinophils % (Manual) Basophils % (Manual) Metamyelocytes % Myelocytes % Abs Neuts (Manual) Lymphocytes # (Manual) Monocytes # (Manual) Eosinophils # (Manual) Basophils # (Manual) Metamyelocytes # Myelocytes # Platelet Estimate Plt Morphology Comment RBC Morphology Sodium Potassium Chloride Carbon Dioxide Anion Gap BUN Creatinine Estim Creat Clear Calc Estimated GFR POC Glucose 183 H 182 H Random Glucose Calcium Phosphorus Magnesium Total Bilirubin AST ALT Alkaline Phosphatase Total Protein Albumin Triglycerides Lipase Microbiology Microbiology Results: Microbiology 04/21/22 13:30 Blood - Venous Blood Culture - Preliminary No growth after 48 hours. 04/21/22 13:30 Blood - Venous Blood Culture - Preliminary No growth after 48 hours. Progress Note: A&P Assessment and plan (1) Duodenitis: Status: Acute (2) Hypertriglyceridemia: Status: Acute (3) Pancreatitis: Status: Acute (4) Diabetes mellitus: Status: Acute Plan Assessment: 36-year-old gentleman admitted with metabolic acidosis, pancreatitis with hypertriglyceridemia, diabetic ketoacidosis, and acute renal failure. Plan: Neuro: No acute issues. Cardiac: No acute issues. Pulmonary: No acute issues. Renal: Acute renal failure, resolved. Continue to monitor renal indices and urine output. Endo: Acute pancreatitis /duodenitis with hypertriglyceridemia and ketoacidosis, continue on insulin drip. Triglycerides slowly improving. Continue gemfibrozil. Ketoacidosis component resolved. General surgery and gastroenterology services care appreciated. Upper GI series is pending. GI: No acute issues. ID: No acute issues Heme/Onc: No acute issues. Psych: No acute issues. Miscellaneous: No acute issues. Prophylaxis: heparin Diet: clear liquids Critical care time spent: 30 minutes Quality Stroke Does the patient have a stroke diagnosis?: No VTE Prior VTE?: No VTE Risk Level:: Medical - moderate - high VTE Device Contraindication: N/A - Device Ordered VTE Drug Contraindication: Treatment Not Tolerated
[2022-04-26 11:14] LABS: Glucose, Whole Blood 178 mg/dL (60-115)
[2022-04-26] MEDS: amLODIPine Besylate 5 MG TABLET PO (11:27)
[2022-04-26] MEDS: gemfibroziL 600 MG TABLET PO ×2 (11:27→16:00)
[2022-04-26 13:07] LABS: Glucose, Whole Blood 214 mg/dL (60-115)
[2022-04-26 14:10] LABS: Glucose, Whole Blood 158 mg/dL (60-115)
[2022-04-26 15:34] LABS: Glucose, Whole Blood 193 mg/dL (60-115)
[2022-04-26 16:22] LABS: Glucose, Whole Blood 186 mg/dL (60-115)
--- NOTE | 2022-04-26 16:24 | MHC.CM.PN ---
Pt continues to do well and will tx to the floor once triglycerides are under 500. D/C plan is for a return to home: no services.
[2022-04-26 18:19] LABS: Glucose, Whole Blood 189 mg/dL (60-115)
[2022-04-26 20:08] LABS: Glucose, Whole Blood 183 mg/dL (60-115)
[2022-04-26 22:33] LABS: Glucose, Whole Blood 186 mg/dL (60-115)
[2022-04-27] VITALS: BP 144/96; PULSE 95; RESP 20; TEMP 37.2; O2SAT 93
[2022-04-27 00:01] LABS: Glucose, Whole Blood 137 mg/dL (60-115)
[2022-04-27] MEDS: Dextrose 5 % and Lactated Ring 1,000 ML 100 ML IVCONT (00:08)
[2022-04-27 01:16] LABS: Glucose, Whole Blood 143 mg/dL (60-115)
[2022-04-27 02:15] LABS: Glucose, Whole Blood 141 mg/dL (60-115)
[2022-04-27 04:00] VITALS: BP 133/89; PULSE 82; RESP 19; TEMP 36.1; O2SAT 96
[2022-04-27] MEDS: Heparin Sodium,Porcine 5,000 UNIT/ML VIAL 5000 UNIT SUBCUT ×3 (04:15→18:03)
[2022-04-27 04:17] LABS: Glucose, Whole Blood 144 mg/dL (60-115)
[2022-04-27] MEDS: fentaNYL citrate/PF 100 MCG/2 ML VIAL 50 MCG IVPUSH ×2 (04:44)
[2022-04-27 05:33] LABS: Hematocrit 45.2 % (42.0-52.0); Hemoglobin 14.5 g/dl (14.0-18.0); Mean Corpuscular HGB Conc 32.1 g/dl (31.0-36.0); Mean Corpuscular Hemoglobin 26.4 pg (27.0-33.0); Mean Corpuscular Volume 82.3 fL (80.0-98.0); Mean Platelet Volume 10.3 fL (9.4-12.4); Platelet Count 320 X10*3/uL (160-400); Red Blood Count 5.49 X10*6/uL (4.60-5.80); Red Cell Distribution Width 14.1 % (11.0-16.0); White Blood Count 9.9 X10*3/uL (4.8-10.8)
[2022-04-27 05:47] LABS: Alanine Aminotransferase 49 U/L (0-40); Albumin Level 3.1 g/dL (3.5-5.0); Alkaline Phosphatase 74 U/L (39-117); Anion Gap 15 (12-20); Aspartate Amino Transferase 48 U/L (5-37); Bilirubin Total 0.5 mg/dL (0.0-1.0); Blood Urea Nitrogen 7 mg/dL (9-16); Calcium 9.1 mg/dL (8.4-10.2); Carbon Dioxide 24 mmol/L (22-29); Chloride 101 mmol/L (96-108); Creatinine Clr Calc Pharmacy 146.7; Estimated Glomerular Filt Rate > 60; Glucose Random 161 mg/dL (60-115); Lipase 158 U/L (8-78); Magnesium 1.6 mg/dL (1.6-2.6); Phosphorus 3.7 mg/dL (2.7-4.5); Potassium 4.4 mmol/L (3.3-5.1); Sodium 136 mmol/L (135-145); Total Protein 6.2 g/dL (6.5-8.0); Triglycerides 595 mg/dL
[2022-04-27 05:59] LABS: Band Neutrophils Percent 3 % (3-5); Eosinophils Absolute Manual 0.1 X10*3/uL (0.0-0.4); Eosinophils Percent Manual 1 % (0-4); Lymphocytes Percent Manual 20 % (20-40); Metamyelocytes Absolute 0.2 X10*3/uL; Metamyelocytes Percent 2 %; Monocytes Absolute Manual 1.7 X10*3/uL (0.1-1.2); Monocytes Percent Manual 17 % (2-11); Neutrophils Absolute Manual 5.9 X10*3/uL (2.0-8.3); Neutrophils Percent Manual 57 % (45-73)
[2022-04-27 06:00] VITALS: BMI 31.2
[2022-04-27 06:00] LABS: Platelet Estimate NORMAL (NORMAL); Platelet Morphology Comment NORMAL; RBC Morphology NORMAL
[2022-04-27] MEDS: Pantoprazole Sodium 40 MG/10 ML VIAL IVPUSH (06:08)
[2022-04-27 06:09] LABS: Glucose, Whole Blood 173 mg/dL (60-115)
[2022-04-27 08:00] VITALS: BP 141/95; PULSE 91; RESP 15; TEMP 36.8; O2SAT 97
[2022-04-27 08:22] LABS: Glucose, Whole Blood 156 mg/dL (60-115)
[2022-04-27] MEDS: amLODIPine Besylate 5 MG TABLET PO (08:25)
[2022-04-27] MEDS: gemfibroziL 600 MG TABLET PO ×2 (08:25→16:39)
[2022-04-27] MEDS: Insulin Glargine,Hum.rec.anlog 100 UNIT/ML 10 ML VIAL 30 UNIT SUBCUT (08:44)
--- NOTE | 2022-04-27 10:06 | PM.CCPN ---
Subjective Subjective Date of Service: 04/27/22 Interval History: 36-year-old gentleman with recent diagnosis of diabetes mellitus, also [facility] and hypertension admitted on 04/21/2022 with 5 day history of slowly worsening abdominal pain. On ER evaluation metabolic acidosis with hyperglycemia and CT evidence of duodenitis, also with significantly elevated lipase and triglycerides. Elevated by General surgery with no concern for duodenal perforation at this time. Patient admitted to intensive care unit requiring insulin drip. Slow improvement in triglycerides. Repeat CT abdomen with concern for worsening duodenitis, re-evaluated by General surgery and also evaluated by Gastroenterology with no concern for viscus perforation. Normal upper GI Series with no concern for contrast extravasation. No events overnight. transition from insulin drip to subcutaneous insulin today. Critical Care Time (minutes): 0 Physical Exam Vital Signs: Vital Signs: Last Vital Signs Temp 98.3 F 04/27/22 08:00 Pulse 91 04/27/22 08:00 Resp 15 04/27/22 08:00 BP 141/95 H 04/27/22 08:00 Pulse Ox 97 04/27/22 08:00 O2 Del Method 04/27/22 08:00 O2 Flow Rate 2 04/23/22 13:00 BMI result Body Mass Index 31.2 Const: General: no acute distress, alert and awake Eyes: Sclerae: sclerae normal EOM: EOMs intact bilaterally Neck: Neck: Yes no lymphadenopathy, Yes trachea midline and Yes supple Resp: Effort & Inspection: normal respiratory effort and no respiratory distress Auscultation: clear to auscultation bilaterally Cardio: Rate: regular rate Rhythm: regular rhythm Heart sounds: no gallops, no murmurs and no rubs GI: Palpation (GI): Soft to palpation and Other GI palpation findings present ( Nontender) Auscultation: normal bowel sounds Extrem: General: Yes no pedal edema, No clubbing and No cyanosis Objective Data Labs 04/27/22 05:01 04/27/22 05:01 Labs: Laboratory Results - last 24 hr 04/26/22 04/26/22 04/26/22 11:09 13:01 14:07 WBC RBC Hgb Hct MCV MCH MCHC RDW Plt Count MPV Immature Gran % (Auto) Neut % (Auto) Lymph % (Auto) [place] % (Auto) Eos % (Auto) Baso % (Auto) Lymph # (Auto) [place] # (Auto) Eos # (Auto) Baso # (Auto) Abs Immat Gran (auto) Absolute Neuts (auto) Absolute Nucleated RBC Nucleated RBC % (auto) Neutrophils % (Manual) Band Neutrophils % Lymphocytes % (Manual) Monocytes % (Manual) Eosinophils % (Manual) Metamyelocytes % Abs Neuts (Manual) Lymphocytes # (Manual) Monocytes # (Manual) Eosinophils # (Manual) Metamyelocytes # Platelet Estimate Plt Morphology Comment RBC Morphology Sodium Potassium Chloride Carbon Dioxide Anion Gap BUN Creatinine Estim Creat Clear Calc Estimated GFR POC Glucose 178 H 214 H 158 H Random Glucose Calcium Phosphorus Magnesium Total Bilirubin AST ALT Alkaline Phosphatase Total Protein Albumin Triglycerides Lipase 04/26/22 04/26/22 04/26/22 15:30 16:19 18:08 WBC RBC Hgb Hct MCV MCH MCHC RDW Plt Count MPV Immature Gran % (Auto) Neut % (Auto) Lymph % (Auto) [place] % (Auto) Eos % (Auto) Baso % (Auto) Lymph # (Auto) [place] # (Auto) Eos # (Auto) Baso # (Auto) Abs Immat Gran (auto) Absolute Neuts (auto) Absolute Nucleated RBC Nucleated RBC % (auto) Neutrophils % (Manual) Band Neutrophils % Lymphocytes % (Manual) Monocytes % (Manual) Eosinophils % (Manual) Metamyelocytes % Abs Neuts (Manual) Lymphocytes # (Manual) Monocytes # (Manual) Eosinophils # (Manual) Metamyelocytes # Platelet Estimate Plt Morphology Comment RBC Morphology Sodium Potassium Chloride Carbon Dioxide Anion Gap BUN Creatinine Estim Creat Clear Calc Estimated GFR POC Glucose 193 H 186 H 189 H Random Glucose Calcium Phosphorus Magnesium Total Bilirubin AST ALT Alkaline Phosphatase Total Protein Albumin Triglycerides Lipase 04/26/22 04/26/22 04/26/22 20:03 22:29 23:58 WBC RBC Hgb Hct MCV MCH MCHC RDW Plt Count MPV Immature Gran % (Auto) Neut % (Auto) Lymph % (Auto) [place] % (Auto) Eos % (Auto) Baso % (Auto) Lymph # (Auto) [place] # (Auto) Eos # (Auto) Baso # (Auto) Abs Immat Gran (auto) Absolute Neuts (auto) Absolute Nucleated RBC Nucleated RBC % (auto) Neutrophils % (Manual) Band Neutrophils % Lymphocytes % (Manual) Monocytes % (Manual) Eosinophils % (Manual) Metamyelocytes % Abs Neuts (Manual) Lymphocytes # (Manual) Monocytes # (Manual) Eosinophils # (Manual) Metamyelocytes # Platelet Estimate Plt Morphology Comment RBC Morphology Sodium Potassium Chloride Carbon Dioxide Anion Gap BUN Creatinine Estim Creat Clear Calc Estimated GFR POC Glucose 183 H 186 H 137 H Random Glucose Calcium Phosphorus Magnesium Total Bilirubin AST ALT Alkaline Phosphatase Total Protein Albumin Triglycerides Lipase 04/27/22 04/27/22 04/27/22 01:12 02:11 04:13 WBC RBC Hgb Hct MCV MCH MCHC RDW Plt Count MPV Immature Gran % (Auto) Neut % (Auto) Lymph % (Auto) [place] % (Auto) Eos % (Auto) Baso % (Auto) Lymph # (Auto) [place] # (Auto) Eos # (Auto) Baso # (Auto) Abs Immat Gran (auto) Absolute Neuts (auto) Absolute Nucleated RBC Nucleated RBC % (auto) Neutrophils % (Manual) Band Neutrophils % Lymphocytes % (Manual) Monocytes % (Manual) Eosinophils % (Manual) Metamyelocytes % Abs Neuts (Manual) Lymphocytes # (Manual) Monocytes # (Manual) Eosinophils # (Manual) Metamyelocytes # Platelet Estimate Plt Morphology Comment RBC Morphology Sodium Potassium Chloride Carbon Dioxide Anion Gap BUN Creatinine Estim Creat Clear Calc Estimated GFR POC Glucose 143 H 141 H 144 H Random Glucose Calcium Phosphorus Magnesium Total Bilirubin AST ALT Alkaline Phosphatase Total Protein Albumin Triglycerides Lipase 04/27/22 04/27/22 04/27/22 05:01 05:01 06:04 WBC 9.9 RBC 5.49 Hgb 14.5 Hct 45.2 MCV 82.3 MCH 26.4 L MCHC 32.1 RDW 14.1 Plt Count 320 MPV 10.3 Immature Gran % (Auto) Cancelled Neut % (Auto) Cancelled Lymph % (Auto) Cancelled [place] % (Auto) Cancelled Eos % (Auto) Cancelled Baso % (Auto) Cancelled Lymph # (Auto) Cancelled [place] # (Auto) Cancelled Eos # (Auto) Cancelled Baso # (Auto) Cancelled Abs Immat Gran (auto) Cancelled Absolute Neuts (auto) Cancelled Absolute Nucleated RBC 0.000 Nucleated RBC % (auto) 0.0 Neutrophils % (Manual) 57 Band Neutrophils % 3 Lymphocytes % (Manual) 20 Monocytes % (Manual) 17 H Eosinophils % (Manual) 1 Metamyelocytes % 2 Abs Neuts (Manual) 5.9 Lymphocytes # (Manual) 2.0 Monocytes # (Manual) 1.7 H Eosinophils # (Manual) 0.1 Metamyelocytes # 0.2 Platelet Estimate NORMAL Plt Morphology Comment NORMAL RBC Morphology NORMAL Sodium 136 Potassium 4.4 Chloride 101 Carbon Dioxide 24 Anion Gap 15 BUN 7 L Creatinine 0.78 Estim Creat Clear Calc 146.7 Estimated GFR > 60 POC Glucose 173 H Random Glucose 161 H Calcium 9.1 Phosphorus 3.7 Magnesium 1.6 Total Bilirubin 0.5 AST 48 H ALT 49 H Alkaline Phosphatase 74 Total Protein 6.2 L Albumin 3.1 L Triglycerides 595 Lipase 158 H 04/27/22 08:18 WBC RBC Hgb Hct MCV MCH MCHC RDW Plt Count MPV Immature Gran % (Auto) Neut % (Auto) Lymph % (Auto) [place] % (Auto) Eos % (Auto) Baso % (Auto) Lymph # (Auto) [place] # (Auto) Eos # (Auto) Baso # (Auto) Abs Immat Gran (auto) Absolute Neuts (auto) Absolute Nucleated RBC Nucleated RBC % (auto) Neutrophils % (Manual) Band Neutrophils % Lymphocytes % (Manual) Monocytes % (Manual) Eosinophils % (Manual) Metamyelocytes % Abs Neuts (Manual) Lymphocytes # (Manual) Monocytes # (Manual) Eosinophils # (Manual) Metamyelocytes # Platelet Estimate Plt Morphology Comment RBC Morphology Sodium Potassium Chloride Carbon Dioxide Anion Gap BUN Creatinine Estim Creat Clear Calc Estimated GFR POC Glucose 156 H Random Glucose Calcium Phosphorus Magnesium Total Bilirubin AST ALT Alkaline Phosphatase Total Protein Albumin Triglycerides Lipase Microbiology Microbiology Results: Microbiology 04/21/22 13:30 Blood - Venous Blood Culture - Final No growth after 5 days. 04/21/22 13:30 Blood - Venous Blood Culture - Final No growth after 5 days. Progress Note: A&P Assessment and plan (1) Pancreatitis: Status: Acute (2) Duodenitis: Status: Acute (3) Hypertriglyceridemia: Status: Acute (4) Diabetes mellitus: Status: Acute Plan Assessment: 36-year-old gentleman admitted with metabolic acidosis, pancreatitis with hypertriglyceridemia, diabetic ketoacidosis, and acute renal failure. Plan: Neuro: No acute issues. Cardiac: No acute issues. Pulmonary: No acute issues. Renal: Acute renal failure, resolved. Continue to monitor renal indices and urine output. Endo: Acute pancreatitis /duodenitis with hypertriglyceridemia and ketoacidosis, transitioned from insulin drip to subcutaneous insulin. Triglycerides slowly improving. Continue gemfibrozil. Ketoacidosis component resolved. General surgery and gastroenterology services care appreciated. Upper GI series with no contrast extravasation. Advance diet as tolerated. GI: No acute issues. ID: No acute issues Heme/Onc: No acute issues. Psych: No acute issues. Miscellaneous: No acute issues. Prophylaxis: heparin Diet: full liquids At this time patient is stable for transfer to telemetry [facility]. Transfer discussed with Beena Merchant N.P. Quality Stroke Does the patient have a stroke diagnosis?: No VTE Prior VTE?: No VTE Risk Level:: Medical - moderate - high VTE Device Contraindication: N/A - Device Ordered VTE Drug Contraindication: Treatment Not Tolerated
[2022-04-27 11:19] LABS: Glucose, Whole Blood 185 mg/dL (60-115)
--- NOTE | 2022-04-27 11:27 | P.EN_ITS ---
Documented by User: ENEDELIA Gold 04/27/22 17:22 Event Note Date of Service: 04/27/22 Event Note: ICU downgrade to [facility] [place]. Case discussed with Dr. Mobley. Recent diagnosis type 2 DM, A1c >14.0%. Admitted to ICU with metabolic acidosis and hyperglycemia/ketoacidosis and PAOLA with evidence of duodenitis and pancreatitis with significantly elevated triglycerides and lipase. Initially treated with insulin drip, weaned to 30 units lantus daily and lispro on sliding scale, and D5LR. Hypertriglyceridemia treated with gemfibrozil. General surgery and GI following case. CT abd/pelvis was repeated noting ongoing inflammation and concern for duodenum performation. However, general surgery and GI feel inflammation appears improved without perforation. Subsequent Upper GI small bowel series was normal. Pt tolerating diet advancement. Plan: Duodenitis- appreciate GI/gen surg input, ondansetron prn n/v, continue full liquid diet advance as tolerated Pancreatitis- appears resolved. Lipase trended down, currently 158. Leukocytosis resolved Diabetic ketoacidosis- resolved Type 2 diabetes with hyperglycemia- Hgb A1c >14.0%. Continue lantus 30 units daily, humalog SSI, POC glucose, advance to diabetic diet Hypertriglyceridemia- 2088 on admission, improved to 595. Continue gemfibrozil PAOLA- resolved HTN- BP controlled. Continue amlodipine 5mg Time Spent With Patient Time: Total time managing care of this patient today ____ minutes. Documented by User: Yael Grant MD 05/05/22 13:41 Event Note Date of Service: 05/05/22
[2022-04-27 12:00] VITALS: BP 130/88; PULSE 103; RESP 22; O2SAT 96
[2022-04-27] MEDS: Insulin Lispro 100 UNIT/ML 3 ML VIAL SUBCUT ×3 (12:11→21:07)
[2022-04-27] MEDS: Acetaminophen 325 MG TABLET 650 MG PO (12:11)
--- NOTE | 2022-04-27 12:21 | PC.NURSE ---
ADDENDUM: antibiotic hung @1335, 1 minute after completed draw of blood cultures.
[2022-04-27 16:26] LABS: Glucose, Whole Blood 230 mg/dL (60-115)
[2022-04-27 16:44] VITALS: BP 119/83; PULSE 93; RESP 14; TEMP 37.2; O2SAT 94
[2022-04-27 19:48] VITALS: BP 144/96; PULSE 102; RESP 15; TEMP 36.1; O2SAT 93
[2022-04-27 21:00] LABS: Glucose, Whole Blood 209 mg/dL (60-115)
[2022-04-28] VITALS: BP 138/93; PULSE 85; RESP 20; TEMP 36.3; O2SAT 98
[2022-04-28 04:00] VITALS: BP 132/88; PULSE 91; RESP 20; TEMP 36.9; O2SAT 97
[2022-04-28 05:34] VITALS: BMI 31.6
[2022-04-28 06:46] LABS: Hematocrit 44.8 % (42.0-52.0); Hemoglobin 14.6 g/dl (14.0-18.0); Mean Corpuscular HGB Conc 32.6 g/dl (31.0-36.0); Mean Corpuscular Hemoglobin 27.2 pg (27.0-33.0); Mean Corpuscular Volume 83.4 fL (80.0-98.0); Mean Platelet Volume 10.2 fL (9.4-12.4); Platelet Count 311 X10*3/uL (160-400); Red Blood Count 5.37 X10*6/uL (4.60-5.80); Red Cell Distribution Width 14.2 % (11.0-16.0); White Blood Count 8.8 X10*3/uL (4.8-10.8)
[2022-04-28 07:12] LABS: Alanine Aminotransferase 43 U/L (0-40); Albumin Level 3.3 g/dL (3.5-5.0); Alkaline Phosphatase 75 U/L (39-117); Anion Gap 11 (12-20); Aspartate Amino Transferase 36 U/L (5-37); Bilirubin Total 0.5 mg/dL (0.0-1.0); Blood Urea Nitrogen 9 mg/dL (9-16); Calcium 9.1 mg/dL (8.4-10.2); Carbon Dioxide 26 mmol/L (22-29); Chloride 101 mmol/L (96-108); Creatinine Clr Calc Pharmacy 133.7; Estimated Glomerular Filt Rate > 60; Glucose Random 160 mg/dL (60-115); Lipase 160 U/L (8-78); Magnesium 1.7 mg/dL (1.6-2.6); Phosphorus 3.4 mg/dL (2.7-4.5); Potassium 4.3 mmol/L (3.3-5.1); Sodium 134 mmol/L (135-145); Total Protein 6.4 g/dL (6.5-8.0); Triglycerides 650 mg/dL
[2022-04-28 07:48] VITALS: BP 144/93; PULSE 90; RESP 20; TEMP 37.1; O2SAT 99
[2022-04-28 07:54] LABS: Glucose, Whole Blood 166 mg/dL (60-115)
[2022-04-28 08:05] LABS: Band Neutrophils Percent 4 % (3-5); Eosinophils Absolute Manual 0.3 X10*3/uL (0.0-0.4); Eosinophils Percent Manual 3 % (0-4); Lymphocytes Absolute Manual 1.3 X10*3/uL (1.2-4.9); Lymphocytes Percent Manual 15 % (20-40); Metamyelocytes Absolute 0.3 X10*3/uL; Metamyelocytes Percent 3 %; Monocytes Percent Manual 11 % (2-11); Neutrophils Percent Manual 64 % (45-73)
[2022-04-28 08:07] LABS: Platelet Estimate NORMAL (NORMAL); Platelet Morphology Comment NORMAL; RBC Morphology NORMAL
[2022-04-28] MEDS: Insulin Glargine,Hum.rec.anlog 100 UNIT/ML 10 ML VIAL 30 UNIT SUBCUT (08:50)
[2022-04-28] MEDS: Insulin Lispro 100 UNIT/ML 3 ML VIAL SUBCUT ×4 (08:51→21:49)
[2022-04-28] MEDS: gemfibroziL 600 MG TABLET PO ×2 (08:51→16:05)
[2022-04-28] MEDS: amLODIPine Besylate 5 MG TABLET PO (08:52)
[2022-04-28 11:19] LABS: Glucose, Whole Blood 240 mg/dL (60-115)
[2022-04-28 11:42] VITALS: BP 139/82; PULSE 105; RESP 20; TEMP 36.6; O2SAT 99
[2022-04-28] MEDS: Heparin Sodium,Porcine 5,000 UNIT/ML VIAL 5000 UNIT SUBCUT (12:46)
--- NOTE | 2022-04-28 14:59 | P.PNIM_ITS ---
Subjective Subjective Date of Service: 04/28/22 Interval History: Seen in follow-up for acute duodenitis/pancreatitis Interval history. Patient reports intermittent 4/10 right-sided abdominal pain that has been fleeting and is not overly bothered by this. No associated nausea, vomiting. Has been tolerating full liquid diet. Review of Systems Review of Systems: Yes all other systems are reviewed and are negative Physical Exam Vital Signs: Vital Signs: Last Vital Signs Temp 97.9 F 04/28/22 11:42 Pulse 105 H 04/28/22 11:42 Resp 20 04/28/22 11:42 BP 139/82 04/28/22 11:42 Pulse Ox 99 04/28/22 11:42 O2 Del Method 04/28/22 11:42 O2 Flow Rate 2 04/23/22 13:00 BMI result Body Mass Index 31.6 Constitutional - Awake and Alert, No apparent distress Eyes - PERRLA, EOMI Cardiovascular - S1S2, RRR, No edema Respiratory - Normal lung expansion, Normal respiratory effort, No respiratory distress, CTA bilaterally Gastrointestinal - NT / ND; +BS; No rebound or guarding Extremities - no calf tenderness bilaterally, no swelling Skin - Warm/Dry Neurological - Alert & oriented x3 Psychological - Appropriate affect Objective Data Active Medications Acetaminophen (Acetaminophen 325 Mg Tablet) 650 mg PO Q6H PRN PRN Reason: Pain, Mild (Pain Scale 1-3) Last Admin: 04/27/22 12:11 Dose: 650 mg Documented By: MATTHEW Amlodipine Besylate (Amlodipine Besylate 5 Mg Tablet) 5 mg PO DAILY [facility]; Protocol Last Admin: 04/28/22 08:52 Dose: 5 mg Documented By: JIM Benzocaine (Throat Lozenge, Medicated Lozenge) 1 lozenge MUCOUS MEM Q2H PRN PRN Reason: Sore Throat Last Admin: 04/26/22 00:06 Dose: 1 lozenge Documented By: KATERINA Dextrose (Dextrose 50 % 25 Gm/50 Ml Syringe) 25 gm IVPUSH Q30M PRN PRN Reason: Nursing Actions in Insulin Infusion Protocol Dextrose (Dextrose 50 % 25 Gm/50 Ml Syringe) 25 gm IVPUSH Q30M PRN PRN Reason: BG < 70 Fentanyl (Fentanyl Citrate/Pf 100 Mcg/2 Ml Vial) 50 mcg IVPUSH Q2H PRN; Protocol PRN Reason: Pain, Moderate (Pain Scale 4-6 Last Admin: 04/27/22 04:44 Dose: 50 mcg Documented By: KATERINA Gemfibrozil (Gemfibrozil 600 Mg Tablet) 600 mg PO BIDAC [facility] [place] Last Admin: 04/28/22 08:51 Dose: 600 mg Documented By: JIM Heparin Sodium (Porcine) (Heparin Sodium,Porcine 5,000 Unit/Ml Vial) 5,000 unit SUBCUT Q8H [facility] [place] Last Admin: 04/28/22 12:46 Dose: 5,000 unit Documented By: JIM Insulin Glargine (Insulin Glargine,Hum.Rec.Anlog 100 Unit/Ml 10 Ml Vial) 30 unit SUBCUT DAILY [facility] [place] Last Admin: 04/28/22 08:50 Dose: 30 unit Documented By: JIM Insulin Human Lispro (Insulin Lispro 100 Unit/Ml 3 Ml Vial) 0 unit SUBCUT QIDACHS [facility] [place]; Protocol Last Admin: 04/28/22 12:46 Dose: 4 unit Documented By: JIM Pharmacy Consult (Consult Rx Perform Med Rec) 1 each MISCELLANE ONCE PRN PRN Reason: Consult order Labs 04/28/22 06:33 04/28/22 06:33 Labs: Laboratory Results - last 24 hr 04/27/22 04/27/22 04/28/22 16:22 20:57 06:33 MCV 83.4 MCH 27.2 MCHC 32.6 RDW 14.2 Plt Count 311 MPV 10.2 Immature Gran % (Auto) Cancelled Neut % (Auto) Cancelled Lymph % (Auto) Cancelled [place] % (Auto) Cancelled Eos % (Auto) Cancelled Baso % (Auto) Cancelled Lymph # (Auto) Cancelled [place] # (Auto) Cancelled Eos # (Auto) Cancelled Baso # (Auto) Cancelled Abs Immat Gran (auto) Cancelled Absolute Neuts (auto) Cancelled Absolute Nucleated RBC 0.000 Nucleated RBC % (auto) 0.0 Neutrophils % (Manual) 64 Band Neutrophils % 4 Lymphocytes % (Manual) 15 L Monocytes % (Manual) 11 Eosinophils % (Manual) 3 Metamyelocytes % 3 Abs Neuts (Manual) 6.0 Lymphocytes # (Manual) 1.3 Monocytes # (Manual) 1.0 Eosinophils # (Manual) 0.3 Metamyelocytes # 0.3 Platelet Estimate NORMAL Plt Morphology Comment NORMAL RBC Morphology NORMAL Anion Gap Estim Creat Clear Calc Estimated GFR POC Glucose 230 H 209 H Random Glucose Calcium Phosphorus Magnesium Total Bilirubin AST ALT Alkaline Phosphatase Total Protein Albumin Triglycerides Lipase 04/28/22 04/28/22 04/28/22 06:33 07:50 11:12 MCV MCH MCHC RDW Plt Count MPV Immature Gran % (Auto) Neut % (Auto) Lymph % (Auto) [place] % (Auto) Eos % (Auto) Baso % (Auto) Lymph # (Auto) [place] # (Auto) Eos # (Auto) Baso # (Auto) Abs Immat Gran (auto) Absolute Neuts (auto) Absolute Nucleated RBC Nucleated RBC % (auto) Neutrophils % (Manual) Band Neutrophils % Lymphocytes % (Manual) Monocytes % (Manual) Eosinophils % (Manual) Metamyelocytes % Abs Neuts (Manual) Lymphocytes # (Manual) Monocytes # (Manual) Eosinophils # (Manual) Metamyelocytes # Platelet Estimate Plt Morphology Comment RBC Morphology Anion Gap 11 L Estim Creat Clear Calc 133.7 Estimated GFR > 60 POC Glucose 166 H 240 H Random Glucose 160 H Calcium 9.1 Phosphorus 3.4 Magnesium 1.7 Total Bilirubin 0.5 AST 36 ALT 43 H Alkaline Phosphatase 75 Total Protein 6.4 L Albumin 3.3 L Triglycerides 650 Lipase 160 H Assessment and Plan (1) Duodenitis: Status: Acute (2) Acute kidney injury: Status: Acute (3) Hypertriglyceridemia: Status: Acute (4) DKA (diabetic ketoacidosis): Status: Acute (5) Pancreatitis: Status: Acute Plan 36-year-old male with history newly diagnosed type 2 diabetes, hypertension, mild intermittent asthma admitted on 04/21 for management of diabetic ketoacido sis with PAOLA with acute duodenitis and pancreatitis related to hypertriglyceridemia with ICU step-down to hospitalist service for further management. #Acute duodenitis/pancreatitis -repeat CT abd/pelvis with quetsion of worsenign inflammation. Evaluated by GI who feels imflammation improving -Lipase trending down, triglyceride level turning down -Clinically improving. Tolerating full liquid diet, advance to diabetic diet -Discussed with GI, follow up outpt. No EGD now -Continue simethicone QIDHS #Diabetic ketoacidosis -resolved -weaned from insulin drip. Continue Lantus and sliding scale # acute kidney injury-resolved -related to fluid shifts from acute pancreatitis # hypertriglyceridemia -continue gemfibrozil -monitor triglyceride level # insulin-dependent type 2 diabetes-now controlled -A1c on admission >14.0% -continue basal insulin, Humalog on sliding scale -advanced a diabetic diet -POC glucose # hypertension-reasonably controlled -continue amlodipine # mild intermittent asthma-without acute exacerbation DVT prophylaxis-heparin Full code Patient requires ongoing inpatient stay for management of duodenitis/pancreatitis as well as ketoacidosis which are resolving with plan to discharge home tomorrow pending tolerance of diet advancement Time Spent With Patient Time: Total time managing care of this patient today ____ minutes. Quality Stroke Does the patient have a stroke diagnosis?: No VTE Prior VTE?: No VTE Risk Level:: Medical - moderate - high VTE Device Contraindication: N/A - Device Ordered VTE Drug Contraindication: Treatment Not Tolerated
--- NOTE | 2022-04-28 15:00 | MHC.CM.PN ---
Per MD rounds no dc today. Plan is to advance diet. Discharge is anticipated tomorrow. DP home self care. Patient will self transport home.
[2022-04-28 15:38] VITALS: BP 144/84; PULSE 95; RESP 17; TEMP 36.6; O2SAT 98
[2022-04-28 15:49] LABS: Glucose, Whole Blood 189 mg/dL (60-115)
[2022-04-28] MEDS: Acetaminophen 325 MG TABLET 650 MG PO ×2 (16:05→21:46)
[2022-04-28] MEDS: Simethicone 80 MG TAB.CHEW PO ×2 (16:06→21:46)
[2022-04-28 19:18] VITALS: BP 143/73; PULSE 89; RESP 17; TEMP 36.7; O2SAT 98
[2022-04-28 19:42] LABS: Glucose, Whole Blood 176 mg/dL (60-115)
[2022-04-29] VITALS: BP 137/88; PULSE 81; RESP 18; TEMP 37; O2SAT 97
[2022-04-29 06:00] VITALS: BMI 31.5
[2022-04-29] MEDS: Omeprazole 40 MG CAPSULE.DR PO (06:09)
[2022-04-29 06:41] LABS: MANUAL DIFF FLAG NO
[2022-04-29 06:44] LABS: Basophils Absolute Auto 0.1 X10*3/uL (0.0-0.2); Basophils Percent Auto 0.8 % (0-2); Eosinophils Absolute Auto 0.2 X10*3/uL (0.0-0.4); Eosinophils Percent Auto 3.1 % (0-4); Hematocrit 45.6 % (42.0-52.0); Hemoglobin 14.8 g/dl (14.0-18.0); Imm Gran Abs Auto 0.35 X10*3/uL (0.00-0.03); Imm Gran Pct Auto 4.7 % (0.0-0.4); Lymphocytes Absolute Auto 2.4 X10*3/uL (1.2-4.9); Lymphocytes Percent Auto 32.7 % (20-40); Mean Corpuscular HGB Conc 32.5 g/dl (31.0-36.0); Mean Corpuscular Volume 83.2 fL (80.0-98.0); Mean Platelet Volume 9.7 fL (9.4-12.4); Monocytes Absolute Auto 0.7 X10*3/uL (0.1-1.2); Monocytes Percent Auto 9.9 % (2-11); Neutrophils Absolute Auto 3.6 x10*3/uL (2.0-8.3); Neutrophils Percent Auto 48.8 % (45-73); Platelet Count 311 X10*3/uL (160-400); Red Blood Count 5.48 X10*6/uL (4.60-5.80); Red Cell Distribution Width 14.1 % (11.0-16.0); White Blood Count 7.4 X10*3/uL (4.8-10.8)
[2022-04-29 07:04] LABS: Alanine Aminotransferase 38 U/L (0-40); Albumin Level 3.4 g/dL (3.5-5.0); Alkaline Phosphatase 74 U/L (39-117); Anion Gap 15 (12-20); Aspartate Amino Transferase 33 U/L (5-37); Bilirubin Total 0.5 mg/dL (0.0-1.0); Blood Urea Nitrogen 12 mg/dL (9-16); Calcium 9.1 mg/dL (8.4-10.2); Carbon Dioxide 25 mmol/L (22-29); Chloride 101 mmol/L (96-108); Creatinine Clr Calc Pharmacy 140.1; Estimated Glomerular Filt Rate > 60; Glucose Random 140 mg/dL (60-115); Lipase 148 U/L (8-78); Potassium 4.5 mmol/L (3.3-5.1); Sodium 136 mmol/L (135-145); Total Protein 6.9 g/dL (6.5-8.0); Triglycerides 591 mg/dL
[2022-04-29 08:00] VITALS: BP 124/80; PULSE 91; RESP 20; TEMP 36.4; O2SAT 96
[2022-04-29 08:11] LABS: Glucose, Whole Blood 158 mg/dL (60-115)
[2022-04-29] MEDS: amLODIPine Besylate 5 MG TABLET PO (08:36)
[2022-04-29] MEDS: Insulin Lispro 100 UNIT/ML 3 ML VIAL SUBCUT ×2 (08:36→11:21)
[2022-04-29] MEDS: Simethicone 80 MG TAB.CHEW PO ×2 (08:36→11:21)
[2022-04-29] MEDS: gemfibroziL 600 MG TABLET PO (08:36)
[2022-04-29] MEDS: Insulin Glargine,Hum.rec.anlog 100 UNIT/ML 10 ML VIAL 30 UNIT SUBCUT (08:37)
[2022-04-29 11:19] LABS: Glucose, Whole Blood 203 mg/dL (60-115)
[2022-04-29] MEDS: Heparin Sodium,Porcine 5,000 UNIT/ML VIAL 5000 UNIT SUBCUT (11:21)
[2022-04-29 11:42] VITALS: BP 133/77; PULSE 94; RESP 20; TEMP 36.1; O2SAT 97
--- NOTE | 2022-04-29 11:53 | MHC.CM.PN ---
IMM 04/28/22 Patient is discharged to home self care. He will self transport home.
--- NOTE | 2022-04-29 12:20 | P.DS_ITS ---
DS: Providers Provider Date of Service: 04/29/22 Date of admission: 04/21/22 14:13 Primary care physician: Aurelio Sellers MD Consults: 04/25/22 08:40 Consult to Gastroenterology Routine Consulting Provider: [facility] [place] [facility] Reason for consultation: pancreatitis, duodenitis, ?duodenal ulcer, evaluate for EGD Has provider been notified: No DS: Diagnosis Discharge Diagnosis (1) Duodenitis: Status: Acute (2) Acute kidney injury: Status: Acute (3) Hypertriglyceridemia: Status: Acute (4) DKA (diabetic ketoacidosis): Status: Acute (5) Pancreatitis: Status: Acute DS: Summary Hospital Course Hospital Course: Date of Service: 04/21/22 Chief Complaint: ? Abdominal pain, pancreatitis, metabolic acidosis ?36-year-old gentleman with recent diagnosis of diabetes mellitus, also [facility] and hypertension admitted on 04/21/2022 with 5 day history of slowly worsening abdominal pain.? On ER evaluation metabolic acidosis with hyperglycemia and CT evidence of duodenitis, also with significantly elevated lipase and trig lycerides.? Elevated by General surgery with no concern for duodenal perforation at this time.? Patient admitted to intensive care unit? requiring insulin drip. hospital course: 36-year-old gentleman with past medical history of gout and recent diagnosis of type 2 DM, A1c >14.0%. Admitted to ICU with metabolic acidosis and hyperglycemia/ketoacidosis and PAOLA with evidence of duodenitis and pancreatitis with significantly elevated triglycerides and lipase. Initially treated with insulin drip, weaned to 30 units lantus daily and lispro on sliding scale, and D5LR. Hypertriglyceridemia treated with gemfibrozil. CT abd/pelvis was repeated noting ongoing inflammation and concern for duodenum perforation. However, general surgery and GI feel inflammation appears improved without perforation. Subsequent Upper GI small bowel series was normal, patient was subsequently downgraded to intermediate care unit on 04/27 #Acute duodenitis/pancreatitis, patient treated with IV fluids, analgesics and Lopid for hypertriglyceridemia patient responded well to above treatment, lipase trended down, triglyceride level is turning down diet was gradually advanced patient is tolerating diabetic diet with no recurrent abdominal pain no nausea no vomiting patient has been recommended outpatient follow-up with Gastroenterology and being discharged home on Prilosec and Lopid. #Diabetic ketoacidosis treated with IV insulin drip, IV fluid wall, blood sugars improved recommend to continue Lantus, Jardiance and metformin and strong recommendation to follow diabetic diet, A1c on admission >14.0% # acute kidney injury-resolved was likely related to fluid shifts from acute pancreatitis # hypertriglyceridemia-continue gemfibrozil, monitor triglyceride level as outpatient # hypertension-continue amlodipine, follow blood pressure noted to be elevated start lisinopril 10-20 mg per day # mild intermittent asthma-without acute exacerbation Time Spent with Patient Time attestation: Total time managing care of this patient today ____ minutes. Discharge coordination time: Greater than 30 minutes Quality: Safe Use of Opioids Does Pt have an Active Cancer Diagnosis on the Problem List?: No Quality: Stroke Does the patient have a stroke diagnosis?: No Physical Exam Vital Signs: Vital Signs: Last Vital Signs Temp 97.0 F 04/29/22 11:42 Pulse 94 04/29/22 11:42 Resp 20 04/29/22 11:42 BP 133/77 04/29/22 11:42 Pulse Ox 97 04/29/22 11:42 O2 Del Method 04/29/22 11:42 O2 Flow Rate 2 04/23/22 13:00 BMI result Body Mass Index 31.5 Const: Other: Constitutional - Awake and Alert, No apparent distress Eyes - PERRLA, EOMI Cardiovascular - S1S2, RRR, No edema Respiratory - Normal lung expansion, Normal respiratory effort, No respiratory distress, CTA bilaterally Gastrointestinal - nontender, +BS; No rebound or guarding Extremities - left forearm mild in duration and hyperemia, no lower extremity swelling. Skin - Warm/Dry Neurological - Alert & oriented x3 Psychological - Appropriate affect DS: Data Data Completed and Pending Labs on day of discharge: Laboratory Results - last 24 hr 04/28/22 04/28/22 04/29/22 15:40 19:21 06:23 WBC 7.4 RBC 5.48 Hgb 14.8 Hct 45.6 MCV 83.2 MCH 27.0 MCHC 32.5 RDW 14.1 Plt Count 311 MPV 9.7 Immature Gran % (Auto) 4.7 H Neut % (Auto) 48.8 Lymph % (Auto) 32.7 [place] % (Auto) 9.9 Eos % (Auto) 3.1 Baso % (Auto) 0.8 Lymph # (Auto) 2.4 [place] # (Auto) 0.7 Eos # (Auto) 0.2 Baso # (Auto) 0.1 Abs Immat Gran (auto) 0.35 H Absolute Neuts (auto) 3.6 Absolute Nucleated RBC 0.000 Nucleated RBC % (auto) 0.0 Sodium Potassium Chloride Carbon Dioxide Anion Gap BUN Creatinine Estim Creat Clear Calc Estimated GFR POC Glucose 189 H 176 H Random Glucose Calcium Total Bilirubin AST ALT Alkaline Phosphatase Total Protein Albumin Triglycerides Lipase 04/29/22 04/29/22 04/29/22 06:23 08:05 11:16 WBC RBC Hgb Hct MCV MCH MCHC RDW Plt Count MPV Immature Gran % (Auto) Neut % (Auto) Lymph % (Auto) [place] % (Auto) Eos % (Auto) Baso % (Auto) Lymph # (Auto) [place] # (Auto) Eos # (Auto) Baso # (Auto) Abs Immat Gran (auto) Absolute Neuts (auto) Absolute Nucleated RBC Nucleated RBC % (auto) Sodium 136 Potassium 4.5 Chloride 101 Carbon Dioxide 25 Anion Gap 15 BUN 12 Creatinine 0.82 Estim Creat Clear Calc 140.1 Estimated GFR > 60 POC Glucose 158 H 203 H Random Glucose 140 H Calcium 9.1 Total Bilirubin 0.5 AST 33 ALT 38 Alkaline Phosphatase 74 Total Protein 6.9 Albumin 3.4 L Triglycerides 591 Lipase 148 H Discharge Plan Discharge Anticipated Discharge Date/Time: 04/29/22 10:36 Patient Disposition: Home, Self-Care Discharge Diagnosis: acute pancreatitis acute duodenitis diabetic ketoacidosis acute kidney injury hypertriglyceridemia Referrals: Aurelio Sellers MD [Primary Care Provider] - 1 Week Kaden Krishnan MD [Physician] - 1 Week Discharge Medications: New omeprazole 40 mg Capsule,Delayed Release(Dr/Ec) 40 mg PO DAILY@0630 Qty: 30 0RF gemfibrozil 600 mg Tablet 600 mg PO BIDAC Qty: 60 0RF Continued allopurinol 300 mg tablet 300 mg PO DAILY 90 Days Qty: 90 1RF metformin 500 mg tablet 500 mg PO BID 30 Days Qty: 60 2RF Jardiance 10 mg tablet 10 mg PO QAM 30 Days Qty: 30 2RF insulin glargine [Lantus Solostar U-100 Insulin] 100 unit/mL (3 mL) insulin pen 20 unit subcut BEDTIME 30 Days Qty: 6 3RF (DME) pen needle, diabetic [BD Ultra-Fine Betzy Pen Needle] 32 gauge x 5/32 needle See Rx Instructions .ROUTE .MEDSUPPLY Qty: 100 5RF Rx Instructions: As directed once a day (DME) lancets [FreeStyle Lancets] 28 gauge misc See Rx Instructions .ROUTE .MEDSUPPLY Qty: 100 12RF Rx Instructions: As directed once a day (DME) FreeStyle Test Strip See Rx Instructions .ROUTE .MEDSUPPLY Qty: 100 12RF Rx Instructions: As directed once a day (DME) blood-glucose meter [FreeStyle Lite Meter] Kit See Rx Instructions .ROUTE .MEDSUPPLY Qty: 1 0RF Rx Instructions: As directed amlodipine 5 mg tablet 5 mg PO DAILY 90 Days Qty: 90 1RF Discontinued atorvastatin 40 mg tablet 40 mg PO DAILY 90 Days Qty: 90 1RF indomethacin 25 mg capsule 25 mg PO BID 90 Days Qty: 180 1RF aspirin 81 mg Tablet 81 mg PO DAILY lisinopril 40 mg tablet 40 mg PO DAILY 90 Days Qty: 90 1RF Rx Instructions: 1 tablet Orally Once a day Discharge Orders: Discharge Order (Routine); Ordered 04/29/22 Ordered By: Neo [place] Diet: Diabetic diet Activity on Discharge: As tolerated Stand Alone Forms: Patient Portal Discharge page Care Plan Goals: follow diabetic diet, exercise take all medications as prescribed apply warm compresses to left forearm, noted to have worsening redness fever call PCP or return to ED follow blood pressure noted to be elevated resume lisinopril low-dose as per PCP Health Concerns: diabetes /hypertriglyceridemia Plan of Treatment: follow-up with primary care physician call for an appointment Assessment: as above
== END 2022-04-29 12:51 | disposition home or self-care (01) | DRG 282 ==
LOC: HO.ED 12:59 → HO.EDOVER 14:17 → HO.ICU 19:42 → HO.IMC 04-27 17:43
PROVIDERS: Physician Assistant; Registered Nurse Community Health; Student in an Organized Health Care Education/Training Program; Admitting Provider Internal Medicine Pulmonary Disease; Emergency Provider Emergency Medicine; PCP Internal Medicine; Visit Provider Hospitalist
DX: K85.90 Acute pancreatitis without necrosis or infection, unspecified (principal); E11.10 Type 2 diabetes mellitus with ketoacidosis without coma; N17.9 Acute kidney failure, unspecified; E78.1 Pure hyperglyceridemia; G47.33 Obstructive sleep apnea (adult) (pediatric); J45.20 Mild intermittent asthma, uncomplicated; Z20.822 Contact with and (suspected) exposure to COVID-19; Z79.4 Long term (current) use of insulin; Z79.84 Long term (current) use of oral hypoglycemic drugs; Z79.899 Other long term (current) drug therapy
CPT/HCPCS: 36415; 71045; 74176; 74177; 74240; 74248; 80048; 80053; 80061; 80076; 81001; 82009; 82077; 82803; 82947; 83036; 83605; 83690; 83735; 84100; 84478; 84484; 85007; 85025; 85027; 87040; 87635; 93005; 96361; 96365; 96367; 96368; 96375; 99285; J1643; J2270; J2543; J3010; Q9967

== ENCOUNTER 2023-05-09 16:10 | Outpatient (AMB) | payer BC, SELFPAY ==
[2023-05-09 16:21] VITALS: BP 174/98; PULSE 90; O2SAT 99; BMI 30.4
--- NOTE | 2023-05-09 16:21 | MHC.PC.OV ---
Vital Signs 05/09/23 16:21 Height 5 ft 9 in Weight 206 lb BMI 30.4 BP 174/98 H Blood Pressure Location Lt brachial Position Sitting Pulse 90 Pulse Source Pulse Oximeter Pulse Oximetry (%) 99 Oxygen Delivery Method Room Air Intake Visit Reasons: follow up Boarding House Cook Required: No Assistant Manager: Not Required per policy Accompanied by: Self / Same As Patient Allergies codeine [CODEINE] Allergy (Unknown, Verified 05/09/23 16:59) UNKNOWN Medication List - Last Reconciled 05/09/23 by Aurelio Sellers MD allopurinol 300 mg PO DAILY 90 days amlodipine 5 mg PO DAILY 90 days blood sugar diagnostic (FreeStyle Test strips) As directed once a day blood-glucose meter (FreeStyle Lite Meter kit) As directed gemfibrozil 600 mg PO BID 90 days Jardiance (empagliflozin) 10 mg PO QAM 30 days NS lancets (FreeStyle Lancets) As directed once a day Lantus Solostar U-100 Insulin (insulin glargine) 20 units (0.2 mL) subcut BEDTIME 30 days NS metformin 500 mg PO BID pen needle, diabetic (BD Ultra-Fine Betzy Pen Needle) As directed once a day Tobacco use date assessed: 05/09/23 Dental Screening Dental Screen Date: 05/09/23 Did you have a dental visit in the last 12 months?: No Did you have a dental problem in the last 6 months where you did not have access to dental care?: No Was dental information given to patient?: Patient has dentist HPI follow up HPI Details Patient comes in today for his follow up visit - has not been back since June 17, 2022 States that he currently feels okay Relates that he stopped taking all of his meds for about 6 months as he wanted to try controlling his problems without medications as much as possible but states that he went back on his Rx about a month ago when he started experiencing increasing urinary frequency [place] that his blood sugar was well-controlled for a while when he was off his Rx He currently denies any acute symptoms - denies any headaches or dizziness Denies any chest pains, no SOB No nausea/vomiting, no abdominal pain No change in bowel habits noted [facility] Medical History Mixed hyperlipidemia Diabetes mellitus Abdominal pain Obesity (BMI 30-39.9) Renal calculi Obstructive sleep apnea Asthma Gout Pure hypercholesterolemia Benign essential hypertension Surgical History No pertinent past surgical history Family History Father Hypertension Stroke Mother Hypertension Maternal Grandfather Myocardial infarction Social History Household Members: None Housing: Apartment Do you presently have visiting nurse or other home services: No Alcohol intake: current Alcohol intake frequency: does not drink Patient Tobacco Use Status: Never used Tobacco Second Hand Smoke Exposure: Yes service: No Current occupational status: employed Cognitive needs: No Hearing needs: No Vision needs: Yes (glasses ) Questionnaire PHQ-9 Over the last 2 weeks, how often have you been bothered by any of the following problems? 1. Little interest or pleasure in doing things: not at all 2. Feeling down, depressed, or hopeless: not at all 3. Trouble falling or staying asleep, or sleeping too much: not at all 4. Feeling tired or having little energy: not at all 5. Poor appetite or overeating: not at all 6. Feeling bad about yourself - or that you are a failure or have let yourself or your family down: not at all 7. Trouble concentrating on things, such as reading the newspaper or watching television: not at all 8. Moving or speaking so slowly that other people could have noticed. Or the opposite - being so fidgety or restless that you have been moving around a lot more than usual: not at all 9. Thoughts that you would be better off or of hurting yourself in some way: not at all Total score: 0 Depression Screening Interpretation: Negative Depression Screening Done: Yes 13355 - PHQ-9 Billing: Yes Source: Developed by Drs. Sanjay Wetzel, Caterina Zaman, Sabino Gannon and colleagues, with an educational adolfo from [employer]. Thrive Questionnaire Date Thrive assessed: 05/09/23 I am a: Patient What is your living situation today?: I have a steady place to live Within the past 12 months, did the food you bought not last and you didn't have the money to get more?: Never true Within the past 12 months, did you worry whether your food would run out before you got money to buy more?: Never true Do you have trouble paying for medicines?: No Do you have trouble getting transportation to medical appointments?: No Do you have trouble paying your heating and electricity bill?: No Do you have trouble taking care of your child, family member or friend?: No Do you have trouble with day-to-day activities such as bathing, preparing meals, shopping, managing finances, etc.?: No Are you currently unemployed and looking for a job?: No Are you interested in more education?: No Please select the resources that you would like help with: None Currently or been in a relationship where the following occur: no concerns reported THRIVE Score: 0 AUDIT C Alcohol Use Questionnaire (AUDIT-C) 1. How often do you have a drink containing alcohol?: Monthly or less 2. How many drinks containing alcohol do you have on a typical day when you are drinking?: 1 or 2 3. How often do you have six or more drinks on one occasion?: Never Total Score: 1 Score Reviewed/Action Taken: Yes JADE-7 AMB Questionnaire JADE-7 Date JADE - 7 assessed: 05/09/23 Feeling nervous, anxious, or on edge: 0 = Not at all Not being able to stop or control worryin = Not at all Worrying too much about different things: 0 = Not at all Trouble relaxin = Not at all Being so restless that it is hard to sit still: 0 = Not at all Becoming easily annoyed or irritable: 0 = Not at all Feeling afraid as if something awful might happen: 0 = Not at all Total JADE-7 score (0-4 normal; 5-9 mild; 10-14 moderate; 15-21 severe): 0 Source: Developed by Drs. Sanjay Wetzel, Caterina Zaman, Sabino aGnnon and colleagues, with an educational adolfo from [employer]. Review of Systems Const Denies chills, Denies fatigue, Denies fever(s) and Denies headache(s) ENT Denies dysphagia, Denies dizziness, Denies otalgia, Denies headache(s), Denies neck pain, Denies odynophagia and Denies sore throat Card Denies chest pain, Denies palpitations and Denies dyspnea Resp Denies cough and Denies dyspnea GI Denies abdominal pain, Denies constipation, Denies dysphagia, Denies heartburn, Denies diarrhea, Denies nausea, Denies odynophagia and Denies vomiting Denies dysuria, Denies nocturia and Denies urinary frequency Musc Denies back pain and Denies neck pain Skin/Breast Denies rash Neuro Denies dizziness and Denies headache(s) Endo Denies fatigue and Denies palpitations Physical exam (Primary Care) Vital Signs: Last Vital Signs Pulse 90 05/09/23 16:21 BP 174/98 H 05/09/23 16:21 Pulse Ox 99 05/09/23 16:21 Oxygen Delivery Method Room Air 05/09/23 16:21 BMI result Body Mass Index 30.4 Tobacco/Smoking Status: Tobacco use Status Tobacco use date assessed 05/09/23 05/09/23 16:22 Patient Tobacco Use Status Never used Tobacco 05/09/23 16:22 PHQ-9: PHQ-9 Score PHQ-9: Total score 0 05/09/23 17:02 Depression Screening Interpretation: Negative Thrive Assessment: Date of Thrive Assessment Date Thrive assessed 05/09/23 05/09/23 16:22 Currently or been in a relationship where the following occur: no concerns reported Const General: no acute distress and alert HENMT Ears: TM's normal bilaterally and EAC's normal Throat: Yes posterior oropharynx normal and Yes tonsils normal (no TP congestion) Neck Neck: Yes no lymphadenopathy and Yes supple Resp Auscultation: clear to auscultation bilaterally, no rales and no wheezes Cardio Rate: regular rate Rhythm: regular rhythm Heart sounds: no murmurs GI Palpation (GI): Soft to palpation and nontender Auscultation: normal bowel sounds General: Yes no CVA tenderness Back/Spine/Pelvis Back: no CVA tenderness Skin Rashes: no rashes Extrem General: Yes no clubbing, cyanosis or edema Results AMB Hemoglobin A1c AMB Hemoglobin A1c 5.8 % Last Edit by OBDULIO Forman on 05/09/23 17:10 Results Reviewed Results Reviewed: Laboratory Last Values Hgb A1c (Clinic) 5.8 % (4.0-6.0) 03/11/24 17:00 Assessment and Plan Assessment & Plan (1) Diabetes mellitus: Code(s): E11.9 - Type 2 diabetes mellitus without complications Qualifiers: Diabetes mellitus complication status: with hyperglycemia Diabetes mellitus penitentiary insulin use: without termite inspector use Diabetes mellitus type: type 2 Qualified Code(s): E11.65 - Type 2 diabetes mellitus with hyperglycemia Plan: In-office HgbA1c done today is at 5.8%; was at 7.4% when he was last seen almost a year ago in May 2022 - goal is <7.0% Reinforced diabetic diet He was on Lantus Solostar 20 units Q HS and Jardiance 10 mg QD previously but he stopped taking all of his meds a while back and just started back on them about a month ago Have advised patient to just continue on Jardiance 10 mg QD for now and he can stop taking his Lantus at this time We will see how his diabetes control is over the next few months on monotherapy with Jardiance (2) Benign essential hypertension: Code(s): I10 - Essential (primary) hypertension Plan: Reinforced low sodium diet - goal is systolic BP of around 120 to 130 mm or less Have advised him to continue on his Amlodipine 5 mg QD for now - he was off his Rx for a while and just got back on them about a month ago (3) Mixed hyperlipidemia: Code(s): E78.2 - Mixed hyperlipidemia Plan: Will send patient to get his follow up labs done [facility] as he has not had any follow up labs done in over a year now Reinforced low cholesterol diet Continue Gemfibrozil 600 mg BID; was previously on Atorvastatin but this was discontinued at his last hospital admission Will recheck his labs and fasting lipids in 3 to 4 months for follow up (4) Acute duodenitis: Code(s): K29.80 - Duodenitis without bleeding Plan: Appears resolved and patient currently remains asymptomatic - this was likely brought about by his bout of acute pancreatitis last year Continue Omeprazole 40 mg QD (5) Gout: Code(s): M10.9 - Gout, unspecified Qualifiers: Chronicity: unspecified Gout etiology: idiopathic Gout site: unspecified site Qualified Code(s): M10.00 - Idiopathic gout, unspecified site Plan: Has had no acute gout flares lately Reinforced low purine diet Continue Allopurinol 300 mg QD Will recheck his serum uric acid level in a few months for follow up (6) Asthma: Code(s): J45.909 - Unspecified asthma, uncomplicated Qualifiers: Asthma complication type: uncomplicated Asthma persistence: intermittent Asthma severity: mild Qualified Code(s): J45.20 - Mild intermittent asthma, uncomplicated Plan: Stable; states that he has not needed to use his rescue inhaler in a while (7) Obstructive sleep apnea: Comment: Home sleep study done on 05/22/2015 revealed (+) [facility]; CPAP titration recommended Auto-CPAP with setting of 6-16 cm H2O Code(s): G47.33 - Obstructive sleep apnea (adult) (pediatric) Plan: Continue using his CPAP device when sleeping at night regularly Was following up with Sleep Medicine but has not seen them in a couple of years now (8) Renal calculi: Code(s): N20.0 - Calculus of kidney Plan: Reports that he has passed out kidney stones spontaneously a few times, most recently last year Is currently asymptomatic Renal US done in November 2021 showed NO renal stones (9) Obesity (BMI 30-39.9): Code(s): E66.9 - Obesity, unspecified Plan: Reinforced diet/exercise as tolerated/lose weight Plan Follow up in late July 2022 Orders: Orders [facility] [place]. Panel Fast 05/09/23 E78.00 - Pure hypercholesterolemia, unspecified Lipid Panel 05/09/23 E78.00 - Pure hypercholesterolemia, unspecified UA CC w/rflx Micro + Cult 05/09/23 R30.0 - Dysuria Uric Acid 05/09/23 M10.9 - Gout, unspecified Erythrocyte Sedimentation Rate 05/09/23 M79.7 - Fibromyalgia Vitamin D 25-OH Total 05/09/23 E55.9 - Vitamin D deficiency, unspecified Lipid Panel 4 Months E78.00 - Pure hypercholesterolemia, unspecified Hemoglobin A1c 4 Months E11.9 - Type 2 diabetes mellitus without complications UA CC w/rflx Micro + Cult 4 Months R30.0 - Dysuria AMB Hemoglobin A1c 05/09/23 Z13.9 - Encounter for screening, unspecified Complete Blood Count Auto Diff 05/09/23 D64.9 - Anemia, unspecified Microalbumin, Random (w Creat) 05/09/23 E11.9 - Type 2 diabetes mellitus without complications TSH reflex Free T4 05/09/23 E78.00 - Pure hypercholesterolemia, unspecified Vitamin B12 and Folate 05/09/23 E53.8 - Deficiency of other specified B group vitamins Comprehensive [place]. Panel Fast 4 Months E78.00 - Pure hypercholesterolemia, unspecified Microalbumin, Random (w Creat) 4 Months E11.9 - Type 2 diabetes mellitus without complications Medications: Changed From Jardiance 10 mg PO QAM 30 days 30 tabs 2RF NS To Jardiance (empagliflozin) 10 mg PO QAM 90 tabs 1RF 90 days NS Coding Level of Care Code Est Pt Level 4 (24985) Diagnoses Type 2 diabetes mellitus with hyperglycemia, without long-term current use of insulin E11.65 Diabetes mellitus complication status: with hyperglycemia Diabetes mellitus penitentiary insulin use: without termite inspector use Diabetes mellitus type: type 2 Benign essential hypertension I10 Mixed hyperlipidemia E78.2 Acute duodenitis K29.80 Idiopathic gout, unspecified chronicity, unspecified site M10.00 Chronicity: unspecified Gout etiology: idiopathic Gout site: unspecified site Mild intermittent asthma without complication J45.20 Asthma complication type: uncomplicated Asthma persistence: intermittent Asthma severity: mild Obstructive sleep apnea G47.33 Renal calculi N20.0 Obesity (BMI 30-39.9) E66.9
== END 2023-05-09 17:16 | disposition home or self-care (01) ==
PROVIDERS: PCP Internal Medicine; Visit Provider Internal Medicine
DX: R30.0 Dysuria (principal)
CPT/HCPCS: 83036; 99214

== ENCOUNTER 2023-08-13 15:12 | Emergency (ER) | payer BC, SELFPAY ==
[2023-08-13] VITALS (10 sets, daily range): BP systolic 153–202; BP diastolic 99–131; PULSE 82–110; RESP 16–18; TEMP 36.6–37; O2SAT 97–99; BMI 30.2
--- NOTE | 2023-08-13 15:18 | ED_ITS ---
HPI - General Adult General Chief complaint: General Medical Stated complaint: High BP Time Seen by Provider: 08/13/23 16:36 Source: patient Mode of arrival: ambulatory Limitations: no limitations History of Present Illness ED Provider: Dr. Ruth Ann Marcano HPI narrative: Patient comes to the emergency room complaining of high blood pressure. 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 Patient is supposed to be taking amlodipine 10 mg daily. It has been over a month since he has not had any blood pressure medications. Patient states that earlier this morning, he woke up with a headache, check his blood pressure which was high. Patient states that the headache started to come down, eventually was feeling better, went on with his day. Patient states he took his blood pressures have all times, and noted that his blood pressure was above 200 therefore decided to come to the hospital. Patient denies any visual changes, no chest pain or shortness of breath. No lower extremity edema. Related Data Previous Rx's ?Medication ?Instructions ?Recorded blood sugar diagnostic (FreeStyle #100 ea 04/19/22 Test strips) blood-glucose meter (FreeStyle #1 ea 04/19/22 Lite Meter kit) lancets 28 gauge (FreeStyle #100 ea 04/19/22 Lancets) pen needle, diabetic 32 gauge x #100 ea 04/19/2232 (BD Ultra-Fine Betzy Pen Needle) amlodipine 5 mg tablet 5 mg PO DAILY 90 days #90 tabs 06/03/22 metformin 500 mg tablet 500 mg PO BID #180 tabs 10/25/22 allopurinol 300 mg tablet 300 mg PO DAILY 90 days #90 tabs 11/16/22 Lantus Solostar U-100 Insulin 100 20 unit (0.2 mL) subcut BEDTIME 30 01/15/23 unit/mL (3 mL) subcutaneous pen days #6 mL (insulin glargine) Jardiance 10 mg tablet 10 mg PO QAM 90 days #90 tabs 05/09/23 (empagliflozin) gemfibrozil 600 mg tablet 600 mg PO BID 90 days #180 tabs 07/09/23 amlodipine 10 mg tablet 10 mg PO DAILY #90 tabs 08/13/23 lisinopril 40 mg tablet 40 mg PO DAILY #90 tabs 08/13/23 Allergies Allergy/AdvReac Type Severity Reaction Status Date / Time codeine [CODEINE] Allergy Unknown UNKNOWN Verified 08/13/23 15:20 Review of Systems 2 Review of Systems: Constitutional : No Weight loss, No Fever, No Chills, No Night Sweats, No Fatigue, No Malaise ENT/Mouth : No Hearing loss, No Ear Pain, No Nasal Congestion, No Sinus Pain, No Hoarseness, No sore throat, No Rhinorrhea, No Swallowing Difficulty Eyes: No Eye Pain, No Swelling, No Redness, No Foreign Body, No Discharge, No Vision Changes Cardiovascular : No Chest Pain, No SOB, No Dyspnea on Exertion, No Orthopnea, No Edema, No Palpitations, complaining of high blood pressure Respiratory : No Cough, No Sputum, No Wheezing, No Smoke Exposure, No Dyspnea Gastrointestinal : No Nausea, No Vomiting, No Diarrhea, No Constipation, No abdominal Pain, No Hematochezia, No Melena Genitourinary : no irregular bleeding, No Dysuria, No Urinary Frequency, No Hematuria, No Urinary Incontinence, No Urgency, No Flank Pain, No Urinary Flow Changes, No Hesitancy Musculoskeletal : No joint pain, No Myalgias, No Joint Swelling Skin : No Skin Lesions, No rash Neuro : No Weakness, No Numbness, No Paresthesias, No Loss of Consciousness, No Dizziness, complaining of Headache which self-resolved Psych : No Anxiety/Panic, No Depression, No SI/HI/AH/VH, No Social Issues, Heme/Lymph: No Bruising, No Bleeding,No Lymphadenopathy Endocrine : No Polyuria, No Polydipsia, No Temperature Intolerance [facility] Past Medical History Medical History Mixed hyperlipidemia Diabetes mellitus Abdominal pain Obesity (BMI 30-39.9) Renal calculi Obstructive sleep apnea Asthma Gout Pure hypercholesterolemia Benign essential hypertension Surgical History No pertinent past surgical history Family History Family History Father Hypertension Stroke Mother Hypertension Maternal Grandfather Myocardial infarction Social History Social History Household Members: None Housing: Apartment Do you presently have visiting nurse or other home services: No Alcohol intake: current Alcohol intake frequency: a few times a month Patient Tobacco Use Status: Never used Tobacco Smoked in Last 30 Days: No Second Hand Smoke Exposure: Yes Use of substances other than those prescribed or required for medical reasons: No Advance Directives: No Advance Directives Information Provided: No service: No Current occupational status: employed Cognitive needs: No Hearing needs: No Vision needs: Yes (glasses ) Physical Exam ED Vital Signs: Vital Signs - 24 hr 08/13/23 15:18 08/13/23 16:10 08/13/23 16:15 Temperature 97.8 F Pulse Rate 110 H 100 Respiratory Rate 16 18 Blood Pressure 202/131 H 185/124 H 185/124 H Pulse Oximetry 99 Oxygen Delivery Method Room Air 08/13/23 17:29 08/13/23 17:49 08/13/23 18:44 Temperature 98.6 F Pulse Rate 101 H Respiratory Rate 16 Blood Pressure 182/118 H 174/119 H 171/111 H Pulse Oximetry 97 Oxygen Delivery Method Room Air 08/13/23 20:00 08/13/23 21:01 08/13/23 22:41 Temperature Pulse Rate 89 Respiratory Rate Blood Pressure 161/111 H 172/112 H 153/99 H Pulse Oximetry Oxygen Delivery Method BMI result Body Mass Index 30.2 Const Other: Appearance: Alert. Oriented X3. No acute distress. Eyes: Pupils equal, round and reactive to light. ENT: Pharynx normal. Neck: Normal inspection. Neck supple. No lymph nodes noted. No crepitus CVS: Normal heart rate and rhythm. Pulses normal. Normal S1 and S2 Respiratory: No respiratory distress. Breath sounds normal. No Wheezing. No rales Abdomen: Soft and nontender. No rigidity. No distention. Skin: Skin warm and dry. Normal skin color. Normal skin turgor. Extremities: No lower extremity edema. No Lacerations. No Rash Neuro: Oriented X 3. No motor deficit. No sensory deficit. Moving all extremities. No slurred speech. CN 2 through 12 grossly intact Psych: calm, cooperative, normal affect Course Course Course Narrative: This is a Rapid Medical Examination (RME) performed by Liam Roberts PA-C in triage. Full HPI, ROS, assessment and treatment plan per primary provider in the Main ED. 38 yo male with history of HTN presenting for evaluation of elevated BP at home in the setting of being off of his BP meds at home for the last 1 month. He was formerly on He has a slight headache. No vision changes or chest pain. BP at home 200s systolic. BP in triage 202/131 with HR 110s. He appears well. Plan: labs, UA, EKG, treat HTN and reassess Medications Administered Discontinued Medications Generic Name Dose Route Start Last Admin Trade Name Rosangela PRN Reason Stop Dose Admin Amlodipine Besylate 10 mg 08/13/23 15:23 08/13/23 16:15 Amlodipine Besylate 10 Mg Tablet PO 08/13/23 15:24 10 mg ONCE ONE Administration Protocol Labetalol HCl 100 mg 08/13/23 18:58 08/13/23 21:01 Labetalol Hcl 100 Mg Tablet PO 08/13/23 18:59 100 mg ONCE ONE Administration Protocol Lisinopril 40 mg 08/13/23 17:10 08/13/23 17:29 Lisinopril 40 Mg Tablet PO 08/13/23 17:11 40 mg ONCE ONE Administration Protocol Medical Decision Making Medical Decision Making [facility] Narrative: -my interpretation of labs: Patient's white blood cell count slightly elevated violent 0.1, hemoglobin 18.3, hematocrit 52.8,, chemistry within normal limits, troponin negative, LFTs within normal limits -my interpretation of the echocardiogram: Sinus tachycardia, heart rate 104, no ST segment depression or elevation, no T-wave inversion, QTC 447 -patient's blood pressure after 10 mg of amlodipine was 199/101. Patient was given lisinopril 40 mg -patient's blood pressure did not improve much, patient needed 100 mg p.o. labetalol 100 mg, patient's blood pressure improved, 153/99 -patient is asymptomatic, no chest pain or shortness of breath, no headache, no nausea vomiting Differential Diagnosis Differential Diagnoses: The differential diagnosis associated with the presentation includes (Hypertensive urgency, medication noncompliance) Admission/Observation Consideration of admission/observation: Escalation of care including admission/observation considered (Given patient's elevated blood pressure, admission/observation considered) Lab Data [facility] Lab Attestation statement: I reviewed the patient's lab results. 08/13/23 15:34 08/13/23 15:34 Labs: Lab Results 08/13/23 Range/Units 15:34 WBC 11.1 H (4.8-10.8) X10*3/uL RBC 6.44 H (4.60-5.80) X10*6/uL Hgb 18.3 H D (14.0-18.0) g/dl Hct 52.8 H (42.0-52.0) % MCV 82.0 (80.0-98.0) fL MCH 28.4 (27.0-33.0) pg MCHC 34.7 (31.0-36.0) g/dl RDW 13.9 (11.0-16.0) % Plt Count 231 D (160-400) X10*3/uL MPV 11.0 (9.4-12.4) fL Immature Gran % (Auto) 0.5 H (0.0-0.4) % Neut % (Auto) 64.8 (45-73) % Lymph % (Auto) 26.7 (20-40) % [place] % (Auto) 6.2 (2-11) % Eos % (Auto) 1.2 (0-4) % Baso % (Auto) 0.6 (0-2) % Lymph # (Auto) 3.0 (1.2-4.9) X10*3/uL [place] # (Auto) 0.7 (0.1-1.2) X10*3/uL Eos # (Auto) 0.1 (0.0-0.4) X10*3/uL Baso # (Auto) 0.1 (0.0-0.2) X10*3/uL Abs Immat Gran (auto) 0.06 H (0.00-0.03) X10*3/uL Absolute Neuts (auto) 7.2 (2.0-8.3) x10*3/uL Absolute Nucleated RBC 0.000 (0.0-0.012) X10*3/uL Nucleated RBC % (auto) 0.0 (0.0-0.2) /100WBC Sodium 139 (135-145) mmol/L Potassium 3.7 (3.3-5.1) mmol/L Chloride 101 (96-108) mmol/L Carbon Dioxide 25 (22-29) mmol/L Anion Gap 17 (12-20) BUN 11 (9-16) mg/dL Creatinine 1.04 (0.5-1.4) mg/dL Estim Creat Clear Calc 106.2 Estimated GFR > 60 Random Glucose 115 (60-115) mg/dL Calcium 9.9 D (8.4-10.2) mg/dL Magnesium 1.9 (1.6-2.6) mg/dL Total Bilirubin 0.6 (0.0-1.0) mg/dL Direct Bilirubin 0.1 (0.0-0.5) mg/dL AST 22 (5-37) U/L ALT 36 (0-40) U/L Alkaline Phosphatase 85 (39-117) U/L Troponin I High Sens < 2.7 (<3.5-35.0) ng/L Total Protein 8.7 H (6.5-8.0) g/dL Albumin 4.7 (3.5-5.0) g/dL Critical Care Time Critical Care Time Critical Care Time: Yes Total Critical Care Time: 70 Attestation: I have personally provided critical care time. Time includes review of lab data, radiology results, discussion with consultants, and monitoring for potential decompensation. Intervention performed as documented. Discharge Plan Discharge Clinical Impression: Uncontrolled hypertension Patient Disposition: Home, Self-Care Instructions: Hypertension (ED) Additional Instructions: Please follow-up with your primary care physician tomorrow. If you have any worsening or new symptoms, please return to the emergency room or call 911 Prescriptions: New amlodipine 10 mg tablet 10 mg PO DAILY Qty: 90 0RF lisinopril 40 mg tablet 40 mg PO DAILY Qty: 90 0RF No Action amlodipine 5 mg tablet 5 mg PO DAILY 90 Days Qty: 90 1RF metformin 500 mg tablet 500 mg PO BID Qty: 180 0RF allopurinol 300 mg tablet 300 mg PO DAILY 90 Days Qty: 90 1RF insulin glargine [Lantus Solostar U-100 Insulin] 100 unit/mL (3 mL) insulin pen 20 unit subcut BEDTIME 30 Days Qty: 6 3RF gemfibrozil 600 mg tablet 600 mg PO BID 90 Days Qty: 180 1RF (DME) pen needle, diabetic [BD Ultra-Fine Betzy Pen Needle] 32 gauge x 5/32 needle See Rx Instructions .ROUTE .MEDSUPPLY Qty: 100 5RF Rx Instructions: As directed once a day (DME) lancets [FreeStyle Lancets] 28 gauge misc See Rx Instructions .ROUTE .MEDSUPPLY Qty: 100 12RF Rx Instructions: As directed once a day (DME) FreeStyle Test Strip See Rx Instructions .ROUTE .MEDSUPPLY Qty: 100 12RF Rx Instructions: As directed once a day (DME) blood-glucose meter [FreeStyle Lite Meter] Kit See Rx Instructions .ROUTE .MEDSUPPLY Qty: 1 0RF Rx Instructions: As directed Jardiance 10 mg tablet 10 mg PO QAM 90 Days Qty: 90 1RF Print Language: Portuguese
--- NOTE | 2023-08-13 15:20 | ECG_ITS ---
Test Reason : HYPERTENSION Blood Pressure : / mmHG Vent. Rate : 104 BPM Atrial Rate : 104 BPM P-R Int : 158 ms QRS Dur : 090 ms QT Int : 340 ms P-R-T Axes : 057 -11 049 degrees QTc Int : 447 ms Sinus tachycardia Possible Left atrial enlargement Borderline ECG When compared with ECG of 21-APR-2022 11:54, No significant changes seen Referred By: Lizette Roberts Electronically Signed By:BILLY WELLER
[2023-08-13 15:38] LABS: MANUAL DIFF FLAG NO
[2023-08-13 15:57] LABS: Basophils Absolute Auto 0.1 X10*3/uL (0.0-0.2); Basophils Percent Auto 0.6 % (0-2); Eosinophils Absolute Auto 0.1 X10*3/uL (0.0-0.4); Eosinophils Percent Auto 1.2 % (0-4); Hematocrit 52.8 % (42.0-52.0); Hemoglobin 18.3 g/dl (14.0-18.0); Imm Gran Abs Auto 0.06 X10*3/uL (0.00-0.03); Imm Gran Pct Auto 0.5 % (0.0-0.4); Lymphocytes Percent Auto 26.7 % (20-40); Mean Corpuscular HGB Conc 34.7 g/dl (31.0-36.0); Mean Corpuscular Hemoglobin 28.4 pg (27.0-33.0); Monocytes Absolute Auto 0.7 X10*3/uL (0.1-1.2); Monocytes Percent Auto 6.2 % (2-11); Neutrophils Absolute Auto 7.2 x10*3/uL (2.0-8.3); Neutrophils Percent Auto 64.8 % (45-73); Platelet Count 231 X10*3/uL (160-400); Red Blood Count 6.44 X10*6/uL (4.60-5.80); Red Cell Distribution Width 13.9 % (11.0-16.0); White Blood Count 11.1 X10*3/uL (4.8-10.8)
[2023-08-13 16:03] LABS: Alanine Aminotransferase 36 U/L (0-40); Albumin Level 4.7 g/dL (3.5-5.0); Alkaline Phosphatase 85 U/L (39-117); Anion Gap 17 (12-20); Aspartate Amino Transferase 22 U/L (5-37); Bilirubin Direct 0.1 mg/dL (0.0-0.5); Bilirubin Total 0.6 mg/dL (0.0-1.0); Blood Urea Nitrogen 11 mg/dL (9-16); Calcium 9.9 mg/dL (8.4-10.2); Carbon Dioxide 25 mmol/L (22-29); Chloride 101 mmol/L (96-108); Creatinine Clr Calc Pharmacy 106.2; Estimated Glomerular Filt Rate > 60; Glucose Random 115 mg/dL (60-115); Magnesium 1.9 mg/dL (1.6-2.6); Potassium 3.7 mmol/L (3.3-5.1); Sodium 139 mmol/L (135-145); Total Protein 8.7 g/dL (6.5-8.0)
[2023-08-13 16:10] LABS: Troponin-I High Sensitivity < 2.7 ng/L (<3.5-35.0)
[2023-08-13] MEDS: amLODIPine Besylate 10 MG TABLET PO (16:15)
--- NOTE | 2023-08-13 16:38 | PC.NURSE ---
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 Pt is a/ox4, denies neuro symptoms at this time. Is able to check BP at home, and saw how elevated it was today and came for eval. Awaiting provider a this time.
[2023-08-13] MEDS: lisinopriL 40 MG TABLET PO (17:29)
--- NOTE | 2023-08-13 19:45 | PC.NURSE ---
Assumed care of pt. pt lying on stretcher, no acute distress, endrosing mild headache. pPreparing to medicate per orders and monitor SBP.
[2023-08-13] MEDS: Labetalol HCL 100 MG TABLET PO (21:01)
== END 2023-08-13 23:22 | disposition home or self-care (01) ==
PROVIDERS: Physician Assistant; Emergency Provider Emergency Medicine; PCP Internal Medicine
DX: I10 Essential (primary) hypertension (principal); E11.9 Type 2 diabetes mellitus without complications; E78.00 Pure hypercholesterolemia, unspecified; Z79.84 Long term (current) use of oral hypoglycemic drugs; Z79.4 Long term (current) use of insulin; Z79.899 Other long term (current) drug therapy
CPT/HCPCS: 36415; 80048; 80076; 83735; 84484; 85025; 93005; 99283; 99285

== ENCOUNTER → 2023-08-13 15:20 | Outpatient (BNV) | payer BC, SELFPAY | PROVIDERS: Emergency Provider Emergency Medicine; PCP Internal Medicine; Visit Provider Internal Medicine | DX: I10 Essential (primary) hypertension (principal) | CPT/HCPCS: 93010 ==

== ENCOUNTER 2023-12-12 14:54 | Outpatient (AMB) | payer BC, SELFPAY ==
[2023-12-12 15:25] VITALS: BP 146/80; PULSE 107; O2SAT 98; BMI 31.5
--- NOTE | 2023-12-12 15:25 | A.OFFPC_ITS ---
Vital Signs 12/12/23 15:25 Height 5 ft 9 in Weight 213 lb 2 oz BMI 31.5 BP 146/80 H Blood Pressure Location Lt brachial Position Sitting Pulse 107 H Pulse Source Pulse Oximeter Pulse Oximetry (%) 98 Oxygen Delivery Method Room Air Intake Visit Reasons: annual exam Relay Checker Required: No Accompanied by: Self / Same As Patient Allergies codeine [CODEINE] Allergy (Unknown, Verified 12/12/23 16:00) UNKNOWN Medication List - Last Reconciled 12/12/23 by Aurelio Sellers MD allopurinol 300 mg PO DAILY 90 days amlodipine 5 mg PO DAILY 90 days amlodipine 10 mg PO DAILY blood sugar diagnostic (FreeStyle Test strips) As directed once a day blood-glucose meter (FreeStyle Lite Meter kit) As directed gemfibrozil 600 mg PO BID 90 days Jardiance (empagliflozin) 10 mg PO QAM 90 days NS lancets (FreeStyle Lancets) As directed once a day Lantus Solostar U-100 Insulin (insulin glargine) 20 units (0.2 mL) subcut BEDTIME 30 days NS lisinopril 40 mg PO DAILY metformin 500 mg PO BID pen needle, diabetic (BD Ultra-Fine Betzy Pen Needle) As directed once a day Tobacco use date assessed: 12/12/23 Dental Screening Dental Screen Date: 12/12/23 Did you have a dental visit in the last 12 months?: No Did you have a dental problem in the last 6 months where you did not have access to dental care?: No Was dental information given to patient?: No HPI annual exam HPI Details Patient comes in today for his annual physical examination States that he has been feeling depressed for a while (a few years at least) but it took him a long time to realize and admits to his depression and would now like some help to get this controlled better Relates that he had the impression previously that all of the medications used to treat depression have very bad side effects, including hallucinations, so he has been doing everything he can to avoid having to take them States that he has a tendency to self-isolate at home, sometimes for weeks at a time, when he gets very depressed States that physically, he feels okay He denies any headaches or dizziness Denies any chest pains, no shortness of breath No nausea/vomiting, no abdominal pain No change in bowel habits noted He denies any acute urinary symptoms States that he will need several of his current Rx refilled PFSH Medical History (Updated 12/13/23 @ 05:50 by Aurelio Sellers MD) Diabetes mellitus Major depression, recurrent, chronic Mixed hyperlipidemia Abdominal pain Obesity (BMI 30-39.9) Renal calculi Obstructive sleep apnea Asthma Gout Pure hypercholesterolemia Benign essential hypertension Surgical History No pertinent past surgical history Family History Father Hypertension Stroke Mother Hypertension Maternal Grandfather Myocardial infarction Social History Household Members: None Housing: Apartment Do you presently have visiting nurse or other home services: No Alcohol intake: current Alcohol intake frequency: a few times a month Patient Tobacco Use Status: Never used Tobacco Second Hand Smoke Exposure: Yes service: No Current occupational status: employed Cognitive needs: No Hearing needs: No Vision needs: Yes (glasses ) Questionnaire PHQ-9 Over the last 2 weeks, how often have you been bothered by any of the following problems? 1. Little interest or pleasure in doing things: not at all 2. Feeling down, depressed, or hopeless: nearly every day 3. Trouble falling or staying asleep, or sleeping too much: nearly every day 4. Feeling tired or having little energy: several days 5. Poor appetite or overeating: not at all 6. Feeling bad about yourself - or that you are a failure or have let yourself or your family down: not at all 7. Trouble concentrating on things, such as reading the newspaper or watching television: nearly every day 8. Moving or speaking so slowly that other people could have noticed. Or the opposite - being so fidgety or restless that you have been moving around a lot more than usual: not at all 9. Thoughts that you would be better off or of hurting yourself in some way: several days Total score: 11 Depression Screening Interpretation: Positive Depression Screening Follow-up: Existing condition, New Medication prescribed and Community Mental Health Worker F/U Depression Screening Done: Yes 20532 - PHQ-9 Billing: Yes Source: Developed by Drs. Sanjay Wetzel, Caterina Zaman, Sabino Gannon and colleagues, with an educational adolfo from [employer]. Thrive Questionnaire Date Thrive assessed: 12/12/23 I am a: Patient What is your living situation today?: I have a steady place to live Within the past 12 months, did the food you bought not last and you didn't have the money to get more?: Never true Within the past 12 months, did you worry whether your food would run out before you got money to buy more?: Never true Do you have trouble paying for medicines?: No Do you have trouble getting transportation to medical appointments?: No Do you have trouble paying your heating and electricity bill?: No Do you have trouble taking care of your child, family member or friend?: No Do you have trouble with day-to-day activities such as bathing, preparing meals, shopping, managing finances, etc.?: No Are you currently unemployed and looking for a job?: No Are you interested in more education?: No Please select the resources that you would like help with: None Currently or been in a relationship where the following occur: Controlled Emotionally and No concerns reported THRIVE Score: 1 AUDIT C Alcohol Use Questionnaire (AUDIT-C) 1. How often do you have a drink containing alcohol?: Monthly or less 2. How many drinks containing alcohol do you have on a typical day when you are drinking?: 1 or 2 3. How often do you have six or more drinks on one occasion?: Never Total Score: 1 Score Reviewed/Action Taken: Yes JADE-7 AMB Questionnaire JADE-7 Date JADE - 7 assessed: 12/12/23 Feeling nervous, anxious, or on edge: 1 = Several days Not being able to stop or control worryin = Several days Worrying too much about different things: 3 = Nearly every day Trouble relaxin = Not at all Being so restless that it is hard to sit still: 0 = Not at all Becoming easily annoyed or irritable: 1 = Several days Feeling afraid as if something awful might happen: 0 = Not at all Total JADE-7 score (0-4 normal; 5-9 mild; 10-14 moderate; 15-21 severe): 6 Source: Developed by Caterina Mcelroy, Sabino Gannon and colleagues, with an educational adolfo from [employer]. Review of Systems Const Denies chills, Denies fatigue, Denies fever(s), Denies headache(s), Denies malaise and Denies weakness Eyes Denies blurry vision, Denies change in vision, Denies irritation and Denies itchy eyes ENT Denies dysphagia, Denies dizziness, Denies otalgia, Denies headache(s), Denies nasal congestion, Denies neck pain, Denies odynophagia and Denies sore throat Card Denies chest pain, Denies rapid heart rate, Denies irregular heart rhythm, Denies palpitations and Denies dyspnea Resp Denies chest congestion, Denies cough, Denies dyspnea and Denies wheezing GI Denies abdominal pain, Denies bloating, Denies constipation, Denies dysphagia, Denies heartburn, Denies diarrhea, Denies nausea, Denies odynophagia and Denies vomiting Denies hematuria, Denies difficulty urinating, Denies dysuria, Denies urinary frequency and Denies urinary urgency Musc Denies back pain, Denies arthralgias, Denies joint swelling, Denies muscle weakness and Denies neck pain Skin/Breast Denies change in pigmentation, Denies lesions, Denies rash and Denies unusual bruising Neuro Denies dizziness, Denies headache(s), Denies paresthesias and Denies weakness Psych Reports depression (increasing) Endo Denies fatigue and Denies palpitations Aller/Immun Denies itchy eyes and Denies wheezing Physical exam (Primary Care) Vital Signs: Last Vital Signs Pulse 107 H 12/12/23 15:25 BP 146/80 H 12/12/23 15:25 Pulse Ox 98 12/12/23 15:25 Oxygen Delivery Method Room Air 12/12/23 15:25 BMI result Body Mass Index 31.5 Tobacco/Smoking Status: Tobacco use Status Tobacco use date assessed 12/12/23 12/12/23 15:31 Patient Tobacco Use Status Never used Tobacco 12/12/23 15:31 PHQ-9: PHQ-9 Score PHQ-9: Total score 11 12/12/23 16:01 Depression Screening Interpretation: Positive Depression Screening Follow-up: Existing condition, New Medication prescribed and Community Mental Health Worker F/U Thrive Assessment: Date of Thrive Assessment Date Thrive assessed 12/12/23 12/12/23 15:31 Currently or been in a relationship where the following occur: Controlled Emotionally and No concerns reported Const General: no acute distress, alert and awake Orientation/consciousness: patient oriented x3 HENMT Head: Yes normocephalic and Yes atraumatic Ears: external ears normal, TM's normal bilaterally and EAC's normal General nose exam: No nasal discharge present Face and sinus: Yes normal facial exam and Yes sinuses nontender Teeth and gingiva: dentition normal Throat: Yes posterior oropharynx normal and Yes tonsils normal (no TP congestion) Eyes Eyelids: Yes eyelids normal Conjunctivae: conjunctivae normal Pupils: Equal, round and reactive pupils present EOM: EOMs intact bilaterally Neck Neck: Yes no lymphadenopathy and Yes supple Thyroid: Thyroid normal Resp Auscultation: clear to auscultation bilaterally, no rales and no wheezes Cardio Rate: regular rate Rhythm: regular rhythm Heart sounds: no murmurs GI Palpation (GI): Soft to palpation, nontender and No hepatosplenomegaly present Auscultation: normal bowel sounds General: Yes no CVA tenderness Back/Spine/Pelvis Back: no CVA tenderness Thoracic/Lumbar Spine: thoracic and lumbar spine normal to inspection Skin Lesions: no lesions Rashes: no rashes Neuro General: patient oriented x3, moves all extremities, no focal motor deficits and CN's II-XI intact bilaterally Cranial nerves: Yes Equal, round and reactive pupils present Cognition (Neuro): normal cognition Gait exam (Neuro): Normal gait present Extrem General: Yes no clubbing, cyanosis or edema Coding Level of Care Code Est Pt Prev Care 40-64y(05069) Diagnoses Annual physical exam Z00.00 Type 2 diabetes mellitus with hyperglycemia, without long-term current use of insulin E11.65 Diabetes mellitus type: type 2 Diabetes mellitus termite control service representative insulin use: without skilled nursing use Diabetes mellitus complication status: with hyperglycemia Benign essential hypertension I10 Mixed hyperlipidemia E78.2 Duodenitis K29.80 Idiopathic gout, unspecified chronicity, unspecified site M10.00 Gout site: unspecified site Gout etiology: idiopathic Chronicity: unspecified Mild intermittent asthma without complication J45.20 Asthma severity: mild Asthma persistence: intermittent Asthma complication type: uncomplicated Obstructive sleep apnea G47.33 Polycythemia D75.1 Renal calculi N20.0 Major depression, recurrent, chronic F33.9 Obesity (BMI 30-39.9) E66.9 Assessment & Plan Assessment & Plan (1) Annual physical exam: Code(s): Z00.00 - Encounter for general adult medical examination without abnormal findings Category: Medical Plan: Check labs (2) Diabetes mellitus: Code(s): E11.9 - Type 2 diabetes mellitus without complications Category: Medical Qualifiers: Diabetes mellitus type: type 2 Diabetes mellitus termite control service representative insulin use: without termite control service representative use Diabetes mellitus complication status: with hyperglycemia Qualified Code(s): E11.65 - Type 2 diabetes mellitus with hyperglycemia Plan: His in-office HgbA1c was at 5.8% back in April 2023; was at 7.4% when he was last seen almost a year ago in May 2022 - goal is <7.0% Reinforced diabetic diet He was previously on Lantus Solostar 20 units Q HS, Metformin 500 mg BID and Jardiance 10 mg QD but he stopped taking all of his meds a while back and just started back on them earlier this year Continue Jardiance 10 mg QD, Lantus 20 units Q HS and Metformin 500 mg BID (3) Benign essential hypertension: Code(s): I10 - Essential (primary) hypertension Category: Medical Plan: Reinforced low sodium diet - goal is systolic BP of around 120 to 130 mm or less Continue Amlodipine 5 mg QD Patient is reminded to monitor his blood pressure regularly (4) Mixed hyperlipidemia: Code(s): E78.2 - Mixed hyperlipidemia Category: Medical Plan: Reinforced low cholesterol diet Continue Gemfibrozil 600 mg BID; he was previously on Atorvastatin but this was discontinued at his last hospital admission Will recheck his labs and fasting lipids LYNN for follow up (5) Duodenitis: Code(s): K29.80 - Duodenitis without bleeding Category: Medical Plan: Appears resolved and patient currently remains asymptomatic - this was likely brought about by his bout of acute pancreatitis last year Continue Omeprazole 40 mg QD (6) Gout: Code(s): M10.9 - Gout, unspecified Category: Medical Qualifiers: Gout site: unspecified site Gout etiology: idiopathic Chronicity: unspecified Qualified Code(s): M10.00 - Idiopathic gout, unspecified site Plan: He has had no acute gout flares lately Reinforced low purine diet Continue Allopurinol 300 mg QD Will recheck his serum uric acid level for follow up (7) Asthma: Code(s): J45.909 - Unspecified asthma, uncomplicated Category: Medical Qualifiers: Asthma severity: mild Asthma persistence: intermittent Asthma complication type: uncomplicated Qualified Code(s): J45.20 - Mild intermittent asthma, uncomplicated Plan: Stable; states that he has not needed to use his rescue inhaler in a while (8) Obstructive sleep apnea: Comment: Home sleep study done on 05/22/2015 revealed (+) [facility]; CPAP titration recommended Auto-CPAP with setting of 6-16 cm H2O Code(s): G47.33 - Obstructive sleep apnea (adult) (pediatric) Category: Medical Plan: Continue using his CPAP device when sleeping at night regularly Was following up with Sleep Medicine but has not seen them in a couple of years now (9) Polycythemia: Code(s): D75.1 - Secondary polycythemia Category: Medical Plan: This was again noted on his recent labs from a few months ago Will send him for some additional labs LYNN for further evaluation (10) Renal calculi: Code(s): N20.0 - Calculus of kidney Category: Medical Plan: He reports passing out kidney stones spontaneously a few times, most recently last year He is currently asymptomatic Renal US done in November 2021 showed NO renal stones Follow up with urology as scheduled (11) Major depression, recurrent, chronic: Code(s): F33.9 - Major depressive disorder, recurrent, unspecified Category: Medical Plan: Will go ahead and start him for now on Citalopram 10 mg QD - he is advised that this has to be taking everyday for it to work Will also refer him to psychiatry for further evaluation and management and counseling (12) Obesity (BMI 30-39.9): Code(s): E66.9 - Obesity, unspecified Category: Medical Plan: Reinforced diet/exercise as tolerated/lose weight Plan Follow up in 2 months Orders: Orders Comprehensive [place]. Panel Fast 12/12/23 E78.00 - Pure hypercholesterolemia, unspecified, Z00.00 - Encounter for general adult medical examination without abnormal findings UA CC w/rflx Micro + Cult 12/12/23 R30.0 - Dysuria, Z00.00 - Encounter for general adult medical examination without abnormal findings Vitamin D 25-OH Total 12/12/23 E55.9 - Vitamin D deficiency, unspecified, Z00.00 - Encounter for general adult medical examination without abnormal findin gs Vitamin B12 and Folate 12/12/23 E53.8 - Deficiency of other specified B group vitamins, Z00.00 - Encounter for general adult medical examination without abnormal findings Prostate Specific Antigen Scr 12/12/23 Z00.00 - Encounter for general adult medical examination without abnormal findings Erythropoietin (EPO) 12/12/23 D75.1 - Secondary polycythemia Complete Blood Count Auto Diff 12/12/23 D64.9 - Anemia, unspecified, Z00.00 - Encounter for general adult medical examination without abnormal findings TSH reflex Free T4 12/12/23 E78.00 - Pure hypercholesterolemia, unspecified, Z00.00 - Encounter for general adult medical examination without abnormal findi ngs Microalbumin, Random (w Creat) 12/12/23 E11.9 - Type 2 diabetes mellitus without complications, Z00.00 - Encounter for general adult medical examination without abnormal findings Lipid Panel 12/12/23 E78.00 - Pure hypercholesterolemia, unspecified, Z00.00 - Encounter for general adult medical examination without abnormal findings Hemoglobin A1c 12/12/23 E11.9 - Type 2 diabetes mellitus without complications, Z00.00 - Encounter for general adult medical examination without abnormal findings JAK2 Mutation PCR 12/12/23 D75.1 - Secondary polycythemia Uric Acid 12/12/23 M10.9 - Gout, unspecified Referrals Psychiatry Referral F32.A - Depression, unspecified Medications: New citalopram 10 mg PO DAILY 90 days 90 tabs 1RF Changed From amlodipine 10 mg PO DAILY 90 tabs 0RF To amlodipine 10 mg PO DAILY 90 days 90 tabs 1RF From lisinopril 40 mg PO DAILY 90 tabs 0RF To lisinopril 40 mg PO DAILY 90 days 90 tabs 1RF Refilled Jardiance (empagliflozin) 10 mg PO QAM 90 days 90 tabs 1RF NS Discontinued amlodipine Discontinued Reason: Doctor's Order 5 mg PO DAILY 90 days 90 tabs 1RF
== END 2023-12-12 16:19 | disposition home or self-care (01) ==
PROVIDERS: PCP Internal Medicine; Visit Provider Internal Medicine
DX: Z00.00 Encounter for general adult medical examination without abnormal findings (principal); E11.65 Type 2 diabetes mellitus with hyperglycemia; F33.9 Major depressive disorder, recurrent, unspecified; E66.811 Obesity, class 1; Z68.31 Body mass index [BMI] 31.0-31.9, adult; I10 Essential (primary) hypertension; E78.2 Mixed hyperlipidemia; K29.80 Duodenitis without bleeding; M10.00 Idiopathic gout, unspecified site; J45.20 Mild intermittent asthma, uncomplicated; D75.1 Secondary polycythemia; G47.33 Obstructive sleep apnea (adult) (pediatric)

== ENCOUNTER → 2023-12-12 14:54 | Outpatient (BNVA) | payer BC, SELFPAY | PROVIDERS: PCP Internal Medicine; Visit Provider Internal Medicine ==